=== PATIENT | female | born 1955 | race Caucasian/White ===

== ENCOUNTER 2018-10-03 12:08 | Inpatient (IN) | payer MEDICARE ==
[~2018-10-03] VITALS: Ht 165.1 cm; Wt 39.5 kg
[~2018-10-03 12:08] MED LIST: ACETAMINOPHEN500 M1 PO; ADVAIR 500-501 EACH INH; ALBUTEROL2.5 MG/0.5 INH; BUPRENORPHIN-N1 EACH SL; DOXYCYCLINE HY100 MG PO; LIDOCAINE30 G TOP; METHOCARBAMOL500 MG PO; OMEPRAZOLE20 MG PO; VENTOLIN HFA18 GM INH; ZOLOFT100 MG PO
--- OUTSIDE RECORDS SUMMARY | 2018-10-03 12:12 | XMS ---
PreManage Notification: KAILYN MEJÍA Security Tal[employer] S[employer]cer Events No recent Security Events currently on file CRITERIA MET - [facility] CARE PROVIDERS Ariel Almaraz MD Primary Care Current PHONE: Unknown oredgardo Case or Maitre D' Current PHONE: Unknown Kaelyn ALMARAZ Current PHONE: Unknown Barbara has no Care Guidelines for this patient. E.D. VISIT COUNT (12 MO.) 1 [facility] Cuevas TOTAL 1 NOTE: Visits indicate total known visits. ED/UCC VISIT TRACKING (12 MO.) 10/03/2018 12:09 N[facility] Kramer OR TYPE: Emergency COMPLAINT: - VOMITING, COUGHING, BODYACHES, SINUS DISCHARGE INPATIENT VISIT TRACKING (12 MO.) No inpatient visits to display in this time frame [email or web address]
[2018-10-03] MEDS ORDERED: MACROBID 100 M100 MG PO (14:49)
--- NOTE | 2018-10-03 16:40 | NUR ---
63 YEAR OLD FEMALE PATIENT ADMITTED TO CCU VIA STRETCHER UNDER DR. GARCIA WITH DX OF SEPSIS R/T PNEUMONIA/UTI. PATIENT IS ALERT ORIENTED AND COOPEATIVE, C/O MILD PAIN IN UPPER RIGHT QUAD, STATES DISCOMFORT INCRREASES WITH COUGH. FOR PAST 3 WEEKS PATIENT HAS BEEN WITH NONPRODUCTIVE COUGH. HAS HAD WEIGHT LOSS OF APPROX 40 LBS OVER THER LAST 3 MONTHS. IVF OF D5 LR HUNG AT 100 ML HR. CROWE CATH PATENT WITH MANUEL URINE NOTED. ADMISSION PROCESS STARTED. FRIEND IN ROOM.
--- NOTE | 2018-10-03 17:00 | NUR ---
ORDERS RECIEVED FOR CT OF ABD. PATIENT STATES SHE FEELS UNABLE TO TAKE PO CONTRAST. DR. GARCIA AWARE. WILL GIVE ZOFRAN TO PRE MEDICATED IN ORDER TO ATTEMPT ORAL CONTAST. PATIENT IS AWARE.
--- NOTE | 2018-10-03 17:15 | NUR ---
ZOFRAN 4 MG IV GIVEN.
[2018-10-03] MEDS ORDERED: ZANAFLEX4 MG PO (17:26)
[2018-10-03] MEDS ORDERED: ALLERGY MEDICAT25 M1 PO (17:28)
--- NOTE | 2018-10-03 17:29 | NUR ---
Medications reconciled with medication vials and patient interview. Patient will use her own buprenorphine 8mg/naloxone 2mg
--- NOTE | 2018-10-03 19:27 | NUR ---
C/O BACK PAIN, REQUESTING TYLENOL. REPORT GIVEN TO NEXT SHIFT.
--- NOTE | 2018-10-03 19:35 | NUR ---
REPORT RECEIVED FROM TIANA MENDEZ. PT AWAKE IN BED. HAS PAINFUL LOOK ON FACE, WAS JUST GIVEN TYLENOL FOR HEADACHE, BACK ACHE AND ABD PAIN. POC EXPLAINED TO PT, PT AGREEABLE. URINE OUTPUT HAS BEEN LESS THAN 25, WILL LET DR GARCIA KNOW. PT ENCOURAGED TO DRINK CT CONTRAST BUT STATES SHE DOESNT FEEL LIKE SHE CAN GET IT DOWN. ALERT AND ORIENTED, LUNGS WITH SL WHEEZES, QUITE DIM AND DIFFICULT FOR PT TO TAKE DEEP BREATH WITHOUT COUGHING AND HAVING PAIN.
--- NOTE | 2018-10-03 20:23 | NUR ---
RT IN TO DO NEB TX.
--- NOTE | 2018-10-03 21:44 | NUR ---
RT IN TO DO PABLO.
--- NOTE | 2018-10-04 | NUR ---
IN TO DO ASSESSMENT AND CHECK ON PT, SHE HAS BEEN RESTFUL. DENIES NEED FOR FURTHER PAIN MEDS AT THIS TIME, BACK TO SLEEP QUICKLY. CONT HOURLY URINE OUTPUTS.
--- NOTE | 2018-10-04 02:00 | NUR ---
PT RESTING, EYES CLOSED, HR 70'S, RR 18. URINE OUTPUT CONT TO BARELY MEET PARAMETERS. CONT TO MONITOR.
--- NOTE | 2018-10-04 04:50 | NUR ---
IN FOR ASSESSMENT. NO REQUESTS OR C/O.
--- NOTE | 2018-10-04 06:22 | NUR ---
PT AWAKE IN BED, STATES SHES HAD THE BEST NIGHTS SLEEP SHES HAD IN A LONG TIME. URINE OUTPUT HAS BEEN 25-30ML/HR THROUGH THE NIGHT. STILL C/O RIGHT SIDEDED UPPER ABDOMINAL PAIN. WILL TRY TO DRINK TO CT CONTRAST THIS MORNING.
--- NOTE | 2018-10-04 08:17 | NUR ---
Assessment completed see flowsheet. pt sitting up in bed coughing. nonproductive hacking cough. Sat 93% on RA. RT in room for breathing tx. Instructed pt on the need to drink contrast for CT at 1000. No needs voiced at this time. will continue to monitor.
--- NOTE | 2018-10-04 08:55 | NUR ---
0845 pt finished PO contrast for CT scan
--- NOTE | 2018-10-04 10:50 | NUR ---
[address] to [address] scan with this RN and transport. pt tolerated CT well brought pt back to room and pt ordered lunch. no needs voiced at this time. will continue to monitor
--- NOTE | 2018-10-04 12:24 | NUR ---
1200 assessment unchanged from previous. pt sitting up in bed eating lunch. no needs or complaints voiced at this time. will continue to monitor.
--- NOTE | 2018-10-04 19:30 | NUR ---
REPORT RC'D FROM DAY SHIFT NURSE DAT. REPORTS CONTINUED HOURLY URINE OUTPUT MONITORING, CT COMPLETED, ON ROOM AIR ALL DAY, AFEBRILE, REFUSED PAIN MEDICATION BUT TYLENOL GIVEN. PT RESTING IN BED WATCHING TV.
--- NOTE | 2018-10-04 20:00 | NUR ---
AAOX4 AND RESPONDING APPROPRAITELY. SINUS RHYTHM ON MONITOR. NO EDEMA. ON ROOM AIR, COARSE AND EXPIRATORY WHEEZE TO BUL, BLL DIMINISHED, R/T IN ROOM TO GIVEN NEB AND INSTRUCT ON I/S AND CPT USE. BOWEL TONES ACTIVE X4, DENIES NAUSEA, ENCOURAGED PO INTAKE. NO ACTE CHANGES TO INTEGUMENTARY. IV SITE FLUSHED, PATENT, WNL, D5LR INFUSING AT [address] DRAINING YELLOW URINE, HOURLY OUTPUT MONITORING, CATH CARE COMPLETED. DENIES OTHER NEEDS. CALL LIGHT WITHIN REACH.
--- NOTE | 2018-10-04 20:37 | NUR ---
Patient was offered to get cleaned up with bed bath wipes and said she "wasnt feeling up to it". Patient did ask for a cola which was OKed by RNAlivia.
--- NOTE | 2018-10-04 20:40 | NUR ---
DR. GARCIA NOTIFIED OF TRENDING URINE OUTPUT. ORDER RC'D FOR 500 ML LR BOLUS ONCE NOW, READ BACK AND VERIFIED.
--- NOTE | 2018-10-04 22:00 | NUR ---
LR BOLUS COMPLETED, HOURLY OUTPUT 100 MLS. WILL CONTINUE TO MONITOR. PT C/O 10/22 KITCHEN, 650 MG PRN TYLENOL GIVEN.
--- NOTE | 2018-10-04 23:00 | NUR ---
150 ML URINE OUTPUT NOTED. PT STATES KITCHEN IMPROVING AFTER PRN TYLENOL, CURRENT RATING 4/10.
--- NOTE | 2018-10-05 00:30 | NUR ---
NO ACUTE CAHNGES TO ASSESSMENT. OUTPUT INCREASED. DENIES PAIN, STATES KITCHEN RESOLVED. ENCOURAGE REST AND REINFORCED PAIN MANAGEMENT.
--- NOTE | 2018-10-05 02:00 | NUR ---
PT RESTING WITH EYES CLOSED, RESPIRATIONS EVEN AND UNLABORED, NO ACUTE DISTRESS NOTED. URINE OUTPUT QS.
--- NOTE | 2018-10-05 04:30 | NUR ---
PT REMAINS RESTFUL. NO ACUTE CHANGES TO ASSESSMENT. PT EASILY FALLS BACK TO SLEEP.
--- NOTE | 2018-10-05 06:43 | NUR ---
PT RESTED WELL FOR MOST OF SHIFT. PAIN WELL CONTROL WITH ONE PRN DOSE TYLENOL. SINUS RHYTHM AND BP WNL. LUNGS SOUNDS MIXED THROUGHOUT SHIFT, TOLERATING ROOM AIR, NONPRODUCITVE COUGH, I/S AND CPT USED WHILE AWAKE. NO NAUSEA. CROWE CATH IN PLACE, VOIDING QS THROUGHOUT SHIFT. D5LR INFUSING AT 125. NO ACUTE CHANGES TO INTEGUMENTARY.
--- NOTE | 2018-10-05 09:26 | NUR ---
Murry catheter d/c per order and IV fluids decreased to 100ml/hr per order
[2018-10-05] MEDS ORDERED: IPRAT-ALBUT 0.5-3 ML INH (09:54)
--- NOTE | 2018-10-05 10:01 | NUR ---
Orders received to transfer pt to med/surg. Report called to Jem MENDEZ. pt belongings packed up and moved with pt to floor via wheelchair.
--- NOTE | 2018-10-05 10:03 | NUR ---
0955: PT ARRIVED TO MED-SURG A TRANSFER FROM CCU. REPORT RECIEVED FROM DAT MENDEZ. PT ARRIVED VIA CHAIR. PT NOW SITTING UP IN THE CHAIR AND HAS PAIN IN HER RIGHT SIDE ONLY WHEN COUGHING AND CHRONIC BACK PAIN. PT STATES HER BREATHING IS "NOT TO BAD". VITAL SIGNS STABLE AT THIS TIME.
--- NOTE | 2018-10-05 10:16 | NUR ---
PATIENT SITTING UP IN CHAIR. RN IN ROOM. ICE WATER AND SODA GIVEN. CALL LIGHT WITHIN REACH. NO OTHER NEEDS AT THIS TIME
--- NOTE | 2018-10-05 10:58 | NUR ---
PATIENT SITTING UP IN CHAIR. PATIENT GOES TO WALK IN THE TILLMAN. PATIENT USES A WALKER. PATIENT BACKS TO CHAIR. ONE PERSON ASSISTING. CALL LIGHT WITHIN REACH. NO OTHER NEEDS AT THIS TIME
--- NOTE | 2018-10-05 11:30 | NUR ---
PT STATES HER KITCHEN HAS IMPROVED TO A 3/10. SHE DECLINES A SHOWER AT THIS TIME.
--- NOTE | 2018-10-05 12:30 | NUR ---
PATIENT SITTING UP IN CHAIR. PATIENT'S LUNCH ORDERED. CALL LIGHT WITHIN REACH. NO OTHER NEEDS AT THIS TIME
--- NOTE | 2018-10-05 12:58 | NUR ---
PT SITTING IN HER CHAIR AND SHE DENIES ANY PROBLEMS AT THIS TIME.
--- NOTE | 2018-10-05 14:06 | NUR ---
PATIENT SITTING UP IN CHAIR. VITAL SIGNS AND I&O DONE. PATIENT GOES TO USE THE BATHROOM. PATIENT USES A WALKER. ONE PERSON ASSISTING. PATIENT BACKS TO CHAIR. CALL LIGHT WITHIN REACH. NO OTHER NEEDS AT THIS TIME
--- NOTE | 2018-10-05 14:22 | NUR ---
PT RESTING IN HER CHAIR WITH NO NEW COMLAINTS AT THIS TIME. SHE HAS VOIDED 350 OF YELLOW URINE AT A SINGLE TIME WITHOUT DIFFICULTY A FEW HOURS FOLLOW THE REMOVAL OF HER CROWE. PT STATES HER CURRENT PAIN LEVEL IN HER BACK AND SIDE ARE UNDER GOOD CONTROL. CALL CHAVEZ WITHIN REACH.
--- NOTE | 2018-10-05 16:56 | NUR ---
TEMP 98.5. PT ENCOURAGED TO CONTINUE USING HER IS WHICH SHE STATES SHE HAS BEEN.
--- NOTE | 2018-10-05 17:36 | NUR ---
PATIENT SITTING UP IN CHAIR. VITAL SIGNS AND I&O DONE. ICE WATER GIVEN. CALL LIGHT WITHIN REACH. NO OTHER NEEDS AT THIS TIME
--- NOTE | 2018-10-05 18:14 | NUR ---
CALL LIGHT ANSWERED. PATIENT USING BATHROOM. PATIENT USES A WALKER. PATIENT GOES TO WALK IN THE TILLMAN. ONE PERSON ASSISTING. PATIENT BACKS TO BED. CALL LIGHT WITHIN REACH. NO OTHER NEEDS AT THIS TIME
--- NOTE | 2018-10-05 20:40 | NUR ---
PATIENT COMPLAINED OF BURNING PAIN AT CROWE SITE 9/10 ON PAIN SCALE. PATIENT STATES " I DON'T UNDERSTAND WHY THERE IS A CROWE WHEN I DIDN'T HAVE MESH PLACED" PROVIDED PATIENT WITH REASSURANCE AND EDUCATION, DISCUSSED BED REST ORDER AND THE NEED FOR THE CROWE CATH. PATIENT APPEARS AGITATED AND RESTLESS, SISTER IN ROOM REQUESTING FOR CROWE TO BE REMOVED OR GIVEN NUMBING MEDICINE. DISCUSSED WITH PATIENT AND SISTER THAT NURSE JUST ADMINISTERED OXYCODONE AND PHENERGAN IV, AND SHOULD ALLOW FOR MEDICINE TO WORK. PATIENT VERBALIZED UNDERSTANDING. PROVIDED PATIENT WITH ICE WATER, JELLO, APPLE SAUCE, AND SALTINE CRACKERS.
--- NOTE | 2018-10-05 21:00 | NUR ---
PATIENT UP TO BATHROOM VOIDING WELL, CLEAR URINE. ADMINISTERED HS MEDICAITONS. FULL BODY ASSESMENT DONE. PAIN TOLERABLE. LUNG SOUNDS COURSE THROUGHOUT. PATIENT STATES " I AM EXCITED TO GO HOME TOMORROW. CALL LIGHT WITHIN REACH. NO OTHER NEEDS AT THIS TIME.
--- NOTE | 2018-10-05 22:07 | NUR ---
patient used call light to ask for assistance into the restroom. Her IV Pump was also beeping so VANESSA Coto came along and programmed her pump. Nothing else was needed at this time.
--- NOTE | 2018-10-05 22:45 | NUR ---
BUILDING CERTIFIER ROUNDING NOTE. PT RESTING IN BED WATCHING TV. PT DENIES NEEDS AT THIS TIME. VISITS WITH KAITLIN ABOUT [facility]. PT DENIES NEEDS AT THIS TIME. CALL LIGHT IN REACH. WHITE BOARD UPDATED.
--- NOTE | 2018-10-05 22:49 | NUR ---
Patient used call light to use restroom. She walks well. Her VS and I&Os are complete. Call light within reach along with BST.
--- NOTE | 2018-10-05 23:32 | NUR ---
PATIENT UP TO BATHROOM WITHOUT ASSIST, STRETCHING CORD TO IV PUMP ACROSS ROOM AND URINATING ON FLOOR. PATIENT HAS BEEN UP SEVERAL TIMES IN LAST TWO HOURS, CALLING IN URGENCY TO USE TOILET. URINE CLEAR AND DILUTE. VOIDED 500 ML PLUS MISSING HAT WITH SOME. DR. GARCIA AT [facility], DISCUSSED PATIENT'S URGENCY. NEW ORDER TO DC IV FLUIDS AND STOPPED AT THIS TIME. PATIENT AWARE AND VERBALIZES GRATITUDE STATING " MAYBE NOW I WILL BE ABLE TO GET A GOOD NIGHT'S SLEEP." PATIENT SITTING UP IN BED AT THIS TIME, PROVIDED ICE WATER. NO OTHER NEEDS AT THIS TIME. CALL LIGHT WITHIN REACH.
--- NOTE | 2018-10-06 03:10 | NUR ---
PT UTILIZES CALL LIGHT, REPORTS KITCHEN 10/22. PRN TYLENOL REQUESTED, ADMINISTERED. PT DENIES FURTHER NEEDS. CALL LIGHT IN REACH.
--- NOTE | 2018-10-06 05:00 | NUR ---
PATIENT SLEEPING SOUNDLY. APPEARS CALM. EYES CLOSED. CALL LIGHT WITHIN REACH. RR 14, 02 SATURATION 95% RA.
--- NOTE | 2018-10-06 06:45 | NUR ---
PT RESTED WELL FOR MOST OF SHIFT. PAIN WELL CONTROL WITH ONE PRN DOSE TYLENOL. LUNG SOUNDS COURSE AND CLEAR THROUGHOUT. TOLERATING ROOM AIR WELL. NON PRODUCTIVE COUGH, IS AND CP USED WHILE AWAKE. NO NAUSEA. UP TO THE BATHROOM MULTIPLE TIMES, IV FLUIDS DCD. VOIDING WELL.
--- NOTE | 2018-10-06 07:35 | NUR ---
BEDSIDE REPORT RECIEVED FROM GIANNI MENDEZ. PT RESTING IN BED WITH NO COMPLAINTS AT THIS TIME. CALL CHAVEZ WITHIN REACH.
--- NOTE | 2018-10-06 08:13 | NUR ---
PATIENT IN BED RESTING. PATIENT REFUSED TO GET UP TO CHAIR DUE TO BEING TIRED. CALL LIGHT IN REACH. NO FURTHER NEEDS AT THIS TIME.
[2018-10-06] MEDS ORDERED: LEVOFLOXACIN500 MG PO (09:10)
--- NOTE | 2018-10-06 09:13 | NUR ---
PT RESTING IN BED AND DENIES ANY SOB OR PAIN.
[2018-10-06] MEDS ORDERED: TESSALON PERLE100 MG PO (11:09)
--- NOTE | 2018-10-06 11:17 | NUR ---
DC INSTRUCTIONS GIVEN TO THE PT WITH GOOD UNDERSTANDING STATED. IV'S DC'D WITH TIPS INTACT. PT CALLING FOR HER RIDE HOME AT THIS TIME.
--- NOTE | 2018-10-06 11:38 | NUR ---
PT GETTING READY FOR DC AT THIS TIME. HER PERSONAL BUPRENORPHINE AND NALOXONE SL FILMS WERE RETURNED TO HER. VSS.
== END 2018-10-06 12:15 | disposition home or self-care (01) | DRG 871 ==
LOC: ED 12:08 → CCU 15:59 → MS 10-05 09:50
PROVIDERS: ADMIT Internal Medicine
DX: A40.3 Sepsis due to Streptococcus pneumoniae (principal); J13 Pneumonia due to Streptococcus pneumoniae; E43 Unspecified severe protein-calorie malnutrition; J44.0 Chronic obstructive pulmonary disease with (acute) lower respiratory infection; F11.20 Opioid dependence, uncomplicated; Z68.1 Body mass index [BMI] 19.9 or less, adult; E86.0 Dehydration; R63.4 Abnormal weight loss; K21.9 Gastro-esophageal reflux disease without esophagitis; F39 Unspecified mood [affective] disorder; M54.9 Dorsalgia, unspecified; G89.29 Other chronic pain; Z87.891 Personal history of nicotine dependence; Z88.1 Allergy status to other antibiotic agents; Z88.0 Allergy status to penicillin; Z79.51 Long term (current) use of inhaled steroids; Z79.899 Other long term (current) drug therapy
CPT/HCPCS: 36415; 51702; 71045; 74177; 80053; 81001; 82550; 83605; 83690; 83735; 85025; 87088; 87449; 87899; 94640; 94667; 94668; 99285-25; J0696; J1650; J1956; J2405; J3475; J7040; J7120; Q9967

== ENCOUNTER 2019-05-24 14:33 | Inpatient (IN) | payer MEDICARE ==
[~2019-05-24] VITALS: Ht 165.1 cm; Wt 39.8 kg
[~2019-05-24 14:33] MED LIST changes: +ALLERGY MEDICAT25 M1 PO; +IPRAT-ALBUT 0.5-3 ML INH; +LEVOFLOXACIN500 MG PO; +MACROBID 100 M100 MG PO; +TESSALON PERLE100 MG PO; +ZANAFLEX4 MG PO
--- OUTSIDE RECORDS SUMMARY | 2019-05-24 15:29 | XMS ---
PreManage Notification: KAILYN MEJÍA Security [employer] Events No recent Security Events currently on file CRITERIA MET - [facility] CARE PROVIDERS BETITO [facility] 10/03/2018-Current PHONE: [phone] Ariel Almaraz MD Primary Care Current PHONE: Unknown sukhi Javier or Brand Attendant Current PHONE: Unknown Kaelyn ALMARAZ Current PHONE: Unknown Barbraa has no Care Guidelines for this patient. Care History Medical/Surgical 10/03/2018 [facility] - Patient is currently established with [facility]. If patient is seen in the ED during business hours. Please contact CHWs at [facility]. Care Recommendation: This patient has had 5 or more Emergency Department visits in the last 12 months.\T\nbsp; Patient requires education on the scope and purpose of the ED as an acute care provider not a Primary Care Provider and should not be utilized for chronic conditions.\T\nbsp; These are guidelines and the provider should exercise clinical judgment when providing care. E.D. VISIT COUNT (12 MO.) 2 [facility]. TOTAL 2 NOTE: Visits indicate total known visits. ED/UCC VISIT TRACKING (12 MO.) 05/24/2019 14:35 [facility] OR TYPE: Emergency COMPLAINT: - ABD MASS 10/03/2018 12:09 [facility] OR TYPE: Emergency COMPLAINT: - VOMITING, COUGHING, BODYACHES, SINUS DISCHARGE INPATIENT VISIT TRACKING (12 MO.) 10/03/2018 15:59 [facility] OR TYPE: Medical Surgical COMPLAINT: - SEPSIS DIAGNOSES: - Chr obstructive pulmon disease with (acute) lower resp infct - Gastro-esophageal reflux disease without esophagitis - Other chronic pain - Other chronic pain - Opioid dependence, uncomplicated - Allergy status to penicillin - Sepsis due to Streptococcus pneumoniae Sepsis du - Other residential (current) drug therapy - Dehydration - Pneumonia due to Streptococcus pneumoniae - Abnormal weight loss - Pneumonia due to Streptococcus pneumoniae - Unspecified mood [affective] disorder - Gastro-esophageal reflux disease without esophagitis - Chr obstructive pulmon disease with (acute) lower resp infct - Opioid dependence, uncomplicated - Abnormal weight loss - 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
--- NOTE | 2019-05-24 18:16 | EKG ---
[facility] [address] [place] [address] Signed Normal sinus rhythm Minimal voltage criteria for LVH, may be normal variant Nonspecific T wave abnormality Abnormal ECG No previous ECGs available Confirmed by SARAH DOUGLAS MD ([id number]) on 05/24/2019 6:16:24 PM Electronically Signed By: SARAH DOUGLAS MD 05/24/19 1816 PATIENT NAME: KAILYN MEJÍA POOJA Electrocardiogram DATE OF : 55 PHYSICIAN: SARAH DOUGLAS MD REPORT #: [id number] REPORT IS CONFIDENTIAL AND NOT TO BE RELEASED WITHOUT AUTHORIZATION
--- NOTE | 2019-05-24 18:50 | NUR ---
64YR OLD WOMAN ADMITTED FROM ER VIA STRETCHER TO ROOM 113, PT IS ALERT, ORIENTED, ABLE TO STAND AND TRANSFER ONTO BED WITH ASSIST. NS BOLUS INFUSING INTO R AC, ORIENTED TO ROOM AND CALL LIGHT, ORDERS RECIEVED. DENIES ANY NEEDS AT THIS TIME.
--- NOTE | 2019-05-24 19:24 | NUR ---
SHIFT REPORT RECIEVED FROM TAD MENDEZ. PT REPORTS PAIN 8/10 IN ABD. IV CDI, WNL. WILL LOOK INTO EMAR FOR PAIN RELIEF OPTIONS. NO OTHER NEEDS, CALL LIGHT IN REACH.
--- NOTE | 2019-05-24 19:45 | NUR ---
PT PROVIDED PRN PAIN MEDICATION. ASSESSMENT COMPLETED. RIGHT ABDOMEN HAS RED AREA WEITH BASEBALL SIZED MASS. NO OTHER NEEDS. CALL LIGHT IN REACH.
--- NOTE | 2019-05-24 22:03 | NUR ---
SCHEDULED MED PROVIDED. PT UP TO BR WITH 1PA AND BACK TO BED. VS AND I&O COMPLETED. PT STATES PAIN IN ABD IS 5/10. PT DENIES NEED FOR FURTHER PAIN INTERVENTIONS. NO OTHER NEEDS, CALL LIGHT IN REACH.
--- NOTE | 2019-05-24 22:03 | NUR ---
Potassium chloride, lidocaine mixed in D5- 250 mL with Sourav Morrison via telepharmacy observing. Medication provided to staff nurse for administration.
--- NOTE | 2019-05-25 00:01 | NUR ---
PT RESTING IN BED, EYES CLOSED. RR 16, EVEN, UNLABORED. CALL LIGHT IN REACH.
--- NOTE | 2019-05-25 00:53 | NUR ---
IV MEDICATION HUNG PER ORDER. pt RESTING IN BED. NO REQUESTS AT THIS TIME. CALL LIGHT WITHIN REACH.
--- NOTE | 2019-05-25 01:43 | NUR ---
PT IN 12/22 PAIN IN ABD. PRN PAIN MED PROVIDED.ASSESSMENT, VS AND I&O COMPLETED. IV INFUSING PER ORDER. NO OTHER NEEDS. CALL LIGHT IN REACH.
--- NOTE | 2019-05-25 02:45 | NUR ---
PT COMPLAINS OF NAUSEA. PRN NAUSEA MED PROVIDED. SCHEDULED MED PROVIDED. NO OTHER NEEDS AT THIS TIME. CALL LIGHT IN REACH.
--- NOTE | 2019-05-25 04:12 | NUR ---
PT RESTING IN BED, EYES CLOSED. RR 16, EVEN, UNLABORED. CALL LIGHT IN REACH.
--- NOTE | 2019-05-25 05:59 | NUR ---
PT PAIN 8/10 IN ABD. PRN PAIN MED PROVIDED. SCHEDULED IV MED PROVIDED. VS AND I&O COMPLETED. PT UP TO BR AND BACK TO BED, SBA. NO OTHER NEEDS, CALL LIGHT IN REACH.
--- NOTE | 2019-05-25 06:34 | NUR ---
PT HAS NOT SLEPT WELL THIS SHIFT. PT REQUIRED PRN PAIN MEDICATION SEVERAL TIMES. NAUSEA MEDICATION ONCE. PAIN WAS MODERATELY MANAGED WITH PRN PAIN MED. ABD TENDER, BASEBALL SIZED FIM MASS ON RIGHT ABD WITH REDNESS TO THE SKIN. BOWEL TONES ACTIVE. VSS, UO SUFFICIENT. SBA FOR AMBULATION. IV CDI, WNL, FLUSHED WELL. PT TOLERATED IV MEDICATIONS AND FLUIDS WELL. PT DOES NOT WANT TO WEAR SCDs UNTIL AFTER SURGERY.
--- NOTE | 2019-05-25 07:22 | NUR ---
BEDSIDE REPORT RECEIVED PT AWAKE TALKING WITH DR MILLS
--- NOTE | 2019-05-25 07:52 | NUR ---
PT AWAKE, ALERT, ORIENTED, STATED SHE HAD JUST SPOKE WITH DR MILLS AND UNDERSTANDS SURGERY, SURGICAL CONSENT SIGNED BY HER AT THIS TIME, I ALSO SPOKE TO HER REGARDING POLST FORM FILLED OUT AND SHE CONFIRMS POLST FORM IS HER WISHES AND SHE SIGNED FORMED AT THIS TIME. DENIES ANY QUESTIONS OR CONCERNS.
--- NOTE | 2019-05-25 07:54 | NUR ---
DR MILLS CALLED BACK TO FLOOR AND ORDERED PHOS AND PREALBUMIN TO BE ADDED TO AM BLOOD DRAW, LAB NOTIFIED.
--- NOTE | 2019-05-25 09:53 | NUR ---
PT RESTING IN BED RATES PAIN 7/10 DILAUDID ADMINISTERED. PT UP TO TOILET RETURNS TO RESTING IN BED AGREES PAIN IS NOW WELL CONTOLLED. K RIDER STARTED PT C/O PAIN SLOWED INFUSION. IV STARTED OPPOSITE ARM FOR ABX THERAPY
--- NOTE | 2019-05-25 10:50 | NUR ---
DR MILLS IN TO SEE PT PREOP
--- NOTE | 2019-05-25 11:05 | NUR ---
pt to o/r via bed
--- NOTE | 2019-05-25 15:37 | CONS ---
[facility] [address], [place] [address] Signed DATE OF CONSULTATION: 05/25/2019 CHIEF COMPLAINT: Periumbilical abdominal pain. HISTORY OF PRESENT ILLNESS: Kailyn is a 64-year-old female, I have known for many years, however, I have not seen her in the office in quite some time. Originally, she required an open appendectomy for necrotizing appendicitis. Later, she had a laparoscopic cholecystectomy. She has been a long-time smoker and has COPD. In fact, she had pneumonia in September of this year and finally decided to quit smoking. She apparently has a mood disorder, but she has always been on the anorexic side, really does not take much by mouth. In fact, on this occasion, she is quite cachectic. She told me today that she has never been and has no children. Her 4 of her 5 brothers were all . Her remaining brother was and she has not talked to him since around 2004. Apparently, his does not approve of Kailyn. Kailyn does have a house here in town, but currently has been living with a friend, who has not been feeling well. She has no specific medical or legal [id number]. Nevertheless, she was very clear today about her DNR DNI status with no CPR. She does not want enteral tube feeds and she is not particularly interested in any prolonged time on the ventilator or endotracheal tube. The last month, probably she has been having trouble with what sounds like abdominal pain, probably in the lower abdomen. She received some antibiotics, but never really got completely better. She started to develop erythema and swelling underneath the umbilicus. Consequently, she had gone [facility]. They sent her over to the emergency room for evaluation. Although, the white count is normal. She clearly has a large fluid collection between the mesh and the abdominal wall. It probably is 10 x 12 x 1.5 cm. There are actually bubbles of gas in that. Her chest x-ray also shows her hyperinflated lungs. She was admitted last night and hydrated with consultation to her medical service. Her potassium and magnesium were low and replaced. We are still awaiting those repeat results this morning. Her repeat white blood cell count is good at 9.6. She has also been urinating quite well. In general, she is overall feeling better, but is taking quite a bit of pain medication. PAST MEDICAL HISTORY: Depression/mood disorder, chronic anorexia, gastroesophageal reflux disease, hiatal hernia, cough, COPD, chronic low back pain, ruptured necrotizing appendicitis, cholelithiasis, adenomatous colonic polyps in rectum in 2008, paresthesia of the right lower extremity. PAST SURGICAL HISTORY: Includes her lumbar surgeries without metal remaining, tonsillectomy, open appendectomy in 2008 through a lower midline incision, and laparoscopic cholecystectomy in 2008 as well as upper and lower endoscopy in December 2009. She had her ventral hernia repair Electronically Signed By: MARIA G MILLS MD 05/25/19 1537 PATIENT NAME: KAILYN MEJÍA CONSULTATION DATE OF : 55 REPORT #: [id number] PHYSICIAN: MARIA G MILLS MD PCP: ISMAEL RAMÍREZ DO REPORT IS CONFIDENTIAL AND NOT TO BE RELEASED WITHOUT AUTHORIZATION [address] [address] Signed with a large 22.1 x 27.1 cm [employer] mesh in April 2010. MEDICATIONS: Zoloft, Prilosec, Tylenol, buprenorphine, naloxone, albuterol, tizanidine, diphenhydramine, ipratropium, and albuterol. ALLERGIES: Include erythromycin, azithromycin and Augmentin. SOCIAL HISTORY: She smoked up to two packs of cigarettes a day, but finally quit earlier this year. She does not drink. She is single and has never had children. Four of her five brothers are . She has not talked to her brother since 2004. She is disabled from her back. 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 She uses a cane to ambulate, but did not bring it with her currently. She generally keeps her right lower extremity straight and also has some paresthesia. She does drive on own and does have a house, although she is currently living with a friend. Dr. Ismael Ramírez is her primary care provider. She prefers the [facility]. She explained to me very unequivocally that she wants to be a DNR DNI. She does not want prolonged intubation or ventilatory support. She would accept parenteral nutrition, but not internal nutrition through a feeding tube. FAMILY HISTORY: No family history of colon cancer, heart disease, or abnormal reaction to anesthesia. Her brother of a brain aneurysm. Her maternal grandfather of an abdominal aortic aneurysm and her mom had diabetes. She has no knowledge of her father's side of the family. REVIEW OF SYSTEMS: She had 10 systems reviewed and amazingly she is thinner than what I remember from before. In fact, she is quite cachectic. She says she just does not have much appetite. She said the last 30 days has been worse with her abdominal pain. We did review her DNR DNI status. PHYSICAL EXAMINATION: VITAL SIGNS: Her blood pressure is 125/79, heart rate 94, her respiratory rate 16, her temperature is 100.6 degrees. She is 95% on 2 L nasal cannula. She is 5 feet 5 inches at 39 kg. GENERAL: Kailyn is a 64-year-old female, who actually appears much older than her stated age. It is clear, she has been a long-time smoker. She is actually cachectic. She has some kyphosis. She has mild to moderately distant breath sounds. HEART: Regular rate and rhythm without murmurs. ABDOMEN: Generally soft and flat, not particularly distended, but she clearly has erythema around the skin of the umbilicus and it is swollen and protruding out probably Electronically Signed By: MARIA G MILLS MD 05/25/19 1537 PATIENT NAME: KAILYN MEJÍA CONSULTATION DATE OF : 55 REPORT #: [id number] PHYSICIAN: MARIA G MILLS MD PCP: ISMAEL RAMÍREZ DO REPORT IS CONFIDENTIAL AND NOT TO BE RELEASED WITHOUT AUTHORIZATION [facility] [address], [place] [address] Signed 5-6 cm in diameter. She is tender to palpation. LABORATORY DATA: Her white blood count 9.6, her hemoglobin is 10.9 with neutrophils 80. Potassium is 3.1 with a magnesium 1.0, BUN 16, creatinine 0.7, glucose 104. Urinalysis was negative. Albumin was low at 3.2. Her lipase was 3. RADIOGRAPHIC STUDIES: Her chest x-ray shows hyperinflated clear lungs. CT scan of the abdomen and pelvis is reviewed and she clearly has a 10 x 12 x 1.5 cm fluid collection with gas bubbles between the mesh and the anterior abdominal wall. ASSESSMENT AND PLAN: Kailyn is a 64-year-old significantly debilitated female, who clearly has an infection involving her mesh from 10 years ago. I suspect there was a piece of bowel along the edge or somewhere involved in all this. She is also anemic and has significant cachexia and is quite malnourished. I have reviewed all this in detail with Kailyn and our two nurses present. Kailyn wants to remain a DNR, DNI with no prolonged endotracheal tube or ventilatory support. She declines enteral nutrition, but would accept parenteral nutrition. I explained to Kailyn to fix this we have to use her previous midline incision, take out the mesh and we will have to go through all the small bowel and see if there are any areas that need repaired. She may or may not require resection of bowel. She may or may not require an ostomy. The ostomy could be permanent as well. I explained to her that she is at extremely high risk given her medical history and her nutritional status. We are waiting for her potassium and her magnesium levels to come back this morning and we need to get was repleted and we need to get her surgery probably later today, so long as we can get her electrolytes corrected. At this point, she is urinating well and seems to be hydrated. We did review the risks of the surgery including, but not limited to bleeding, infection, scarring, change in contour of the skin, damage to bowel, infection of the abdomen or the wound as well as possible colostomy as well as realistic mortality and other unforeseen comorbidities. She has expressed understanding and would like to proceed as above. Maria G Mills MD ALB/MODL /[id number] Electronically Signed By: MARIA G MILLS MD 05/25/19 1537 PATIENT NAME: KAILYN MEJÍA CONSULTATION DATE OF : 55 REPORT #: [id number] PHYSICIAN: MARIA G MILLS MD PCP: ISMAEL RAMÍREZ DO REPORT IS CONFIDENTIAL AND NOT TO BE RELEASED WITHOUT AUTHORIZATION [address] [address] Signed cc: DO Maria G Ramachandran MD Copies: ISMAEL RAMÍREZ ANDREW L MD ~ Electronically Signed By: MARIA G MILLS MD 05/25/19 1537 PATIENT NAME: KAILYN MEJÍA CONSULTATION DATE OF : 55 REPORT #: [id number] PHYSICIAN: MARIA G MILLS MD PCP: ISMAEL RAMÍREZ DO REPORT IS CONFIDENTIAL AND NOT TO BE RELEASED WITHOUT AUTHORIZATION
--- NOTE | 2019-05-25 15:49 | NUR ---
05/25/19 1549 Tuyet Frias 1530: PT ARRIVES TO CCU ROOM 129. CCU RN'S HELP SITUATE PT. PT HAS ORAL AIRWAY IN PLACE. SHE IS NOT RESPONSIVE TO STIMULUS AT THIS TIME, BUT IS EXCHANGING AIR.
--- NOTE | 2019-05-25 16:00 | NUR ---
PATIENT ADMITTED TO ROOM [address] MILLS. PT HAS A CENTRAL LINE TO RIGHT IJ III. TPN TO BE STARTED. IV K PHOS AND IV CEFEPIME TO BE GIVEN WELL. PT IS AWAKE, MAINTAING SP02 >90 ON ROOM AIR AT THIS TIME. PT IN A NSR WITH HR IN THE 80-90s. PT MOANING SOME IN PAIN. PRN DILAUDID AVAILABLE. CROWE DRAINING CLEAR YELLOW URINE. UROMETER ADDED TO CROWE. BLOOD PRESSURE STABLE. MIDLINE INCISION COVERED WITH GAUZE, AND HAS AN OPEN AREA PER MINE PATROL. DRESSINGS TO BE CHANGED BID WITH DAKINS SOAKED GAUZE INTO WOUND. SCDs ON. CONTINUE TO MONITOR.
--- NOTE | 2019-05-25 18:09 | NUR ---
PATIENT ASKING FOR PAIN MEDICATION DUE TO 99/10 PAIN. PATIENT GIVEN 1 MG IV DILAUDID. PT THEN BECOMING MORE NAUSEOUS AND GIVEN IV ZOFRAN, 4 MG. PT NORMALLY TAKES SUBOXONE AT HOME. DISCUSSED WTIH DR. MILLS AND ORDER REC'D TO ALLOW PATIENT'S FAMILY TO BRING THIS IN. AFTER DISCUSSING WITH PHARMACIST, SINCE PATIENT'S SUBOXONE HAS NALOXONE IN IT, THIS WOULD POTENTIALLY MAKE PAIN CONTROL HARDER. HOLDING OFF TONIGHT ON THIS MEDICAITON AND WILL DISCUSS FURTHER WITH DR. MILLS IN AM. PATIENT ALSO STATES, "SOMETIMES THAT MED MAKES ME NAUSEOUS." NGT TO RIGHT NARE DRAINING DARK BILE FLUID. PT'S FRIEND, CHUCKY, IN ROOM. CONTINUE TO MONITOR.
--- NOTE | 2019-05-25 19:30 | NUR ---
RECEIVED REPORT FROM VANESSA FLORES. pt RESTING IN BED. REQUESTED PAIN MEDICATIONS FOR 9/10 PAIN AND REPORTED NASUEA MEDS, GIVEN (SEE MAR). ASESSMENT DONE. DRESSING TO MIDLINE INCISION CDI. NG TUBE TO LIS. BLOOD RETURN NOTED ON CENTRAL LINE LUMENS. CROWE CARE DONE, STAT LOCK APPLIED. NO FURTHER REQUESTS AT THIS ITME. CALL LIGHT WITHIN REACH.
--- NOTE | 2019-05-25 20:20 | NUR ---
pt REFUSED NEB TREATMENT AT THIS TIME. LUNG SOUNDS CLEAR, O2 SAT 95%. RT INFORMED. NO FURTHER REQUESTS AT THIS TIME. CALL LIGHT WITHIN REACH.
--- NOTE | 2019-05-25 21:00 | NUR ---
MEDICATIONS GIVEN (SEE MAR). pt RATED PAIN 6/10 AT THIS TIME. NO REQUESTS AT THIS TIME. CALL LIGHT WITHIN REACH.
--- NOTE | 2019-05-25 22:15 | NUR ---
pt REPORTED 8-9/10 PAIN, PRN MEDICATION GIVEN (SEE MAR). REPORTED NAUSEA WAS "FINE RIGHT NOW" WILL CALL IF IT CHANGES.
--- NOTE | 2019-05-25 22:57 | NUR ---
pt RESTING ON LEFT SIDE WITH EYES CLOSED. RESPIRATIONS REGULAR AND UNLABORED. CALL LIGHT WITHIN REACH.
--- NOTE | 2019-05-25 23:28 | NUR ---
ROUNDED ON pt. RESTING WITH EYES CLOSED, RESPIRATIONS REGULAR AND UNLABORED. CALL LIGHT WITHIN REACH.
--- NOTE | 2019-05-26 00:30 | NUR ---
ASSESSMENT DONE. NG TUBE DRAINING TO LIS. NO CHANGES FROM PRIOR ASSESSMENT. PAIN MEDICATION GIVEN FOR 7/10 PAIN. ASSISTED pt TO REPOSITION. URINE DRAINING. NO FURTHER REQUESTS AT THIS TIME. CALL LIGHT WITHIN REACH.
--- NOTE | 2019-05-26 02:13 | NUR ---
ROUNDED ON pt. RESTING WITH EYES CLOSED, RESPIRATIONS REGULAR AND UNLABORED. CALL LIGHT WITHIN REACH.
--- NOTE | 2019-05-26 03:04 | NUR ---
ROUNDED ON pt. REQUESTED PRN PAIN MEDS FOR 9/10 PAIN AND NAUSEA MEDICATION, GIVEN (SEE MAR). EDUCATED ON IMPORTANCE OF USING CALL LIGHT TO NOTIFY STAFF OF PAIN AND NAUSEA, WILL WAKE pt TO MONITOR PAIN AND MEDICATE PRN. pt AGREEABLE TO PLAN. NO FURTHER REQUESTS AT THIS TIME. CALL LIGHT WITHIN REACH.
--- NOTE | 2019-05-26 04:00 | NUR ---
pt REPORTED 7/10 PAIN, PRN MED GIVEN (SEE MAR). STATED NAUSEA IS "OKAY RIGHT NOW" ASSISTED TO REPOSITION. ASSESSMENT DONE. NO FURTHER REQUESTS AT THIS TIME. CALL LIGHT WITHIN REACH.
--- NOTE | 2019-05-26 05:11 | NUR ---
DRESSING CHANGE COMPLETED PER ORDERS. pt REPORTED INCREASED PAIN WITH DRESSING CHANGE AND MOVEMENT. PRN GIVEN (SEE MAR) FOR 9/10 PAIN. ABD PAD AND PACKING SATURATED WITH SEROSANGUINEOUS DRAINAGE. CURRENT DRESSING CDI. NG TUBE DRAINAGE CHANGED COLOR FROM BROWNISH TO REDDISH ALTERNATING WITH PERIODS OF YELLOWISH DRAINAGE. FLUSHED NG TUBE, RESIDUAL YELLOWISH IN COLOR. NG TO LIS. CALL LIGHT WITHIN REACH
--- NOTE | 2019-05-26 06:25 | NUR ---
pt REPORTED 7/10 PAIN, PRN PAIN MED GIVEN (SEE MAR). NO FURTHER REQUESTS AT THIS TIME. NG TUBE DRAINING BROWN DRAINAGE AT THIS TIME. CALL LIGHT WITHIN REACH. IV ABX INFUSING.
--- NOTE | 2019-05-26 07:16 | OR ---
[facility] [address], [place] [address] Signed DATE OF OPERATION: 05/25/2019 SURGEON: Maria G Mills MD PREOPERATIVE DIAGNOSES: 1. Infected periumbilical intraabdominal mesh. 2. Severe protein-calorie malnutrition. POSTOPERATIVE DIAGNOSES: 1. Infected periumbilical intraabdominal mesh. 2. Severe protein-calorie malnutrition. 3. Jejunal fistula. PROCEDURE: 1. Laparotomy with lysis of adhesions. 2. Explantation of mesh. 3. Small bowel resection with [id number] stapled anastomosis. 4. Omentectomy. 5. Placement of right internal jugular triple-lumen catheter. 6. Physician-directed ultrasound. INPUT AND OUTPUT: In was 1800 mL of crystalloid. Estimated blood loss was 200 mL and urine output was 200 mL. FINDINGS: Kailyn had pus starting at the umbilicus and it traveled laterally towards the left. It appears that there was a piece of jejunum on the edge of the mesh that had resulted in a fistula. INDICATIONS: Kailyn is a 64-year-old female I have known for quite some time. I met her initially with necrotizing ruptured appendicitis. It required an open appendectomy. I also did laparoscopic cholecystectomy. She has long-standing protein-calorie malnutrition. She has been a smoker her whole life as well. She developed an infraumbilical incisional hernia from the open appendectomy. We repaired that with intraabdominal mesh in April 2010. Overall, she has been doing fine. About the last month, she was having some trouble with what thought was pain in her lower abdomen. Maybe more on the left than anywhere else. She had been to her primary care provider. She took some antibiotics and things really did not get all that much better. Eventually, she Electronically Signed By: MARIA G MILLS MD 05/26/19 0716 PATIENT NAME: KAILYN MEJÍA OPERATIVE REPORT DATE OF : 55 REPORT #: [id number] PHYSICIAN: MARIA G MILLS MD PCP: ISMAEL RAMÍREZ DO REPORT IS CONFIDENTIAL AND NOT TO BE RELEASED WITHOUT AUTHORIZATION [facility] [address], [place] [address] Signed developed swelling and erythema and warmth of the periumbilical skin. She ended up in the emergency room last night. She had a fever with white count of 9.[address] scan showed a 10 x 12 x 1.5 cm fluid collection between the mesh and the anterior abdominal wall. Of course, there were bubbles in that fluid. We admitted her overnight and hydrated her, started on IV antibiotics. This morning, I met with Kailyn and we reviewed the above findings in detail. She did tell me on this occasion that she wants to be a DNR/DNI. She wants no heroic measures. She wants no prolonged intubation or ventilation. She declined any enteral nutrition. She did accept central venous catheter for parenteral nutrition. She also wanted to proceed with surgery. I explained to her that more than likely she had a piece of small intestine with the fistula generating the abscess. We would utilize the same vertical periumbilical incision and explant the mesh and repair any small bowel if needed. We also planned to place her central venous catheter. She understands the nature of the surgery along with the expected intraop and postop course. We did review the risks including, but not limited to bleeding, infection, scarring, change in contour of the skin, damage to bowel, intraabdominal infection, and recurrent incisional hernia as well as other unforeseen comorbidities. There is also risk to placing her central venous catheter including bleeding, infection, scarring, change in contour of the skin, and pneumothorax requiring chest tube placement. She had expressed understanding and wished to proceed. PROCEDURE NOTE: Kailyn was taken into our operating room and placed in the supine position under general endotracheal tube anesthesia. She was already on preoperative antibiotics and subcutaneous heparin. SCDs were utilized. A Murry catheter was inserted with return of clear yellow urine. She was then prepped and draped in usual sterile fashion. We utilized her previous periumbilical midline incision and we took deep wound cultures at that time. The wound was irrigated and suctioned out. It took us a few minutes with the help of the cautery to work circumferentially in all directions across the top of the mesh and separate the abdominal wall from the mesh. We found the top of the mesh just below the xiphoid process. We were able to follow that around both sides as well as inferiorly midway between the umbilicus and the pubic bone. Eventually, the entire mesh was free and explanted completely. No mesh was left behind. We found that her abscess cavity tracked laterally after the edge of the mesh and that is where we found a piece of jejunum adherent to the edge of the mesh. About 4 cm of that jejunum was quite indurated and inflamed. We went ahead and resected that short segment back to healthy bowel. The proximal and distal part of that section was divided with the HEIDY stapler and that piece of jejunum was passed off to the pathology department. We brought the jejunum back together [id number] with interrupted silk sutures. We then used our 75 mm GI stapler to bring the 2 pieces of bowel together. The ends of the bowel were then closed and divided with the help of the TA-60 stapler. This gave anastomosis well over 2.54 cm in length. We added some additional silk sutures on the anterior staple line to give it some strength as well. There was no mesenteric rent to close. After this, we Electronically Signed By: MARIA G MILLS MD 05/26/19 0716 PATIENT NAME: KAILYN MEJÍA OPERATIVE REPORT DATE OF : 55 REPORT #: [id number] PHYSICIAN: MARIA G MILLS MD PCP: ISMAEL RAMÍREZ DO REPORT IS CONFIDENTIAL AND NOT TO BE RELEASED WITHOUT AUTHORIZATION [facility] [address], [place] [address] Signed did spend time to lyse all the adhesions, we started with the cecum and worked our way back along the terminal ileum all the way back to the ligament of Treitz. We did take some time to free up the right colon and the transverse colon as well. In addition, the omentum had reacted significantly. It was quite thick and indurated, very foul smelling. Consequently, we went ahead and resected the omentum with the help of Pean clamps and 0 Vicryl ties and several small clips. We also freed up transverse colon from the edge of the liver. After this, all the colon and all the small bowel was completely free. I could easily see and palpate the NG tube in her stomach. We then irrigated the abdomen with copious amounts of warm antibiotic saline solution until clear. We brought some of the perineum back up against the abdominal wall near the edge of the incision and we held that in place with a running 2-0 PDS suture. After this, the midline fascia was closed with multiple interrupted [id number] and simple #1 PDS sutures. The wound was irrigated and suctioned out until clear. I closed the dermis above and below the area of the umbilicus with interrupted 3-0 subcuticular Monocryl sutures. We left about 4 cm incision open right at the level of the umbilicus where she had the most induration and infection. We then closed the skin edges above and below the umbilicus with the help of the katt and again we left about 4 cm of the skin open right around the area of the umbilicus. This was then packed with saline-soaked full strength Dakin's gauze. It was covered with dry gauze and tape. After this, our bilateral tap block was placed by our nurse print and pattern designer. In the meantime, I had gone out, completely re-scrubbed and re-gowned. Kailyn was then placed into the Trendelenburg position and her entire neck and chest wall was prepped and draped in the usual sterile fashion. We used the ultrasound to locate her right internal jugular vein and carotid artery. We could easily watch our needle pass through the skin and into the vein itself. We had good withdrawal with dark nonpulsatile venous blood. The wire was able to feed without any resistance whatsoever. The tract was dilated without resistance and the dilator traveled and curved in the appropriate direction. The triple-lumen catheter was inserted up to almost 14 cm. It was held in place at the level of the skin with a silk suture. Each port was able to draw and flush quite readily. The hub was then held onto the side of her neck with interrupted silk sutures. Dry plastic occlusive dressing was applied per nursing staff. After this, Kailyn was weaned from anesthesia, extubated in the OR, and taken to the ICU in stable condition. In the meantime, we have received our portable chest x-ray and it looks like the line is in good position without any evidence of a pneumothorax. In addition, Kailyn did give me permission to call her friend. We did talk over the telephone. I reviewed all this with her in detail. Maria G Mills MD Electronically Signed By: MARIA G MILLS MD 05/26/19 0716 PATIENT NAME: KAILYN MEJÍA OPERATIVE REPORT DATE OF : 55 REPORT #: [id number] PHYSICIAN: MARIA G MILLS MD PCP: ISMAEL RAMÍREZ DO REPORT IS CONFIDENTIAL AND NOT TO BE RELEASED WITHOUT AUTHORIZATION [address] [place], [place] [address] Signed ALB/MODL /[id number] cc: MD Ismael Fang DO Copies: MARIA G MILLS MD, ARIAN DO ~ Electronically Signed By: MARIA G MILLS MD 05/26/19 0716 PATIENT NAME: KAILYN MEJÍA OPERATIVE REPORT DATE OF : 55 REPORT #: [id number] PHYSICIAN: MARIA G MILLS MD PCP: ISMAEL RAMÍREZ DO REPORT IS CONFIDENTIAL AND NOT TO BE RELEASED WITHOUT AUTHORIZATION
--- NOTE | 2019-05-26 08:18 | NUR ---
PATIENT RESTING IN BED, AWAKE, WATCHING TV UPON INITIAL ASSESSMENT. PT NOTED TO BE MOANING/GRIMACING SOME. PT STATES HER PAIN IS A 7/10 AT THIS TIME AND GOING UP IN SEVERITY. PT STATES HER PAIN IS IN HER ABDOMEN. TPN CONTINUES AT 84 ML/HR AT THIS TIME. ASSESSMENT COMPLETE. SCDs ON. CROWE DRAINING YELLOW URINE. CONTINUE TO MONITOR. CA GLUCONATE TO BE GIVEN PER DR. MILLS.
--- NOTE | 2019-05-26 09:28 | NUR ---
PATIENT RESTING IN BED AND STATES HER PAIN WAS ACTUALLY SOMEWHAT RELIEVED BY THE LAST DOSE OF PAIN MEDICATION SHE WAS GIVEN, AND THAT SHE ACTUALLY WAS ABLE TO SLEEP FOR A SHORT PERIOD OF TIME. DENIES FURTHER NEEDS. PHYS THERAPIST IN ROOM AND MAKES PLAN TO COME BACK AROUND 1130 TO HELP PATIENT OUT OF BED AND DO HER EVAL. PT AGREEABLE TO PLAN OF CARE. CONTINUE TO MONITOR.
--- NOTE | 2019-05-26 11:57 | NUR ---
PATIENT UP TO CHAIR WITH PHYS THERAPY. PT TOLERATED WELL, BUT HR UP TO 130s WHILE STANDING. PT APPEARS VERY PAINFUL. PT AGREEABLE TO STAY IN CHAIR FOR LONG SHE CAN TOLERATE. LAST PAIN MEDICATION GIVEN AROUND 1030. TPN, IV ABX CONTINUE. CROWE DRAINING YELLOW URINE. NG TUBE RESECURED WITH TAPE, AND STILL PUTTING OUT LIGHT GREEN BILE LIKE MATERIAL. CONTINUE TO MONITOR.
--- NOTE | 2019-05-26 14:32 | NUR ---
PATIENT RESTING IN CHAIR AT THIS TIME. MEDICATED FOR PAIN (SEE EMAR). WHILE RESTING, HR IN THE 110-120s. URINE OUTPUT ADEQUATE FOR THE 4 HR PERIOD. NGT PUTTING OUT DARK GREEN BILE. CONTINUE TO MONITOR CLOSELY. DRESSING CHANGE TO BE DONE ON ABDOMEN WHEN PATIENT GETS BACK INTO BED.
--- NOTE | 2019-05-26 16:22 | NUR ---
PATIENT HELPED BACK INTO BED AND TRANSFERS WITH 1 PERSON VERY WELL. GOWN CHANGED AND PATIENT'S BACK SIDE WIPED DOWN. PT DENIES WANTING HER HAIR BRUSHED AT THIS TIME. MEDICATED FOR PAIN AND DRESSING CHANGE DONE. PT'S ASSESSMENT OTHERWISE UNCHANGED, EXCEPT FOR HR WHICH CONTINUES TO BE ELEVATED THIS AFTERNOON, CURRENTLY 119 WHILE RESTING IN BED. WILL CONTINUE TO MONITOR CLOSELY. PT REMAINS AFEBRILE. URINE OUTPUT REMAINS ADEQUATE FOR HER WEIGHT. LAST BP 115/75. CALL LIGHT WITHIN REACH.
--- NOTE | 2019-05-26 19:08 | NUR ---
PATIENT CONTINUES TO REST IN BED AT THIS TIME. HR TRENDING DOWN TO 104, CURRENTLY 114. REPORT TO NOC SHIFT.
--- NOTE | 2019-05-26 19:40 | NUR ---
RECEIVED REPORT FROM [facility]. pt RESTING IN BED. WHITEBOARD UPDATED. CALL LIGHT ON pt NOW AWAKE. pt REPORTED 9/10 PAIN. PRN PAIN MED GIVEN. NO FURTHER REQUESTS AT THIS TIME. CALL LIGHT WITHIN REACH.
--- NOTE | 2019-05-26 20:25 | NUR ---
VANESSA VILLAFUERTE IN ROOM TO DO CBG.
--- NOTE | 2019-05-26 21:00 | NUR ---
pt REPORTED 9/10 PAIN, STATED "IT WENT DOWN FOR A BIT BUT NOW IT IS BACK UP" MOANING FREQENTLY. CHEEKS RED. NG TUBE FLUSHED. AIR VENT CLEARED. ASSESSMENT DONE. DRESSING CDI. MEDICATIONS GIVEN (SEE MAR). CALL LIGHT WITHIN REACH.
--- NOTE | 2019-05-26 22:17 | NUR ---
IV ABX COMPLETED, SL. pt REPORTING 9/10 PAIN AND REQUESTED NAUSEA MEDICATION GIVEN (SEE MAR). CALL LIGHT WITHIN REACH.
--- NOTE | 2019-05-26 23:14 | NUR ---
ROUNDED ON pt. RESTING WITH EYES CLOSED, RESPIRATIONS REGULAR AND UNLABORED. RATE = 25. CALL LIGHT WITHIN REACH.
--- NOTE | 2019-05-27 00:05 | NUR ---
BLOOD PRESSURE CUFF REPOSITIONED. pt RESTING WITH EYES CLOSED, RESPIRATIONS REGULAR.
--- NOTE | 2019-05-27 00:45 | NUR ---
ASSESSMENT DONE. pt REPORTED 6/10 PAIN, PRN PAIN MED GIVEN (SEE MAR). NO FURTHER REQUESTS AT THIS TIME. CALL LIGHT WITHIN REACH.
--- NOTE | 2019-05-27 01:48 | NUR ---
RESTING WITH EYES CLOSED, RESPIRATIONS REGULAR AND UNLABORED. CALL LIGHT WITHIN REACH.
--- NOTE | 2019-05-27 02:20 | NUR ---
BLOOD SUGAR TAKEN, SS INSULIN ADMINISTERED. pt REPORTED 6/10 PAIN, PRN MEDICATION GIVEN (SEE MAR). NO FURTHER REQUESTS CALL LIGHT WITHIN REACH.
--- NOTE | 2019-05-27 03:30 | NUR ---
ROUNDED ON pt. RESTING WITH EYES CLOSED, RESPIRATIONS REGULAR AND UNLABORED. CALL LIGHT WITHIN REACH.
--- NOTE | 2019-05-27 04:30 | NUR ---
ASSESSMENT DONE. pt REPORTED 6/10 PAIN, PRN MEDICATION GIVEN (SEE MAR). IV ABX HANGING. WOUND DRESSING CHANGE DONE PER ORDERS. SCANT AMOUNT OF RED DRAINAGE ON PACKING. FRESH DRESSING CDI. NO FURTHER REQUESTS AT THIS TIME. CALL LIGHT WITHIN REACH.
--- NOTE | 2019-05-27 05:39 | NUR ---
pt RESTING IN BED, EYES CLOSED RESPS REGULAR. ABX INFUSING (SEE MAR). CALL LIGHT WITHIN REACH.
--- NOTE | 2019-05-27 06:57 | NUR ---
ROUNDED ON pt. RESTING WITH EYES CLOSED, RESPIRATIONS REGULAR AND UNLABORED. CALL LIGHT WITHIN REACH. UPDATED GIVEN TO DR. MILLS.
--- NOTE | 2019-05-27 07:30 | NUR ---
REPORT RECIEVED. PATIENT REQUESTING PAIN MEDICATION. TALKED WITH PATIENT ABOUT POC FOR DAY. NG PATENT TO CHHAYA. CROWE CATH PATENT WITH CLEAR YELLOW URINE NOTED. ABD DRESSING IS INTACT. CVC PATENT.
--- NOTE | 2019-05-27 08:30 | NUR ---
In and spoke with Cintia. She is not feeling well, as barking at the nurses. Discussed she lives with Arleen who recently had surgery. She feels she will be ok to dc to home and they can care for each other. States there is some concern about finances as they have both had surgery. States they are aware of the [facility] and also [facility]. Cintia would like to dc to home when able.
--- NOTE | 2019-05-27 11:00 | NUR ---
MORE TALKATIVE. MOVING WELL IN BED WITH MINIMAL ASSIST. DENEIS NAUSEA. GOOD U/O.
--- NOTE | 2019-05-27 11:01 | NUR ---
DILAUDID 2 MG IV GIVEN FOR PAIN RATES PAIN 8/10. ENC COUGH AND DEEP BREATHING.
--- NOTE | 2019-05-27 12:37 | NUR ---
SITTING UP IN CHAIR. DILAUDID 2 MG IV GIVEN EARLIER FOR PAIN. ASSESSMENT DONE.
--- NOTE | 2019-05-27 13:35 | NUR ---
REMAINS IN CHAIR. NO DISTRESS NOTED.
--- NOTE | 2019-05-27 13:44 | NUR ---
VANESSA MONTIEL REQUESTED I NOT VISIT PT AT THIS TIME-FINALLY RESTING. WILL FOLLOW NEEDED
--- NOTE | 2019-05-27 13:55 | NUR ---
BACK TO BED WITH ASSIST. DILAUDID 2 MG IV GIVEN PATIENT C/O PAIN RATING 9/10.
--- NOTE | 2019-05-27 14:18 | NUR ---
ZOFRAN 4 MG IV GIVEN FOR NAUSEA.
--- NOTE | 2019-05-27 16:30 | NUR ---
ASSESSMENT DONE. NO CHANGES. TPN AND LIPIDS HUNG PER ORDERS.
--- NOTE | 2019-05-27 16:42 | NUR ---
CONTINUES TO REQUEST PAIN MEDICATION Q 1-2 HRS. HAS BEEN RATING PAIN 8-9/10 TODAY.
[2019-05-27] MEDS ORDERED: REMERON15 MG PO (17:26)
[2019-05-27] MEDS ORDERED: ANORO ELLIPTA1 EACH INH (17:27)
[2019-05-27] MEDS ORDERED: K-TAB ER8 MEQ PO (17:30)
[2019-05-27] MEDS ORDERED: FOLIC ACID1 MG PO (17:32)
[2019-05-27] MEDS ORDERED: VOLTAREN100 GM TOP (17:32)
--- NOTE | 2019-05-27 17:33 | NUR ---
DILAUDID 2 MG IV GIVEN FOR PAIN. C/O SLIGHT NAUSEA, NOT MEDICATED DO TO TIME FACTOR.
--- NOTE | 2019-05-27 18:00 | NUR ---
REPOSITIONED, FACE FLUSHED.
--- NOTE | 2019-05-27 19:30 | NUR ---
RECEIVED REPORT FROM DAY SHIFT. pt RESTING IN BED. REPORTED 8/10 PAIN, PRN PAIN MEDICATION GIVEN (SEE MAR). CALL LIGHT WITHIN REACH.
--- NOTE | 2019-05-27 21:00 | NUR ---
ASSESSMENT COMPLETED. DRESSING CHANGE COMPLETED PER ORDERS. MEDICATIONS GIVEN (SEE MAR). pt RESTING IN BED WITH EYES CLOSED, NO REQUESTS AT THIS TIME. CALL LIGHT WITHIN REACH.
--- NOTE | 2019-05-27 22:19 | NUR ---
IV ABX STARTED (SEE MAR). pt REPORTED 7/10 PAIN, PRN MEDICATION GIVEN (SEE MAR). NO FURTHER REQUESTS AT THIS TIME. CALL LIGHT WITHIN REACH.
--- NOTE | 2019-05-27 23:12 | NUR ---
ROUNDED ON pt. RESTING WITH EYES CLOSED, RESPIRATIONS REGULAR AND UNLABORED. CALL LIGHT WITHIN REACH.
--- NOTE | 2019-05-28 00:15 | NUR ---
ASSESSMENT DONE. pt RESTING WITH EYES CLOSED, RESPIRATIONS REGULAR. WOKE BRIEFLY DURING ASSESSMENT, WAS NOT ABLE TO VERBALIZED A NUMBER FOR PAIN BUT DID NOD WHEN ASKED IF SHE WAS DOING OKAY. CALL LIGHT WITHIN REACH.
--- NOTE | 2019-05-28 01:15 | NUR ---
FULL REPORT RECIEVED FROM HARDY MENDEZ. ALL QUESTIONS ANSWERED.
--- NOTE | 2019-05-28 02:29 | NUR ---
PT O2 SAT DROPPED TO 80% ON ROOM AIR, PT ASSESSED FOUND TO BE SLEEPING SLIGHTLY SLUMPED OVER, REPOSITIONED IN BED. O2 SATS QUICKLY RECOVERED TO LOW 90% ON ROOM AIR.
--- NOTE | 2019-05-28 02:45 | NUR ---
pt sleeping soundly, vitals wnl at this time. pt did not wake for blood glucose test, cbg 127, no insulin coverage needed. iv sites are intact, no redness or swelling noted, fluids infuse easily. urine output remanins greater than QS.
--- NOTE | 2019-05-28 03:45 | NUR ---
PT GIVEN 2 MG IV DILAUDID FOR 8/10 ABD AND GENERALIZED PAIN.
--- NOTE | 2019-05-28 04:20 | NUR ---
PT REPOSITIONED IN BED FROM RIGHT SIDE TO LEFT SIDE, SUPPORTED WITH MULTIPLE PILLOWS, PT RUBY TO ASSIST SOME WITH REPOSITIONING.
--- NOTE | 2019-05-28 08:33 | NUR ---
Med Rec completed, pt was alert but in pain.
--- NOTE | 2019-05-28 08:43 | NUR ---
PATIENT AWAKE UPON INITIAL ASSESSMENT, WATCHING TV. PT REQUESTING PAIN MEDICATION AND THIS WAS GIVEN ( SEE EMAR). ASSESSMENT COMPLETE. PT STATES HER PAIN IS A 7/10 IN HER ABDOMEN AND RISING. PT STATES SHE DID HAVE A BETTER NIGHT THAN THE PREVIOUS NIGHT, BUT STILL VERY PAINFUL. LOOSE COUGH NOTED AND PATIENT ENCOURAGED TO SPEND TIME UP TODAY IN CHAIR AND ALSO AMBULATING. PT AGREEABLE. NGT TO RIGHT NARE CONTINUES TO DRAIN LIGHT GREEN FLUID. TPN AT 84 ML/HR. CROWE DRAINING YELLOW URINE, QS. PT HELPED TO REPOSITION SELF IN BED, TURING ONTO RIGHT SIDE. DRESSING CHANGE TO BE DONE AROUND 0900. PT TO TRANSFER TO MEDICAL FLOOR WITHOUT TELEMETRY THIS AM. PT UPDATED ON PLAN OF CARE FOR THE DAY.
--- NOTE | 2019-05-28 10:11 | NUR ---
PATIENT'S DRESSING CHANGED ON ABDOMEN. WOUND CLEANED WITH SOAP AND WATER ,AND THEN RE PACKED WITH DAKINS SOAKED GAUZE, COVERED WITH ABD PAD AND TAPE. PT PAINFUL DURING DRESSING CHANGE BUT GIVEN PAIN MEDICATION PRIOR TO CHANGE. BED BATH GIVEN. PHYS THERAPY DEFERRED UNTIL A LITTLE LATER THIS AM. PT TO TRANSFER TO MEDICAL FLOOR.
--- NOTE | 2019-05-28 10:45 | NUR ---
PT TRANSFERED TO ROOM 116 FROM CCU. REPORT WAS RECEIVED FROM VANESSA FLORES. PT ARRIVED VIA HOSPITAL BED. PT ALERT AND ORIENTED. NG APPLIED TO LIWS, TPN INFUSING TO BROWN IJ PORT. PT ASSESSMENT COMPLETED. CALL LIGHT IN REACH. NO FURTHER NEEDS OR CONCERNS VOICED.
--- NOTE | 2019-05-28 12:00 | NUR ---
Pt. transfered to the floor. Tired, states not feeling that well.
--- NOTE | 2019-05-28 12:19 | NUR ---
PT RESTING ON RIGHT SIDE IN BED, ALERT AND ORIENTED. CALL LIGHT IN REACH. NG TUBE REMAINS TO LIWS. PT DENIES SOB, NAUSEA OR PAIN. PT DENIES NEEDS OR CONCERNS.
--- NOTE | 2019-05-28 12:34 | NUR ---
PT LAYING ON R SIDE, WITH RT FAUSTINO IN GIVING BREATHING TREAMENT. TOLD PT I WOULD COME BACK AGAIN-SHE KNODDED IN AGEEMENT. WILL FOLLOW NEEDED
--- NOTE | 2019-05-28 13:46 | NUR ---
PT RESTING SUPINE IN BED ALERT AND ORIENTED. PT REPORTS 8/10 PAIN, TO ABDOMINAL SURGICAL SITE. PT REQUESTED AND RECEIVED PRN IV DILAUDID 2MG IV -SEE EMAR. CALL LIGHT AND H2O IN REACH. PT DENIES FURTHER NEEDS OR CONCERNS.
--- NOTE | 2019-05-28 13:47 | NUR ---
PATIENT RESTING IN BED. VITAL SIGNS AND I&O DONE. PATIENT COMPLAINS ABOUT PAIN. RN NOTIFIED. CALL LIGHT WITHIN REACH. NO OTHER NEEDS AT THIS TIME
--- NOTE | 2019-05-28 14:00 | NUR ---
PT LAYING IN BED WITH HAND COVERING EYES, I ASKED PT IF SHE NEEDED THE BLINDS CLOSED SHE STATED NO. SHE STATES I AM JUST PREPARING MYSELF TO GET UP THIS HAS BEEN A ROUGH YEAR. ENCOURAGED HER WITH POSITIVE THOUGHTS THAT THIS MAY BE THE TURNING POINT FOR THE YEAR. TOLD PT I WOULD RETURN TOMORROW TO VISIT WITH HER MORE. SHE IS AGREEABLE TO THIS.
--- NOTE | 2019-05-28 16:34 | NUR ---
Pt reports increased 8/10 pain to abdomen. PRN IV analgesic administered per pt request -see emar. Call light and h2o in reach. Pt also reports headache states she gets 2-3 similar feeling headaches per month and that she usually takes a tylenol but that it often doesn't help. Pt agrees to use call light if headcach persists or worsens. Lights off for comfort. pt denies further needs or concerns.
--- NOTE | 2019-05-28 17:15 | NUR ---
PATIENT SITTING UP IN CHAIR. PATIENT TRANSFERRED TO BED. PATIENT USES WALKER. ONE PERSON ASSISTING. VITAL SIGNS AND I&O DONE. CALL LIGHT WITHIN REACH. NO OTHER NEEDS AT THIS TIME
--- NOTE | 2019-05-28 19:06 | NUR ---
pt reports increased 8/10 pain to abdominal surgical site. Pt requested and received prn iv analgesic. Pt also asssited in repositioning onto left side. Call light and h2o in reach. Pt denies further needs or concerns.
--- NOTE | 2019-05-28 20:57 | NUR ---
ASSESSMENT COMPLETE. PT UPDATED ON PLAN OF CARE AND NEED TO COMPLETE DRESSING CHANGE SOON. PT STATES UNDERSTANDING AND AGREEABLE TO THIS. PT EDUCATED TO CALL AND NOTIFY STAFF IF SHE IS IN NEED OF PAIN MEDICATION. PT DENIES NEEDING ANYTHING FOR PAIN AT THIS TIME. CALL LIGHT WITHIN REACH.
--- NOTE | 2019-05-28 21:18 | NUR ---
pt used call light to ask for pain medication, when asked what her pain level was she states, "Its at an 8 and rising". RN Sherie notified and is currently giving pain medication to pt.
--- NOTE | 2019-05-28 21:22 | NUR ---
previous note was written by myself and not lacey.
--- NOTE | 2019-05-28 21:27 | NUR ---
PT ROLLED TO HER RIGHT SIDE FROM HER LEFT SIDE. TOLERATED FAIRLY WELL. PT IS ABLE TO TURN HERSELF. PILLOW PLACED BEHIND BACK ON LEFT SIDE.
--- NOTE | 2019-05-28 21:55 | NUR ---
VS and I&Os complete. Nothing further needed at this time.
--- NOTE | 2019-05-28 22:42 | NUR ---
PT REPORTS HER ABD TO BE "SPASMING" INTERMITTENTLY. PT REPORTS SHE IS OKAY AT THIS TIME. WANTS MORE PAIN MEDICATION BEFORE DRESSING CHANGE.
--- NOTE | 2019-05-28 23:10 | NUR ---
PT STATES HER ABD TO CONTINUE TO HAVE INTERMITTENT CRAMPING, PT REPORTS SHE HAS NOT PASSED GAS YET BUT THINKS SHE MIGHT SOON. STATES SHE FEELS LIKE HER ABD IS "MOVING". PT ASSISTED WITH MOVING TO HER LEFT SIDE AND PILLOW TUCKED UNDER HER RIGHT SIDE. PT'S BROWN AND WHITE PORTS BOTH STOPPED AND FLUSHED WITH TURBULENT 20 MLS OF SALINE. BOTH DRAW BLOOD BACK EASILY. PT'S BLUE PORT IS NOT IN USE CURRENTLY AND IS NOT FLUSHING OR DRAWING BLOOD BACK. CHARGE NURSE NOTIFIED AND ATTEMPTED TO FLUSH THIS PORT WELL. CONTINUES NOT TO FLUSH. WILL NOTIFY MD IN THE AM.
--- NOTE | 2019-05-28 23:53 | NUR ---
PT'S DRESSING CHANGE COMPLETED TO HER ABD. PT HAS AN APPROXIMATELY 6 INCH INCISION WITH SHIRA ON THE TOP AND BOTTOM AND AN OPEN AREA IN THE MIDDLE THAT IS APPROXIMATELY 2 INCHES WIDE, 2 INCHES IN LENGTH, AND 1 INCH DEEP. PT'S OPEN AREA CLEANSED WITH SOAP AND WATER. DAKINS SOAKED GAUZE WAS THEN PACKED INTO THE WOUND. THE TISSUE INSIDE WAS PINK WITH NO REDNESS NOTED. AN ABD PAD WAS PLACED OVER THE INCISION AND TAPED AROUND THE EDGES. ASSISTED BY SHAKEEL AGOSTO RN.
--- NOTE | 2019-05-29 00:14 | NUR ---
PT RESTING IN BED WITH EYES CLOSED. RESP 16 EVEN AND UNLABORED. OXYGEN SAT 97% ON RA. BED RAILS UP, CALL LIGHT WITHIN REACH.
--- NOTE | 2019-05-29 01:05 | NUR ---
PT AWAKE IN ROOM. PT STATES ABD PAIN IS 8/10. RN WILL PROVIDED PRN PAIN MED. TPN INFUSING PER ORDER. IV CDI, WNL, FLUSHED WELL. NO OTHER NEEDS, CALL LIGHT IN REACH.
--- NOTE | 2019-05-29 01:29 | NUR ---
PT PAIN 8/10 IN ABD AND BACK. PRN PAIN MED PROVIDED. TPN AND IV FLUIDS INFUSING PER ORDER. NO OTHER NEEDS, CALL LIGHT IN REACH.
--- NOTE | 2019-05-29 04:17 | NUR ---
PT STATES PAIN IS 8/10. PRN PAIN MED PROVIDED. SCHEDULED IV MED PROVIDED. ASSESSMENT COMPLETED. PT REPOSITIONED. NG, CENTRAL LINE, CPOX, TPN, SCDs ON. NO OTHER NEEDS, CALL LIGHT INREACH.
--- NOTE | 2019-05-29 05:54 | NUR ---
PT RESTING IN BED, EYES CLOSED. WAKES WHEN RN IN ROOM. SCHEDULED MED PROVIDED. NO OTHER NEEDS, CALL LIGHT IN REACH.
--- NOTE | 2019-05-29 06:09 | NUR ---
PT STATES PAIN IS 7/10 IN ABD. PRN PAIN MED PROVIDED. CPOX 97, RA, 97P, SKIN WPD. NO OTHER NEEDS. CALL LIGHT IN REACH.
--- NOTE | 2019-05-29 07:28 | NUR ---
0655: Report received from Iwona MENDEZ. Pt sleeping at this time with her call rahman within reach. NGT tube to suction, fox to gravity, tpn running to the central line, scd's on and running, cpox is on.
--- NOTE | 2019-05-29 08:39 | NUR ---
PT RESTING IN HER BED WITH A FLAT AFFECT. SHE STATES SHE IS HAVING ABD/BACK PAIN RATED AT AN 8/10 AT THIS TIME, SEE EMAR. PT STATES LITTLE ELSE AT THIS TIME. SEE ASSESSMENT.
--- NOTE | 2019-05-29 09:04 | NUR ---
ABD DRESSING CHANGED ORDERED. THE MIDLINE ABD INCISION MEASURES 17 CM LONG WITH SHIRA IN PLACE AT THE TOP AND BOTTOM OF THE INCISION. THE MIDDLE OF THE INCISION IS OPEN AND MEASURES 4 CM LONG, 2.25 CM WIDE AND 1.5 CM DEEP. THE OPEN AREA HAS NOTED PINK SKIN BUDS WITH A SCANT AMOUNT OF SLOUGH IN THE WOUND BED. THE SURROUNDING TISSUE ALL APPEARS HEALTHY.
--- NOTE | 2019-05-29 10:08 | NUR ---
PT AWOKE WHILE I WAS IN HER ROOM AND SHE ASKED FOR ADDITIONAL PAIN MEIDCATION STATING HER PAIN IS NOW A 7/10.
--- NOTE | 2019-05-29 10:51 | NUR ---
Pt now sitting up in her chair watching tv. She states her pain level is better at this time. She states she did feel "a little dizzy" when she stood up but that is now gone. The pt did have the EGG CASER doing a SBA when she got up.
--- NOTE | 2019-05-29 12:22 | NUR ---
TPN DAY 5 TODAY. REMAINS NPO WITH NGT SUCTIONING GREEN BILIOUS FLUID. GLUCOSE IMPROVED. POC GLUCOSE TODAY 135, 127. MG+ STILL A LITTLE LOW, NA+ LOW TODAY. TPN CURRENTLY PROVIDING AN AVERAGE OF 1279 CALORIES AND 75 GRAMS OF PROTEIN PER 24 HOURS. NO CHANGES RECOMMENDED AT THIS TIME. AWAIT GI FUNCTION FOR ORAL DIET INITIATION.
--- NOTE | 2019-05-29 12:42 | NUR ---
PT RESTING IN HER BED AND SHE STATES "ANOTHER NURSE" JUST RECENTLY MEDICATED HER FOR PAIN. IT APPEARS SHE RECIEVED 2 MG OF IV DILAUDID. SHE NOW RATES HER PAIN AT A 6 WHICH SHE STATES IS COMING DOWN. NG TUBE SECURED TO A SUCTION SECURE DEVICE TO HER NOSE AND THE PINK TAPE REMOVED. NGT CONTINES FUNCTIONING AT LOW INTMIT SUCTION AND WAS FLUSED WITHOUT DIFFICULTY. TPN AND IV ABX CONTINUE INFUSING. CROWE DRAINING AND SCD'S ARE ON AND RUNNING. CALL CHAVEZ WITHIN REACH. WILL CONTINUE TO MONITOR.
--- NOTE | 2019-05-29 13:35 | NUR ---
Pt sleeping at this time.
--- NOTE | 2019-05-29 13:55 | NUR ---
PT LAYING ON L SIDE-NG TUBE AND O2 NC ON PT. SHE APPEARS TO BE RESTING WITH PILLOWS AROUND HER AND NO COVERS. PT STATED SHE IS WARM, AND ALLOWED ME TO PRAY FOR HER. SHE HELD MY HAND AND KNODDED IN AGREEMENT THAT SHE UNDERSTOOD WHEN I TOLD HER I WOULD RETURN. WILL FOLLOW NEEDED
--- NOTE | 2019-05-29 14:47 | NUR ---
In to speak with Cintia. She is resting in bed. States she was just medicated and not feeling well. Cont. with GÉNESIS and dominique in place. Cont. to plan to dc to home with Arleen upon dc.
--- NOTE | 2019-05-29 14:49 | NUR ---
Pt was taken for a walk after instructing her on the importance of moving post op. With 2 person assist and the use of her walker she walked 1/3 of a lap and tolerated fair. She states she has some pain and some nausea following the walk. She is now back to her chair with her feet elevated, back on cpox and ng to suction. Will continue to monitor.
--- NOTE | 2019-05-29 15:05 | NUR ---
PT RESTING IN HER CHAIR WATCHING TV AND STATES HER NAUEA IS NOW GONE.
--- NOTE | 2019-05-29 16:18 | NUR ---
PT STATES HER ABD HAS INCREASED TO AN 8/10, PT MEDICATED ORDERED. SEE EMAR.
--- NOTE | 2019-05-29 16:56 | NUR ---
PT HELPED BACK TO BED PER HER REQUEST. SHE STATES THAT THE PAIN MEDICATION DID HELP SOME AND NOW RATES HER PAIN AT A 7 AND "GOING DOWN". SCD'S REPLACED, CALL CHAVEZ WITHIN REACH.
--- NOTE | 2019-05-29 17:22 | NUR ---
Pt sleeping, sat 97% on room air.
--- NOTE | 2019-05-29 17:53 | PATH ---
[facility] [address], [place] [address] Signed SPECIMEN(S): A HERNIA SAC, GROSS ONLY SPECIMEN(S): B JEJUNUM SPECIMEN(S): C ADDITIONAL JEJUNUM SPECIMEN SOURCE: A. HERNIA SAC, GROSS ONLY B. JEJUNUM C. ADDITIONAL JEJUNUM CLINICAL HISTORY: Abdominal wall incarcerated hernia with abscess. Adhesion of infected mesh to bowel. FINAL PATHOLOGIC DIAGNOSIS: A. Explanted Composix mesh, excision: - Omentum with chronic inflammation and fragment of ulcer tissue. - Surgical mesh. - Negative for malignancy. B. Jejunum, resection: - Ulcerated small bowel with transmural defect and associated inflammation and reactive changes. - Serosal fibrous adhesions and acute serositis. - Viable surgical margins. - Negative for dysplasia or malignancy. C. Jejunum, additional, resection: - Anastomosed segments of small bowel with fibrous adhesions and acute serositis. - Viable surgical margins. - Negative for dysplasia or malignancy. NAL:caw:C2NR MICROSCOPIC EXAMINATION: Histologic sections of all submitted blocks are examined by light microscopy. These findings, together with the gross examination, support the pathologic diagnosis. GROSS DESCRIPTION: Three specimens are received in three containers, labeled "WP." A. The specimen, labeled "WP, A and explanted Composix mesh on the requisition," is received in formalin and consists of a 17 x 13 x 0.6 cm rubbery to firm flat mccauley irregular synthetic mesh with a PATIENT NAME: KAILYN MEJÍA POOJA PATHOLOGY DATE OF : 55 REPORT #: [id number] PHYSICIAN: GABRIELA MAHAJAN PCP: ABY RAMÍREZ DO REPORT IS CONFIDENTIAL AND NOT TO BE RELEASED WITHOUT AUTHORIZATION [facility] [address], [place] [address] Signed minimal amount of attached fibrofatty tissue. No masses are identified. Kiln Maintenance sections including a section of the mesh are submitted in cassette A1. B. The specimen, labeled "WP, B and jejunum on the requisition," is received in formalin and consists of a 6 x 3.5 cm segment of small bowel with a minimal amount of attached mesenteric fat. Both surgical margins are secured by a staple line. The bowel wall demonstrates a 2.1 x 1.6 cm transmural defect that is located 1.8 cm from the closest surgical margin. The serosa surrounding the defect is dark red and ragged with a miller exudate. Cysts the mucosa surrounding the defect is dark red and ragged. The mucosa is otherwise miller with the normal intestinal. The small bowel wall varies from 0.6-1.1 cm. The mesenteric fat is grossly unremarkable. Kiln Maintenance sections are submitted as follows: (B1-B2) Surgical margins (B3) Section of bowel wall adjacent to defects (B4) Random sections of small bowel. C. The specimen, labeled "WP C, and additional jejunum on the requisition," is received in formalin and consists of two segments of small bowel that measure 2.1 and 2.3 m that show focal anastomosis to one another along one side. One margin of each segment is open while the opposite is secured by a staple line. The secured surgical margin of each is marked with black ink. The serosa of each piece is miller and smooth. The mucosa of each piece is miller with the normal intestinal folds and no masses. Kiln Maintenance sections are submitted as follows: (C1-C2) Surgical margins of both segments (separate cassettes) (C3) Kiln Maintenance section of each segment of small bowel. SS (under the direct supervision of a pathologist) The Gross Description was prepared using a voice recognition system. The report was reviewed for accuracy; however, sound-alike word errors, addition and/or deletions may occur. If there is any question about this report, please contact Client Services. PERFORMING LABORATORY: The technical component was performed by [facility], [address] [place] [id number] (Metrology Technician: Divya Gonzalez MD; CLIA# [id number]). [facility], [address] [address] (Metrology Technician: Malcolm Mello MD; CLIA# PATIENT NAME: KAILYN MEJÍA PATHOLOGY DATE OF : 55 REPORT #: [id number] PHYSICIAN: GABRIELA MAHAJAN PCP: ABY RAMÍREZ DO REPORT IS CONFIDENTIAL AND NOT TO BE RELEASED WITHOUT AUTHORIZATION [facility] [address], [place] [address] Signed [id number]). Diagnostician: Patrica Henry MD Pathologist Electronically Signed 05/29/2019 Copies: ~ PATIENT NAME: KAILYN MEJÍA PATHOLOGY DATE OF : 55 REPORT #: [id number] PHYSICIAN: GABRIELA PATHOLOGY PCP: ABY RMAÍREZ DO REPORT IS CONFIDENTIAL AND NOT TO BE RELEASED WITHOUT AUTHORIZATION
--- NOTE | 2019-05-29 19:15 | NUR ---
PT RESTING IN BED, EYES CLOSED. SHIFT REPORT RECIEVED FROM TIFFANIE MENDEZ. RR 16, EVEN, UNLABORED. CALL LIGHT IN REACH.
--- NOTE | 2019-05-29 20:38 | NUR ---
PT ABD PAIN 12/22. PRN PAIN MEDICATION PROVIDED. LEFT FA IV CDI, WNL, FLUSHED WELL. NO OTHER NEEDS AT THIS TIME. CALL LIGHT IN REACH.
--- NOTE | 2019-05-29 21:20 | NUR ---
VITALS I&OS AND BLOOD SUGAR DONE AND CHARTED. BEDSIDE TABLE AND CALL LIGHT IN REACH. PT NEEDS NOTHING MORE AT THIS TIME.
--- NOTE | 2019-05-29 22:06 | NUR ---
ASSESSMENT COMPLETED. BANDAGING CHANGED, SURGERY SITE WNL. SCHEDULED MEDS PROVIDED. PRN PAIN MED PROVIDED FOR 9/10 ABD PAIN. CPOX 98, RA. TPN, LIPIDS AND IV MEDS INFUSING PER ORDER. CENTRAL LINES EXCEPT BLUE LINE HAVE GOOD BLOOD RETURN AND FLUSH. BLUE LINE DOES NOT DRAW BACK OR FLUSH. LEFT FA IV CDI, WNL, FLUSHED WELL. NG INTERMITTENT WITH GREEN FLUID. NO OTHER NEEDS AT THIS TIME.
--- NOTE | 2019-05-30 00:52 | NUR ---
PT CALLS TO REPORT PAIN. ABD PAIN 12/22. PRN PAIN MEDICATION PROVIDED. NO OTHER NEEDS. CALL LIGHT IN REACH.
--- NOTE | 2019-05-30 01:56 | NUR ---
BLOOD SUGAR DONE AND CHARTED. PT NEEDS NOTHING AT THIS TIME.
--- NOTE | 2019-05-30 02:39 | NUR ---
PT RESTING IN BED, EYES CLOSED. RR 18, EVEN, UNLABORED. CALL LIGHT IN REACH.
--- NOTE | 2019-05-30 03:51 | NUR ---
ASSESSMENT COMPLETED. CROWE WNL. WHITE LUMEN CENTRAL LINE HEPARIN LOCKED. SCHEDULED MED PROVIDED. ABD PAIN 11/21, PRN PAIN MED PROVIDED. PT ASKED TO TAKE A BREAK FROM SCDs, REMOVED. PT REPOSITIONED. NO OTHER NEEDS AT THIS TIME. CALL LIGHT IN REACH.
--- NOTE | 2019-05-30 05:44 | NUR ---
VS AND I&O'S COLLECTED. PUMPS CLEARED. PT REPORTING INCREASED PAIN, PRIMARY RN JASON NOTIFED. CALL LIGHT IN REACH.
--- NOTE | 2019-05-30 06:27 | NUR ---
SCHEDULED MED PROVIDED. ABD PAIN 01/22. PT MOVED TO CHAIR AND PRN PAIN MED PROVIDED. CPOX 93%, RA. NO OTHER NEEDS, CALL LIGHT IN REACH.
--- NOTE | 2019-05-30 06:45 | NUR ---
PT SLEPT OFF AND ON THIS SHIFT PAIN MANAGED WITH PRN PAIN MED ENOUGH TO ALLOW FOR SHORT PERIODS OF SLEEP. PT CONTINUES TO COMPLAIN OF CRAMPING IN ABD. CENTRAL LINE FLUSHED AND GOOD BLOOD RETURN IN ALL BUT BLUE LUMEN. BLUE LUMEN CONTINUES TO NOT FLUSH OR DRAW. LEFT HAND IV CDI, WNL, FLUSHED WELL. CROWE WNL, PT TOLERATED WELL. NG OUTPUT IS GREEN ON INTERMITENT SUCTION, PT TOLERATES WELL. CPOX TRENDING IN MID 90S. ABD DRESSING CHANGED, INCISION APPEARS WNL. CBG HAS NOT REQUIRED COVERAGE THIS SHIFT. PT TOLERATING IV FLUIDS AND MEDS WELL. VSS, UO SUFFICIENT. A&OX4, GCS 15.
--- NOTE | 2019-05-30 07:00 | NUR ---
BEDSIDE HANDOFF REPORT RECEIVED FROM OPERATIONS LEAD RN. PT RESTING IN CHAIR. TPN INFUSING. PT DENIES OTHER NEEDS AT THIS TIME.
--- NOTE | 2019-05-30 08:00 | NUR ---
PT ASSISTED TO BED BY NURSE AIDE. PT COMPLAINT OF PAIN 8-9/10 TO ABD, GIVEN 1 MG IV DILAUDID. NG TUBE DISCONNECTED FROM WALL SUCTION AND PLACED TO CROWE GRAVITY BAG. PT ON ROOM AIR, CONTINUOUS PULSE OX IN PLACE, LUNG SOUNDS CLEAR. PT NPO, BOWEL TONES HYPOACTIVE, PT DENIES FLATUS. CMS INTACT, WITHOUT EDEMA. TPN INFUSING TO CENTRAL LINE, IV TO LEFT ARM SL. DISCUSSED PLAN OF CARE FOR THE DAY, PT REQUESTING TO REST AT THIS TIME, DENIES OTHER NEEDS.
--- NOTE | 2019-05-30 08:08 | NUR ---
PATIENT WAS UP IN THE CHAIR. SHE REQUESTED PAIN MEDS. NURSE WAS INFORMED. PATIENT WANTED TO GO BACK TO BED. WALKED BACK TO BED WITH WALKER. CALL LIGHT WITHIN REACH. NO FURTHER NEEDS AT THIS TIME.
--- NOTE | 2019-05-30 11:00 | NUR ---
PT GIVEN 1.75 MG IV DILAUDID FOR PAIN 7-8/10 AND FOR DRESSING CHANGED. PT DENIES OTHER NEEDS AT THIS TIME.
--- NOTE | 2019-05-30 11:30 | NUR ---
DRESSING CHANGED TO ABD PER ORDER. WOUND CLEANSED WITH WOUND CLEANSER, PACKED WITH SALINE SOAKED GAUZE AND COVERED WITH DRY GAUZE. PT DENIES OTHER NEEDS AT THIS TIME.
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
--- NOTE | 2019-05-30 13:32 | NUR ---
PT COMPLAINT OF PAIN 01/22 TO ABD, BACK, NECK. GIVEN 2MG IV DILAUDID PER ORDER. CALL PLACED TO DR. MILLS, MESSAGE LEFT TO RETURN CALL. PT BLOOD GLUCOSE ASSESSED, WNL, SS HUMULIN HELD. PT DENIES OTHER NEEDS AT THIS TIME.
--- NOTE | 2019-05-30 13:52 | NUR ---
DR. MILLS RETURNED CALL, DISCUSSED PT UNCONTROLLED PAIN, TELEPHONE ORDER FOR TORADOL 15MG IV Q8PRN FOR PAIN AND OK TO GIVE TYLENOL SUPPOSITORY FOR PAIN.
--- NOTE | 2019-05-30 16:11 | NUR ---
TPN STARTED PER ORDER, SECOND RN VERIFICATION WITH NACHO MENDEZ. IV CEFEPIME INFUSING. PT ASSISTED BACK TO BED FROM CHAIR, SBA. PT DENIES OTHER NEEDS AT THIS TIME.
--- NOTE | 2019-05-30 18:16 | NUR ---
PT CONTINUED TO HAVE SIGNIFICANT PAIN, TORADOL ADDED AND SEEMS TO HELP. PT ON ROOM AIR, CONTINUOUS PULSE OX IN PLACE. NG TUBE TO GRAVITY CROWE BAG, WITHOUT NAUSEA, BOWEL TONES HYPOACTIVE. SALINE GAUZE DRESSING CHANGE COMPLETED. PT SBA, WORKED WITH P.T. NPO, TPN INFUSING. MAGNESIUM, POTASSIUM AND CALCIUM GLUCONATE GIVEN.
--- NOTE | 2019-05-30 19:38 | NUR ---
C/O ABD PAIN 8/10 ABD AND GENERALIZED PAIN. MEDICATED WITH 2MG IV DILAUDID
--- NOTE | 2019-05-30 22:16 | NUR ---
MEDICATED WITH TORADOL 15MG IV AND DILAUDID 1MG IV C/O ABD CRAMPING, 12/22.
--- NOTE | 2019-05-31 00:20 | NUR ---
resting, hob elevated, ngt in place r nare, to gravity suction. no drainage, flusehd earlier, patent. no c/o n/v. R neck CL patent,infusing TPN, no c/o adverse reaction to IVabx. on room air, resp even, unlabored. abd dresingintact. scds off about 1/2 hr ago at her requests. f/cpatent. calllight and fluids at bedside,CPOX in place, sats 99% roomair.
--- NOTE | 2019-05-31 01:30 | NUR ---
c/o 12/22 abd pain, medicated with Dilaudid 2mg IV. Will do 0200 accucjeck scheduled as per pts requests.
--- NOTE | 2019-05-31 04:03 | NUR ---
RESTING, EYES CLOSED, NO FURTHER C/O PAIN OR N/V, REPOSITION SELF IN BED
--- NOTE | 2019-05-31 04:28 | NUR ---
pt c/o 12/22 abd crampingand incisional area pain, medicated with Dilaudid 2mg IV , npo, ngt to gravity, f/c patent. CL r neck patent, ivf infusing, pt awakes easily, cpox in place, sats 99%, p 91 r16
--- NOTE | 2019-05-31 06:10 | NUR ---
Pt has been medicated with Dilaudid 2mg IV every 2hrs, and Toradol X1, with fair to good pain control. NGT R nare to gravity suction, no drainage present. R neck CL patent, IVF TPN infusing w/o problems. SL patent. Abd midline incision w katt in place, dressing changed as per orders. Denies passing gas. F/C patent. Pt repositions self in bed. Call light at bedside. Coop with procedures.
--- NOTE | 2019-05-31 06:34 | NUR ---
VITALS AND I&OS DONE AND CHARTED. GARBAGES EMPTIED AND ROOM CLEANED UP. BEDSIDE TABLE AND CALL LIGHT IN REACH.
--- NOTE | 2019-05-31 06:36 | NUR ---
c/o abd cramping and incisional pain. Medicated with Toradol 15mg IV and Dilaudid 1mg IV. Awakem NGT paptem no drainage, still NPO, TPN infusing.
--- NOTE | 2019-05-31 07:10 | NUR ---
BEDSIDE HANDOFF REPORT RECEIVED FROM DECKHAND RN. PT RESTING IN BED. FLAGYL INFUSION COMPLETED.PT RATIONG PAIN 10/22 AT THIS TIME. PT DENIES NEEDS.
--- NOTE | 2019-05-31 08:15 | NUR ---
patient up to chair with fww one person assist. Full bed bath, oral care, skin care, maeve care, linen change done. call button in reach. SCD's on. no other needs at this time.
--- NOTE | 2019-05-31 08:20 | NUR ---
PT RESTING IN BED. PT RATING PAIN 7/10, REQUESTING DILAUDID, 2MG IV DILAUDID GIVEN. PT ON ROOM AIR, LUNG SOUNDS CLEAR, CONTINUOUS PULSE OX IN PLACE. BOWEL TONES ACTIVE, NG TUBE TO GRAVITY DRAIN, NO DRAINAGE. PT WITH RIGHT IJ CENTRAL LINE, TPN INFUSING TO BROWN PORT, BLUE PORT CONTINUES TO BE OCCLUDED, WHITE PORT WITH BLOOD RETURN, MEDICATIONS GIVEN AND WHITE PORT HEPARIN LOCKED. CMS INTACT, WITHOUT EDEMA. MIDLINE INCISION WITH GAUZE PACKING, SHIRA IN PLACE. MEDICATIONS GIVEN BYNURSING STUDENT WITH SUPERVISION. TURBO ELECTRIC OPERATOR AND SALVAGER HELPER PROVIDING BED BATH. PT DENIES OTHER NEEDS AT THIS TIME. DISCUSSED PT CONDITION WITH DR. MILLS, ORDER TO REMOVE NG TUBE, REMOVE CROWE AND CONTINUE WITH TPN.
--- NOTE | 2019-05-31 09:40 | NUR ---
SPOKE WITH PATIENT IN ROOM. PATIENT IS UP IN CHAIR. PATIENT STATES SHE PLANS TO GO HOME WITH HER FRIEND CHUCKY AT DISCHARGE. PATIENT STATES DR CAME IN TODAY AND STATED THEY WOULD REMOVE THE NGT AND CROWE. PATIENT STATES SHE IS LOOKING FORWARD TO NGT BEING OUT. PATIENT STATES SHE FEELS SAFE TO DISCHARGE HOME WITH HER FRIEND. DENIES QUESTIONS AT THIS TIME.
--- NOTE | 2019-05-31 10:20 | NUR ---
NG TUBE AND CROWE CATH REMOVED BY SAFETY TEACHER WITHOUT COMPLICATION WITH SUPERVISION AT 1000. PT RERQUESTINGPAIN MEDICATION, GIVEN 2 MG IV DILAUDID, IV CEFEPIME INFUSING. PLAN FOR DRESSING CHANGE IN 30 MINUTES. PT SITTING IN CHAIR AND IS COMFORTABLE AT THIS TIME.
--- NOTE | 2019-05-31 11:00 | NUR ---
DRESSING CHANGE COMPLETED TO ABD WOUND, PACKED WITH CLEAN SALINE GAUZE, COVERED WITH DRY GAUZE AND SECURED WITH TAPE. PT TOLERATED WELL. PT DENIES OTHER NEEDS AT THIS TIME.
--- NOTE | 2019-05-31 11:14 | NUR ---
PT SITTING IN CHAIR TALKING ON PHONE. ASKED IF I COULD COME BACK LATER. WILL FOLLOW NEEDED
--- NOTE | 2019-05-31 14:58 | NUR ---
PT WITH PAIN 7/10 TO ABD, GIVEN 2MG IV DILAUDID. PT WITH LEFT LEG CRAMPS, CALF NOT TENDER OR WARM TO PALPATE. SCDS REMOVED. PLAN FOR WALK IN 30 MINUTES TO STRETCH LEGS AND HELP INCREASE GI MOTILITY. PT DENIES OTHER NEEDS AT THIS TIME.
--- NOTE | 2019-05-31 15:15 | NUR ---
PATIENT AMBULATED SMALL LOOP AROUND NURSES STAITION WITH FWW STAND BY ASSIST THEN TO BATHROOM.
--- NOTE | 2019-05-31 16:18 | NUR ---
NEW BAG OF TPN INFUSING, LIPIDS INFUSING, SECOND RN VERIFICATION WITH NACHO MENDEZ. IV CEFEPIME INFUSING. PT RESTING IN BED. PT DENIES OTHER NEEDS AT THIS TIME.
--- NOTE | 2019-05-31 17:07 | NUR ---
NG TUBE AND CROWE CATH REMOVED THIS AM. PT CONTINUES TO BE NPO, DENIES NAUSEA, BOWEL TONES ACTIVE, PT PASSING FLATUS. PT SBA, WALKED IN TILLMAN. TPN AND LIPIDS INFUSING. RIGHT IJ WITH BLUE PORT OCCLUDED, CEFEPIME AND FLAGYL. PT VOIDING QS.
--- NOTE | 2019-05-31 20:05 | NUR ---
c/o 12/22 abd pain, medicated with 2mg Dilaudid IV, IVF infusing w/o problems
--- NOTE | 2019-05-31 22:03 | NUR ---
In bed, awake, c/o 7-8/10 abd pain, medicated with DIlaudid 2mg IV. midline abd incision with katt, abd open area pink edges, no odor, scant amount of yellow drainage noted. Dressing changed with NS soaked gauze and dry gauze. alejandro, states passing gas. Continues to be NPO. TPN and LIpids infusing. R neck Cl intact. SCDS in place, Pt does own mouth care, call light at bedside. Coop with dressing change. Turns self in bed, improved affect, smiling, Coop with assessment.
--- NOTE | 2019-06-01 00:48 | NUR ---
UP TO BR, VOIDED, BACK TO BED 1PA/FWW, C/O 7/10 ABD PAIN, MEDICATED WITH DILAUID 2MG IV. NPO, MOUTH CARE DONE BY SELF. TPN/LIPIDS INFUSING, NO C/O ADVERSE REACTION TO IV ABX. CALL LIGHT AT BEDSIDE
--- NOTE | 2019-06-01 03:24 | NUR ---
up to br, voided, back to bed, 1pa/fww, cpox in place, tolerated well. c/o 12/22 abd pain, medicated with Dilaudid 2mg IV, npo, does own mouth care, tpn infusing
--- NOTE | 2019-06-01 06:37 | NUR ---
Up to br, voided, back to bed, 1pa/fww, tolerated well, c/o 8/10 abd pain, medicated with Shabana 15mg IV and Dilaudid 2mg IV. call light at bedside, NPO
--- NOTE | 2019-06-01 06:40 | NUR ---
TPN infusing R neck area CL patent, No c/o adverse reaction to abx. Has been medicated with Dilaudid 2mg IV 5X and Toradol X!, with good to fair pain relief for abd pain and general pain. Midline abd incision with katt, pink, dry except for incision dehisced at belly button area, dressing changes done, area pink, slight drainage of yellow drainage, no odor. Up to br with 1pa/fww weak gait but much improved. improved affect. Continues to be NPO, does own mouth care. on TPN, using call light appropriately
--- NOTE | 2019-06-01 07:25 | NUR ---
HANDOFF REPORT RECEIVED FROM DRESS SHOE INSPECTOR RN. PT RESTING IN BED. PT DENIES NEEDS AT THIS TIME.
--- NOTE | 2019-06-01 08:10 | NUR ---
PT RESTING IN BED. PT ON ROOM AIR, LUNG SOUNDS CLEAR, O2 SATS 97-99%. PT RATING PAIN 8/10, GIVEN 2MG IV DILAUDID. BOWEL TONES ACTIVE, PT ORDERED BREAKFAST ADVANCED TO FULL LIQUID DIET. TPN INFUSING. CMS INTACT, WITHOUT EDEMA. DISCUSSED PLAN OF CARE FOR THE DAY, ICNLUDING WALKIN GIN THE TILLMAN, DRESSING CHANGES FOR IJ AND AND ABD, PT DENIES OTHER NEEDS AT THIS TIME.
--- NOTE | 2019-06-01 11:00 | NUR ---
PT GIVEN 2 MG IV DILAUDID, CEFEPIME AND CALCIUM GLUCONATE INFUSING. STERILE DRESSING CHANGE COMPLETED TO RIGHT IJ CENTRAL LINE PER PROTOCOL, 7 CM EXPOSED, SITE WITHOUT S/S OF INFECTION. DRESSING CHNAGE COMPLETED TO ABD WOUND, PACKED WITH SALINE GAUZE PER ORDER. PT NOW RESTING COMFORTABLY IN BED. PT DENIES OTHER NEEDS AT THIS TIME.
--- NOTE | 2019-06-01 15:00 | NUR ---
TPN INFUSION ENDED 1 HOUR BEFORE IT SHOULD HAVE, CONTACTED PHARMACY AND NEXT BAG IS NOT AVAILABLE YET. CONTACTED DR. MILLS AND ORDER TO HANG D10 AT SMAE RATE OF TPN OF 62.9 ML/HR, COMPLETED. CEFEPIME AND FLAGYL INFUSION COMPLETED AND WHITE PORT OF IJ HEPARIN LOCKED. PT DENIES OTHER NEEDS AT THIS TIME.
--- NOTE | 2019-06-01 16:10 | NUR ---
TPN INFUSION STARTED TO DISTAL IJ LINE, MEDICATION VERIFIED WITH VANESSA GRIFFITH.
--- NOTE | 2019-06-01 16:58 | NUR ---
PROXIMAL LINE OF IJ FLUSHING WELL, DOES NOT HAVE BLOOD RETURN. DR. MILLS NOTIFIED, ORDER TO INFUSE ALTEPLASE PER CENTRAL LINE PROTOCOL, OK TO FINISH ANTIBIOTIC INFUSION AND THEN DO ALTEPLASE.
--- NOTE | 2019-06-01 16:59 | NUR ---
PATIENT IN BED, PATIENT WALKED WITH PHYSICAL THERAPY ONE SHORT LOOP
--- NOTE | 2019-06-01 17:50 | NUR ---
PT REQUESTING PAIN MEDICATION, RATING PAIN 8-9/10, GIVEN 15 MG IV TORADOL AND 2 MG IV DILAUDID. DISCUSSED PLAN OF CARE FOR THE NIGHT AND ALTEPLASE ORDER. PT DENIES OTHER NEEDS AT THIS TIME.
--- NOTE | 2019-06-01 19:54 | NUR ---
Up to br, voided, back to bed, 1PA/FWW. IVF infusing R neck CL. medicated with 2mg IV dilaudid 12/22 abd pain, midline abd incision with katt open to air, edges pink, dry well approx except at umbilical area dehisced area edges dry, pink no odor slight amount of clear yellow drainage. dressing done as per orders, tolerating full liquid diet well. call light and fluids at bedside
--- NOTE | 2019-06-01 22:28 | NUR ---
c/o 12/22 abd pain . medicated with dilaudid 2mg iv
--- NOTE | 2019-06-02 00:03 | NUR ---
Resting, eyes closed, no resp distress, CPOX inplace, p 79, R16, sats 99% on room air. HOB elevated in pillows to her comfort.R IJ CL infusing Cefepine and TPN. SCDS in place. midline abd incision dressing in place. Fluids and call light at bedside.
--- NOTE | 2019-06-02 01:38 | NUR ---
UP TO BR, VOIDED LARGE AMOUNT OF CLEAR YELLOW URINE. BACK TO BED, 1PA/FWW. C/O 12/22 ABD PAIN, MEDICATED WITH DILAUDID 2MG IV
--- NOTE | 2019-06-02 03:38 | NUR ---
Resting, eyes closed, resp even, unlabored, hob elevated with pillows, IVF TPN infusing, R IJ intact, patent. call light and fluids at bedside
--- NOTE | 2019-06-02 04:41 | NUR ---
Up to br, voided, back to bed, 1pa/fww. C/o abd pain 12/22 medicated with Toradol 15mg and DIlaudid 2mg IV
--- NOTE | 2019-06-02 05:36 | NUR ---
Pt currently awake, watching tv. Has been medicated 4x with Dilaudid 2mg IV and Toradol 15mg IV x1 with good to fair pain relief for abd pain. midline abd incision with katt, edges pink, dehised are at umbilical area with very scant amount of light clear yellow drainage, no odor. dressing changed done s per orders. passing gas, no bm. on full liquids , taking small sips. Up to br 5x with 1pa/fww, tolerating well, weak gait but much improved. repositions self in bed, dry, non productive cough noted. lungs clear, scds off at this time. R IJ CL patent. altaplase used on both white and blue port, both patent now. TPN infusing in brown port w/o problems. uses call light appropriately, improved affect. fresh water at bedside
--- NOTE | 2019-06-02 07:15 | NUR ---
Bedside report received, orders acknowledged. Patient up to toilet with 1PA. TPN infusing.
--- NOTE | 2019-06-02 07:45 | NUR ---
Critical lab value reported, hemoglobin of 6.6. Dr. Ayala notified.
--- NOTE | 2019-06-02 07:47 | NUR ---
patient is up in chair, and linens are changed, patient needed no other assistance at this time
--- NOTE | 2019-06-02 08:00 | NUR ---
Dr. Ayala in room to discuss POC with patient
--- NOTE | 2019-06-02 08:15 | NUR ---
Patient reports pain of 8/10, prn pain medication given (see MAR).
--- NOTE | 2019-06-02 08:38 | NUR ---
Patient returns to bed with 1PA, warm blankets provided. Patient reports fatigue today. Assessment complete, bowel tones active. Patient denies tenderness to palpation. Denies further needs, call light within reach.
--- NOTE | 2019-06-02 09:21 | NUR ---
Blood draw performed on IJ, white port. 8 mls discarded, 5 mls drawn for lab sample. White port flushes and draws blood per protocol. New clave attached to white port. Blood sample sent to lab. New blood band applied to patient with second check with zinc furnace charger, Arielle.
--- NOTE | 2019-06-02 09:24 | NUR ---
PATIENT IN BED, PATIENT IS WAITING TO RECIVE BLOOD, PATIENT HAD NO OTHER NEEDS AT THIS TIME
--- NOTE | 2019-06-02 10:09 | NUR ---
PT working with patient, walked hallways with TPN running at 62.9 mls/hr. Calcium gluconate running at 120 mls/hr and magnesium running at 106 mls/hr. Patient reports pain of 7/10, prn pain medication given (see MAR). Denies further needs, call light within reach.
--- NOTE | 2019-06-02 10:48 | NUR ---
Patient sitting up in bed watching tv. IV abx hung at 25 mls/hr. IV magnesium and IV calcium gluconate finished infusing. TPN continuing to run at 62.9 mls/hr. Patient reports pain of 6/10 after prn pain medication administration, states that "is acceptable right now." Denies nausea. No further needs at this time, call light within reach.
--- NOTE | 2019-06-02 13:26 | NUR ---
Blood tubing primed per protocol. Blood verified by second RN check. Pre-administration vitals taken. Blood running at 30 mls/hr for fifteen minutes. Patient educated on symptoms to report to RN during blood administration. Patient denies pain or symptoms of reaction to blood administration. This RN at the patient bedside.
--- NOTE | 2019-06-02 13:41 | NUR ---
Vital signs taken at 15 minute interval during blood administration. Blood increased to 100 mls/hr. Patient tolerating administration well, denies pain or SOB.
--- NOTE | 2019-06-02 15:50 | NUR ---
First unit of RBCs complete. Post vital signs taken. Patient denies pain or SOB.
--- NOTE | 2019-06-02 15:50 | NUR ---
Second unit of RBCs initiated. Vital signs taken prior to administration. Patient denies pain or SOB.
--- NOTE | 2019-06-02 16:05 | NUR ---
Vital signs taken at 15 minute interval with second infusion of RBCs. Patient denies pain or SOB. Blood rate of 150 mls/hr. Call light within reach.
--- NOTE | 2019-06-02 18:15 | NUR ---
Second unit finished infusing. Vital signs taken post infusion. Patient denies pain or SOB. Lab notified of infusion complete to draw CBC. Call light within reach.
--- NOTE | 2019-06-02 20:36 | NUR ---
in bed watching tv, c/o 8/10 abd pain. medicated with 2mg Dilaudid IV, cbg 116, no coverage, call light and fluids at bedside. no c/o n/v at this time, on regular diet, poor intake. midline abd incision edges well approx except at umbilical site dehisced area, dressing changed as per orders
--- NOTE | 2019-06-02 22:18 | NUR ---
up to br, voided, back to bed, medicated with Dilaudid 2mg IV
--- NOTE | 2019-06-02 23:18 | NUR ---
up to br, voided, bsc brought close to bed, ptdid a return demonstration, tolerated and did well. Abd dressing changed again scant amount of serous drainage noted, no odors. pt instructed on how to change dressing and whjat to inspect for. stated understanding, pt isleft handed. did fair, continue to reinforce how to change dressing prior to dc.
--- NOTE | 2019-06-03 00:20 | NUR ---
AWAKE, WATCHING TV, C/O 8/10 ABD PAIN. MEDICATED WITH DILAUDID 2MG IV
--- NOTE | 2019-06-03 01:59 | NUR ---
0129 - upto bsc, c/o dry heaving, medicated with zofran 4mg IV, cbg 91, fluids and call light at bedside
--- NOTE | 2019-06-03 03:26 | NUR ---
RESTING, EYES CLOSED, RESP EVEN, UNLABORED, IVFINFUSING, R IJ CL PATENT
--- NOTE | 2019-06-03 05:46 | NUR ---
up to bs, c/o 8-01/22 abd pain, no further c/o n/v. Medicated with Dilaudid 2mg IV. Repositions self in bed, R IJ intact
--- NOTE | 2019-06-03 06:19 | NUR ---
pT CURRENTLY AWAKE, WATCHING TV. CONTINUES TO HAVE FLAT AFFECT BUT MUCH IMPROVED. HAS GOT UP TO BSC SEVERAL TIMES W/O HELP AND VOIDED LARGE AMOUNT OFYELLOW URINE,NO BM.STATESPASSING GAS. hAS BEEN MEDICATED WITH DILAUDI 2MG IV 4X WITH GOOD TO FAIR PAIN RELIEF. MEDICATED WTIH ZOFRAN X1 PER C/O DRY HEAVING, NO EMESIS, EFFECTIVE. ABD INCISION OPEN TO AIR, DEHISCED ARE ATUMBILICUS WITH CLEAR-YELLOW SMALL AMOUNT OF DRAINAGE, NO ODOR. PT TRIED TO DO DRESSING CHANGE WITH NURSE WATCHING, HAD A HARD TIME,CONTINUE TO REINFORCE SELF DRESSING CHANGES. NOT TOLERATING REG DIET. CBG AT 0200 WAS 91. FLUIDS AND CALL LIGHT AT BEDSIDE. R IJ CL INTACT, NO C/O ADVERSE REACTION TO ABX BEING INFUSED. ALL PORTS FLUSHING WELL., ENCOURAGE SELF CARE.REASSURE SAFETY
--- NOTE | 2019-06-03 07:16 | NUR ---
RECIEVED BEDSIDE REPORT FROM VANESSA THOMASON. PT IS AWAKE AND ALERT IN BED. HAS CONCERNS ABOUT ITCHING AROUND INCISION AND PUBIC AREA. DR MILLS WILL ORDER BENYADRYL CREAM.
[2019-06-03] MEDS ORDERED: CIPRO500 MG PO (08:18)
[2019-06-03] MEDS ORDERED: FLAGYL500 MG PO (08:18)
[2019-06-03] MEDS ORDERED: SALINE WOUND W210 M1 TOP (08:21)
--- NOTE | 2019-06-03 09:55 | NUR ---
SPOKE WITH PATIENT AND LAURA MANAGER WIRELESS IN ROOM. PATIENT DISCUSSED DISCHARGE PLAN. SHE PLANS ON GOING HOME AND HER FRIEND CHUCKY WILL BE HELPING HER. SHE FEELS SHE IS ABLE TO GET AROUND FINE, IS A LITTLE WEAK. HAS A CANE AND WALKER AT HOME IF NEEDS. DISCUSSED CONCERN OF ABD DRESSING CHANGES TWICE A DAY. PATIENT STATES SHE WORKED WITH NIGHT NURSE ON THIS LAST NIGHT. DID NOT CHANGE IT HERSELF. STATES IT IS AWKWARD TO SEE. DURING THIS CONVERSATION HER FRIEND CHUCKY CALLED. I SPOKE WITH HER TO SEE IF SHE WOULD BE ABLE TO HELP WITH DRESSING CHANGES AT HOME. WE DISCUSSED WHAT IS ENTAILE, MANAGER WIRELESS WAS DOING THIS DRESSING CHANGE WHILE I WAS ON THE PHONE AND WAS ABLE TO DESCRIBE IT. SHE THINKS SHE MIGHT BE ABLE TO HELP WITH THIS, SHE WILL BE IN AFTER 12 TO MEET WITH MANAGER WIRELESS AND PATIENT TO SEE IF SHE THINK SHE CAN DO IT. WE DISCUSSED PATIENT MIGHT BE ABLE TO COME TO WOUND CLINIC FOR DRESSING CHANGES BUT THAT HER INSURANCE WILL HAVE TO BE NOTIFIED TO SEE IF THEY WILL COVER THIS AND TODAY IS A HOLIDAY SO I CAN'T CALL AND SPEAK WITH THEM. SHE STATES THEY COULD AT LEAST DO IT UNTIL INSURANCE CAN BE DEALT WITH IF PATIENT WENT HOME TODAY PLANNED. PATIENT AGREEABLE TO ALL THIS. MANAGER WIRELESS WAS THERE FOR WHOLE CONVERSATION.
--- NOTE | 2019-06-03 10:23 | NUR ---
ROUNDED WITH JALIL, CASE MANAGEMENT. PT RECIEVED A PHONE CALL FROM HER ROOMMATE. JALIL DISCUSSED OPTIONS FOR DRESSING CHANGE. ROOMMATE WILL BE IN LATER TODAY, AFTER HER PHYSICAL THERAPY. RN WILL DO TEACHING FOR PT AND ROOMMATE ON DRESSING CHANGE.
--- NOTE | 2019-06-03 12:06 | NUR ---
PATIENT GOING HOME TODAY. I STOPPED IN TO PROVIDE EDUCATION ON HIGH-CALORIE HIGH-PROTEIN FOODS FOR HOME. SHE STATES SHE WAS EXCITED WHEN HER WEIGHT WAS 95 LBS NOT TOO LONG AGO, THEN SHE WAS HOSPITALIZED AND LOST WEIGHT. SHE SAID SHE NORMALLY WEIGHS 120 LBS, BUT THE LAST TIME SHE WEIGHED 120 LBS WAS IN 2017 WHEN SHE STARTED HAVING STOMACH PROBLEMS. PROVIDED HER A HANDOUT FROM THE [facility] ON HIGH-CALORIE, HIGH-PROTEIN NUTRITION. VERBAL EDUCATION ON ADDING CHEESE, BUTTER, OIL, MAYONNAISE, AND PEANUT BUTTER TO FOODS TO INCREASE CALORIES. SHE LIKES WHOLE MILK, EGGS, CHICKEN, SOME MEAT. DOES NOT LIKE COTTAGE CHEESE OR FISH. SHE IS NOT REAL KEEN ON DRINKING ENSURE - STATES SHE WOULD RATHER GET HER CALORIES FROM FOOD. SHE JUST NEEDS TO EAT SMALL AMOUNTS FREQUENTLY. THIS IS GREAT AND I REMINDED HER TO BE CONSISTENT WITH HER INTAKE, TO MAKE SURE SHE IS EATING OR DRINKING SOMETHING EVERY 2-3 HOURS. SHE LOVES PEPSI. CANNOT EAT NUTS OR SEEDS DUE TO DIVERTICULOSIS.
--- NOTE | 2019-06-03 14:11 | NUR ---
DISCHARGE TEACHING COMPLETE. TAUGHT WOUND CARE/DRESSING TO PT AND HER FRIEND WHO WILL PROVIDE ASSISTANCE. BOTH PARTIES UNDERSTAND THE DRESSING CHANGE PROCESS. GAVE PT PRODUCTS TO CHANGE DRESSING UNTIL THEY CAN GET TO THE PHARMACY. RIGHT IJ CENTRAL LINE REMOVED. PRESSURE HELD FOR >10 MINUTES WITH NO BLEEDING. COVERED SITE WITH GAUZE AND OCCLUSIVE TAPE. PT VERBALIZED UNDERSTANDING TO LEAVE DRESSING IN PLACE FOR 24 HOURS. DISCUSSED HOME ACTIVITY, DIET, FOLLOW UP, WHEN TO CALL THE DR. PT VERBALIZED UNDERSTANDING. PHARMACY IN TO DISCUSS MEDICATIONS. PT HAD NO ADDITIONAL QUESTIONS.
--- NOTE | 2019-06-03 19:53 | DS ---
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 PROCEDURES: 1. Explantation of mesh. 2. Small bowel resection (jejunum) with exuf-eb-sfuk stapled anastomosis. 3. Omentectomy. 4. Placement of right IJ triple lumen catheter with physician-directed ultrasound. HISTORY OF PRESENT ILLNESS: Kailyn is a 64-year-old female, who had presented with a 2-week history of periumbilical abdominal pain. She has had a previous incisional hernia repair with mesh. We had taken to the operating room that same day and explanted all the mesh as well as the omentum. We resected just 3-4 cm of the jejunum and brought it back together [id number]-iq-[id number] with a stapled anastomosis. We had placed a right IJ triple lumen catheter with ultrasound for ongoing support and TPN. She is quite cachectic. Her cultures had grown out Klebsiella. It was sensitive to our cefepime and we also used Flagyl. She has been on cefepime and Flagyl throughout the hospital stay. She has required multiple boluses of calcium, magnesium and potassium. She has slowly but surely made good improvements. We left the skin open around the umbilicus about 2 cm or so. That area is now markedly improved. We are using simple saline gauze packing. She is quite anemic and finally, her hemoglobin had dropped down around 6.6. We gave her couple units of blood yesterday and it is up to 9.7. She has had iron studies and so forth done by our Internal Medicine Service. At this point, she is tolerating a regular diet. She is having lots of gas. She has not had a bowel movement yet. The abdomen is completely soft, flat and nontender. Again, the incision opened in the center about 2 cm is nice and clean. At this point, she is doing well and will be discharged home with her friend, Arleen. DISCHARGE PLANS AND MEDICATIONS: Kailyn will be discharged to home and she can resume her Suboxone. She can supplement that with Tylenol, ibuprofen or Aleve. She can resume any other chronic medications indeed. She can follow her regular diet. She should not do any heavy pushing, pulling, or lifting over about [address] if she is on narcotics. We have already removed all of her katt. She will use a saline gauze twice a day in the wound and otherwise wash and shower as usual with soap and water directly into the wound. We will also give her a prescription for Cipro and Flagyl and will carry that out, I think Electronically Signed By: MARIA G MILLS MD 06/03/191952 PATIENT NAME: KAILYN MEJÍA DISCHARGE SUMMARY DATE OF : 55 REPORT #: [id number] PHYSICIAN: MARIA G MILLS MD PCP: ISMAEL RAMÍREZ DO REPORT IS CONFIDENTIAL AND NOT TO BE RELEASED WITHOUT AUTHORIZATION [id number] [place], [place] [address] Signed another seven days. That will give her a full 17 days of antibiotics. She will follow up in my office in about a week. She has expressed understanding and agrees above plan. Maria G Mills MD ALB/MODL /[id number] cc: MD Ismael Fang DO Copies: MARIA G MILLS MD, ARIAN DO ~ Electronically Signed By: MARIA G MILLS MD 06/03/19 1953 PATIENT NAME: KAILYN MEJÍA DISCHARGE SUMMARY DATE OF : 55 REPORT #: [id number] PHYSICIAN: MARIA G MILLS MD PCP: ISMAEL RAMÍREZ DO REPORT IS CONFIDENTIAL AND NOT TO BE RELEASED WITHOUT AUTHORIZATION
== END 2019-06-03 13:28 | disposition home or self-care (01) | DRG 907 ==
LOC: ED 14:33 → CCU 18:23 → MS 18:23 → CCU 05-25 15:55 → MS 05-28 10:45
PROVIDERS: ADMIT Colon & Rectal Surgery
PROC: 0DBU0ZZ Excision of Omentum, Open Approach (ICD-10-PCS; 2019-05-25)
PROC: 02HV33Z Insertion of Infusion Device into Superior Vena Cava, Percutaneous Approach (ICD-10-PCS; 2019-05-25)
PROC: 3E0T3BZ Introduction of Anesthetic Agent into Peripheral Nerves and Plexi, Percutaneous Approach (ICD-10-PCS; 2019-05-25)
PROC: 0DBA0ZZ Excision of Jejunum, Open Approach (ICD-10-PCS; principal; 2019-05-25 10:39)
PROC: 0WPF0JZ Removal of Synthetic Substitute from Abdominal Wall, Open Approach (ICD-10-PCS; 2019-05-25 10:39)
DX: T85.79XA Infection and inflammatory reaction due to other internal prosthetic devices, implants and grafts, initial encounter (principal); E43 Unspecified severe protein-calorie malnutrition; K63.2 Fistula of intestine; Z68.1 Body mass index [BMI] 19.9 or less, adult; G89.18 Other acute postprocedural pain; B96.1 Klebsiella pneumoniae [K. pneumoniae] as the cause of diseases classified elsewhere; E87.6 Hypokalemia; E83.42 Hypomagnesemia; F32.9 Major depressive disorder, single episode, unspecified; K21.9 Gastro-esophageal reflux disease without esophagitis; J44.9 Chronic obstructive pulmonary disease, unspecified; M54.5 Low back pain; G89.4 Chronic pain syndrome; Y83.4 Other reconstructive surgery as the cause of abnormal reaction of the patient, or of later complication, without mention of misadventure at the time of the procedure; Z66 Do not resuscitate; Z87.891 Personal history of nicotine dependence; Z79.899 Other long term (current) drug therapy; Z79.891 Long term (current) use of opiate analgesic; Z88.1 Allergy status to other antibiotic agents
CPT/HCPCS: 36415; 71045; 74177; 76942; 80048; 80053; 80061; 81001; 82306; 82607; 82728; 82746; 83540; 83690; 83735; 84100; 84134; 84466; 85025; 85610; 85651; 86850; 86900; 86901; 86920; 87070; 87075; 87076; 87077; 87185; 87186; 87205; 88307; 93005; 93010; 94640; 94760; 94762; 96361; 97110; 97116; 97162; 99285-25; C9113; J0610; J0692; J1100; J1170; J1644; J1815; J1885; J2370; J2405; J2550; J2704; J2795; J2997; J3010; J3430; J3475; J3480; J7030; J7040; J7060; P9016; Q9967

== ENCOUNTER 2020-11-27 13:46 | Inpatient (IN) | payer MEDICARE ==
[~2020-11-27] VITALS: Ht 165.1 cm; Wt 35.9 kg
[~2020-11-27 13:46] MED LIST changes: +ANORO ELLIPTA1 EACH INH; -BUPRENORPHIN-N1 EACH SL; +CIPRO500 MG PO; +FLAGYL500 MG PO; +FOLIC ACID1 MG PO; +K-TAB ER8 MEQ PO; +REMERON15 MG PO; +SALINE WOUND W210 M1 TOP; +SUBOXONE 8 MG-1 EAC1 SL; +VOLTAREN100 GM TOP
--- OUTSIDE RECORDS SUMMARY | 2020-11-27 13:48 | XMS ---
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 Care History Medical/Surgical 05/27/2019 [facility] Patient transferred from clinic to ED then admitted.\T\nbsp; Patient has new patient visit on 06/17/[address] Vieyra, 10/03/2018 [facility] - Patient is currently established with [facility]. If patient is seen in the ED during business hours. Please contact CHWs at [facility]. Care Recommendation: If this patient has had 5 or more Emergency Department visits in the last 12 months.\T\nbsp; Patient will require education on the scope and purpose of the ED as an acute care provider not a Primary Care Provider and should not be utilized for chronic conditions.\T\nbsp; These are guidelines and the provider should exercise clinical judgment when providing care. [place] VISIT COUNT (12 MO.) 1 [facility] TOTAL 1 NOTE: Visits indicate total known visits. ED/UCC VISIT TRACKING (12 MO.) 11/27/2020 13:47 N[facility] [place] TYPE: Emergency COMPLAINT: - WEAKNESS INPATIENT VISIT TRACKING (12 MO.) No inpatient visits to display in this time frame [email or web address]
[2020-11-27] MEDS ORDERED: LISINOPRIL10 MG PO (17:52)
[2020-11-27] MEDS ORDERED: GABAPENTIN300 MG PO (17:53)
[2020-11-27] MEDS ORDERED: FLUTICASONE-SA1 EAC5 INH (17:55)
--- NOTE | 2020-11-27 19:15 | NUR ---
PT ARRIVES TO FLOOR VIA STRETCHER, ABLE TO SCOOT HERSELF OVER TO BED. ADMISSION PROCESS COMPLETE. PT DENIES QUESTIONS OR CONCERNS. EDUCATION PROVIDED REGARDING ROOM, POC FOR THIS SHIFT, CALL LIGHT USE. PT DENIES FURTHER NEEDS, PERSONAL ITEMS IN REACH.
--- NOTE | 2020-11-27 20:15 | NUR ---
Walked up to br, sba/cane, voided clear yellow urine, back to bed. mag sulfate started as per orders, med info given. repositioned in bed. coop with assessment, on room air, call light and fluids at hands reach. warm blanket given.
--- NOTE | 2020-11-27 22:38 | NUR ---
AWAKENS EASILY, NO C/O PAIN, N/V OR LOOSE STOOLS. IVF WITH K STARTED AT THIS TIME, MAG RIDER COMPLETED, WARM PAD TO ARMS. CALL LIGHT AT BEDSIDE
--- NOTE | 2020-11-27 23:56 | NUR ---
resting, eyes closed, no distress, hob elevated to her comofrt. IVF with K infusing. toleratng well
--- NOTE | 2020-11-28 01:51 | NUR ---
Up to br, voided, back to bed, no c/o pain, on room air, ivf infusing w/o problems.
--- NOTE | 2020-11-28 02:57 | NUR ---
C/O 11/21 PAIN, MEDICATED WITH FENTANYL 25MCG IV, REASSURED, REPOSITIONS SELF IN BED, IVF INFUSING, USES CALL LIGHT, FRESH FLUIDS GIVEN
--- NOTE | 2020-11-28 03:55 | NUR ---
uP TO BR, VOIDED QS, BACK TO BED, TOLERATED WELL, IVF INFUSING, NO C/O ADVERSE REACTION. NO FURTHER C/O PAIN. ALERT AND ORIENTED, STEADY GAIT
--- NOTE | 2020-11-28 05:54 | NUR ---
up to br, sba, voided, back to bed, medicated with fentnyl 25mcg per c/o 11/21 back pain. ivf infusing
--- NOTE | 2020-11-28 06:01 | NUR ---
pt has slept off and on since admission. on room air, received Magnesium rider IV, IVF w K infusing, has tolerated well. tolerating fluids well, no n/v. no diarrhea. voiding QS. Has been medicated with Fentanyl 25mcg x2 with fair to good pain relief. Currently awake, lab in room, cooperative. pleasant. uses call light
--- NOTE | 2020-11-28 07:45 | NUR ---
REPORT RECEIVED FROM NIGHT RN AND PT. CARE RESUMED. PT. IS ALERT AND ORIENTED. SHE STATES SHE CANNOT GET COMFORTABLE AND HAS ACHING ABDOMINAL PAIN. ADMIN PRN FENTANYL AND GIVEN A WARM BLANKET. LUNGS DIM. IN THE BASES. BOWEL TONES HYPERACTIVE. WEAKENED IN ALL LIMBS WITH COOKY MACHINE OPERATOR STRENGTH AND FOOT PUSHES. IV SITE WNL AND FLUSHES WELL. DISCUSSED MEDS, POC, PAIN MANAGEMENT. PT. LEFT RESTING WITH CALL LIGHT IN REACH.
[2020-11-28] MEDS ORDERED: ADVIL200 MG PO (11:27)
[2020-11-28] MEDS ORDERED: TYLENOL EXTRA500 MG PO (11:28)
--- NOTE | 2020-11-28 11:28 | NUR ---
MED REC COMPLETE
--- NOTE | 2020-11-28 11:36 | NUR ---
MED REC COMPLETE
--- NOTE | 2020-11-28 16:30 | NUR ---
PT. IS REPORTING CRAMPING ABDOMINAL PAIN AND BACK PAIN THROUGHOUT THE DAY. FENTANYL ADMIN. SEVERAL TIMES. FOR TEMPORARY RELIEF. SHE DENIES NAUSEA AT THIS TIME.
--- NOTE | 2020-11-28 18:16 | NUR ---
PT. IS HERE FOR ACUTE KIDNEY INJURY. SHE HAS HAD ABDOMINAL PAIN ALONG WITH DIARRHEA THROUGHOUT THE DAY. CHRONIC BACK PAIN WELL. SHE NEEDS TO USE HER CANE WHEN WALKING WITH SBA, PER P.T.
--- NOTE | 2020-11-28 19:18 | NUR ---
Up to br, 1PSBA,alert and oriented, on room air, uses call light
--- NOTE | 2020-11-28 20:00 | NUR ---
OUT OF BED WALKING IN ROOM. EXTENDING R ARM WITH IV TUBING, INSTRUCTED TO CALL RN, STATED UNDERSTANDING. FRESH WATER GIVEN, UP TO BR, VOIDED, BACK TO BED. RESTLESS, FIDGETTY, DR MUIR IN UNIT, NOTIFIED AND NOTIFIED OF TELERX R/T ZANAFLEX DOSAGE. STATED SHE WOULD REVIEW PTS MEDS. PT NOTIFIED
--- NOTE | 2020-11-28 20:34 | NUR ---
MEDICATED WITH VISTARIL PER C/O INSOMNIA AND RESTLESSNESS. IN BED, TURNS AND REPOSITIONS SELF. IVF INFUSING, TOLERATING SIPS OF FLUIDS
--- NOTE | 2020-11-28 22:04 | NUR ---
very restless, c/o back, neck and head pain 12/22. medicated with fentanyl 25mcg at this time. up to br.
--- NOTE | 2020-11-28 23:26 | NUR ---
up to br, voided, back to bed, 1pa/cane, tolerated well, c/o 7/10 neck and back pain. medicated with fentanyl 25mcg iv. IVF infusing
--- NOTE | 2020-11-29 00:50 | NUR ---
UP TO BR, VOIDED AND HAD A SMALL LIQUID BM. BACK TO BED, 1PA/CANE, C/O PAIN 11/21 MEDICATED WITH FENTANYL 25MCG IV, TOLERATING SIPS OF LIQUIDS, USES CALL LIGHT
--- NOTE | 2020-11-29 02:50 | NUR ---
UP TO BR, VOIDED AND HAD A LOOSE LIQUID BM, BACK TO BED, C/O 6/10 BACK AND NECK PAIN. MEDICATED WITH FENTANYL 25MCG. COOP WITH ASSESSMENT
--- NOTE | 2020-11-29 03:36 | NUR ---
PT WAS INCONTINENT OF LIQUID BOWEL, UP TO BR, VOIDED SMALL AMOUNT OF URINE, AND HAD MORE LIQUID BM. SKIN CARE DONE, CLEAN GOWN AND LINEN. BACK TO BED.
--- NOTE | 2020-11-29 06:01 | NUR ---
pt medicated with fentanyl 25mcg c/o 10/22 back and neck pain.
--- NOTE | 2020-11-29 06:03 | NUR ---
pt has not slept much this shift. on room air. has been medicated with fentanyl 25mcg IV 6X with fair to good pain relief. received first dose of Zanaflex with fair pain control. first dose of vistaril for insomnia, partially effective. Up to br several times voidingQS, has had several loose liquid stools and was incontinent x1 of stool x1. 1PA/cane. IVF infusing w/o problems. Tolerating sips of full liquids, no emesis. repositions self in bed, uses call light
--- NOTE | 2020-11-29 07:28 | NUR ---
Fentanyl 25mcg ivp admin by previous RN
--- NOTE | 2020-11-29 09:19 | NUR ---
Fentanyl 25mcg IVP admin for reports of 6/10 generalized pain.
--- NOTE | 2020-11-29 11:23 | NUR ---
Zofran 4mg IVP admin for reports of nausea.
--- NOTE | 2020-11-29 17:54 | NUR ---
Patient encouraged to drink more fluids. Patient provided with a protein shake from kitchen. No bowel movement yet to send. Patient reports she is feeling better this afternoon. No nausea at this time. Personal supplies and call light within reach.
--- NOTE | 2020-11-29 19:34 | NUR ---
I ASKED PATIENT IF SHE BRUSHED HER TEETH AND WASHED HER FACE AND SHE SAID YES. SHE ALSO SAID SHE GIVES HER SELF A WASH UP EVERYTIME SHE GETS DONE GOING TO THE BATHROOM.
--- NOTE | 2020-11-29 19:39 | NUR ---
REPORT OBTAINED FROM AM SHIFT. PT AWAKE, CALM, WATCHING TV, IVF INFUSING, ON O2
--- NOTE | 2020-11-29 19:39 | NUR ---
REPORT OBTAINED FROM AM RN, PT WATCHING TV. ON ROOM AIR, IVF INFUSING, AWARE OF NEED FOR STOOL SAMPLE. PO INCREAED INTAKE ENCOURAGED, SEMIRECEPTIVE
--- NOTE | 2020-11-29 21:13 | NUR ---
MAT INSPECTOR ROUNDING NOTE. PT UTILIZES CALL LIGHT, REQUESTS TO USE THE BATHROOM. VS OBTAINED, WNL. PT STATES THAT SHE IS FEELING MUCH BETTER, HOPES TO BE DISCHARGED HOME TOMORROW. PT DENIES FURTHER NEEDS AT THIS TIME. CALL LIGHT IN REACH.
--- NOTE | 2020-11-29 21:32 | NUR ---
ON ROOM AIR, COOPERATIVE WITH ASSESSMENT. MUCH MORE ALERT, ORIENED, CALM, NO C/O PAIN. UP TO BR AND VOIDED, BACK TO BED, TOLERATED WELL 1PA/CANE. TOLERATING FLUIDS WELL
--- NOTE | 2020-11-29 22:36 | NUR ---
ANSWERED CALL LIGHT. SBA TO THE BATHROOM AND BACK TO BED. PATIENT USING CANE.
--- NOTE | 2020-11-29 23:14 | NUR ---
resting, no ditress, on room air. IVF infusing, call light at hands reach
--- NOTE | 2020-11-30 01:15 | NUR ---
CALL LIGHT ANSWERED. SBA TO THE BATHROOM AND BACK TO BED. NO OTHER NEEDS AT THIS TIME.
--- NOTE | 2020-11-30 02:49 | NUR ---
pt awake, watching tv, no c/o pain. call light at hands reach
--- NOTE | 2020-11-30 05:43 | NUR ---
PT HAS BEEN AWAKE OFF AND ON THIS SHIFT. ON ROOM AIR. UP TO BR VOIDING QS, NO BM THIS SHIFT, PT AWARE OF NEED FOR STOOL SAMPLE. USES CANE 1PA, IVF INFUSING W/O PROBLEMS, NO C/O PAIN THIS AM. MUCH BRIGHTHER AFFECT AND STAMINE. SIPPING ON ICE CHIPS, PO FLUID ENCOURAGED, RECEPTIVE BUT NOT MUCH INTAKE . USES CALL LIGHT. C/O NASAL AND CHEST STUFFINESS THIS AM. LUNGS DIM AT BASES LLL WITH EXP WHEEZING AUSCULTATED AT THIS TIME. PT WICHING TO GO HOME
--- NOTE | 2020-11-30 07:29 | NUR ---
Patient awake, a&ox4. Patient reports she is feeling better today. No needs at this time. Breakfast ordered. No current needs.
--- NOTE | 2020-11-30 09:05 | NUR ---
PATIENT SITTING UP IN BED RESTING. VITALS AND I&O'S CHARTED. PATIENT SAID SHE WOULD DO AM AND ORAL CARE NEXT TIME SHE IS UP TO BATHROOM. CALL LIGHT IN REACH. NO FURTHER NEEDS AT THIS TIME.
--- NOTE | 2020-11-30 09:25 | NUR ---
INTO ROOM, PATIENT LAYING IN BED WATCHING TV. PATIENT STATES SHE LIVES IN A ONE STORY HOME WITH HER LONG TIME FRIEND CHUCKY KING. PATIENT STATES CHUCKY WILL BE AT HOME TO STAY WITH THE PATIENT WHEN SHE RETURNS HOME. PATIENT STATES SHE DOES HAVE A CANE AT HOME THAT SHE USES FOR LONG DISTANCES WHEN SHE FEELS SHE NEEDS IT. PATIENT PREFERS TO DISCHARGE HOME WHEN READY. PATIENT DENIES FINANCIAL NEEDS AT THIS TIME. ALL DEMOGRAPHIC INFORMATION CONFIRMED. WILL CONTINUE TO VISIT PATIENT DURING HER VISIT.
--- NOTE | 2020-11-30 10:08 | NUR ---
PATIENT GIVEN GASTROGRAFIN IN APPLE JUICE, 10AM DOSE AND 11AM DOSE AT BEDSIDE FOR PATIENT. PATIENT DOES UNDERSTAND AND VERBALLY REPEATS BACK INSTRUCTIONS AND TIME FOR DOSES.
--- NOTE | 2020-11-30 11:30 | NUR ---
It was my pleasure to briefly meet paula Chamberlain and her roommate today. Cintia was eating when I entered the room. She appeared to be in no acute distress, and did not seem to have dificulty with eating. Cintia was oriented to person, place and time, and showed no acute distress at this time. She answered questions appropriately and acknowledged that she was happy with the care she has received while in the hospital. She feels that her room has been kept clean, and she feels that her pain has been managed well. When asked, she did verbalize that the halls were quiet at night and she was able to sleep. She does not express any concerns or share any questions at this time. She is anxious to return home to "take care" of her cat.
--- NOTE | 2020-11-30 11:44 | NUR ---
Patient completed second dose of gastrografin. Imagine made aware.
--- NOTE | 2020-11-30 14:07 | NUR ---
PATIENT IN BED WATCHING TV. VITALS AND I&O'S CHARTED. CALL LIGHT IN REACH. NO FURTHER NEEDS AT THIS TIME.
[2020-11-30] MEDS ORDERED: TIZANIDINE HCL4 MG PO (15:19)
== END 2020-11-30 16:10 | disposition home or self-care (01) | DRG 682 ==
LOC: ED 13:46 → MS 16:27
PROVIDERS: ADMIT Internal Medicine; ATTEND Internal Medicine
DX: N17.9 Acute kidney failure, unspecified (principal); E43 Unspecified severe protein-calorie malnutrition; R64 Cachexia; Z68.1 Body mass index [BMI] 19.9 or less, adult; E86.0 Dehydration; I95.9 Hypotension, unspecified; R19.7 Diarrhea, unspecified; J44.9 Chronic obstructive pulmonary disease, unspecified; R11.0 Nausea; G89.4 Chronic pain syndrome; Z66 Do not resuscitate; Z88.1 Allergy status to other antibiotic agents; Z88.8 Allergy status to other drugs, medicaments and biological substances; F17.200 Nicotine dependence, unspecified, uncomplicated; Z79.899 Other long term (current) drug therapy
CPT/HCPCS: 51701; 71045; 74177; 80048; 80053; 81001; 83735; 84100; 85025; 97116; 97162; 97165; 97530; 99285-25; C9803; J2405; J3010; J3475; J3480; J7040; J7060; J7120; Q0177; Q9967; U0003

== ENCOUNTER 2022-11-21 01:28 | Inpatient (IN) | payer MEDICARE ==
[~2022-11-21] VITALS: Ht 165.1 cm; Wt 43.2 kg
--- OUTSIDE RECORDS SUMMARY | ~2022-11-21 | XMS | Continuity of Care Document ---
Demographics + + + | Address | [address] | | | [place] [address] | + + + | Preferred Language | Unknown | + + + | Marital Status | Never | + + + | Hinduism Affiliation | Unknown | + + + | Race | White | + + + | Ethnic Group | Unknown | + + + Author + + + | Author | [facility] | + + + | Organization | [facility] | + + + | Address | [address] | | | [place] [address] | + + + | Phone | | + + + Care Team Providers + + + + | Care Plastic Surgery Assistant Name | Role | Phone | + + + + Unavailable | Unavailable | + + + + Allergies and Intolerances + + + + + | date | description | facility | type | + + + + + | (no date) | erythromycin base | [facility] | (unknown) | + + + + + | (no date) | potassium | [facility] | (unknown) | | | clavulanate | | | + + + + + | (no date) | azithromycin | [facility] | (unknown) | + + + + + | (no date) | amoxicillin | [facility] | (unknown) | + + + + + Encounters No information. Functional Status No information. Immunizations No information. Medications No information. 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 Results/Labs No information. Social History No information. Vital Signs No information."
--- OUTSIDE RECORDS SUMMARY | ~2022-11-21 | XMS | Continuity of Care Document ---
Demographics + + + | Address | [address] | | | [place] [address] | + + + | Preferred Language | Unknown | + + + | Marital Status | Never | + + + | Taoist Affiliation | Unknown | + + + | Race | White | + + + | Ethnic Group | Unknown | + + + Author + + + | Author | [facility] | + + + | Organization | [facility] | + + + | Address | [address] | | | [place] [address] | + + + | Phone | | + + + Care Team Providers + + + + | Care Pharmacy Technician Name | Role | Phone | + [...] + + + | 2022-01-19 15:52 | OVERNIGHT CAREGIVER (CURRENT) USE OF | [facility] | | [...]
--- OUTSIDE RECORDS SUMMARY | ~2022-11-21 | XMS | Continuity of Care Document ---
Demographics + + + | Address | [address] | | | [place] [address] | + + + | Preferred Language | Unknown | + + + | Marital Status | Never | + + + | Jewish Affiliation | Unknown | + + + | Race | White | + + + | Ethnic Group | Unknown | + + + Author + + + | Author | [facility] | + + + | Organization | [facility] | + + + | Address | [address] | | | [place] [address] | + + + | Phone | | + + + Care Team Providers + + + + | Care Extrusion Engineer Name | Role | Phone | + [...] + + + | 2022-01-19 15:52 | HEAD CHEF (CURRENT) USE OF | [facility] | | [...]
[~2022-11-21 01:28] MED LIST changes: +ADVAIR 100-501 EACH INH; +ADVIL200 MG PO; +ALL DAY ALLERGY10 M3 PO; +FLUTICASONE-SA1 EAC5 INH; +GABAPENTIN300 MG PO; +LISINOPRIL10 MG PO; +NEURONTIN300 MG PO; +TIZANIDINE HCL4 MG PO; +TYLENOL EXTRA500 MG PO
--- OUTSIDE RECORDS SUMMARY | 2022-11-21 01:30 | XMS ---
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 Care History Medical/Surgical 05/27/2019 [facility] Patient transferred from clinic to ED then admitted.\T\nbsp; Patient has new patient visit on 06/17/[address] Vieyra, 10/03/2018 [facility] - Patient is currently established with [facility]. If patient is seen in the ED during business hours. Please contact CHWs at [facility]. Care Recommendation: If this patient has had 5 or more Emergency Department visits in the last 12 months.\T\nbsp; Patient will require education on the scope and purpose of the ED as an acute care provider not a Primary Care Provider and should not be utilized for chronic conditions.\T\nbsp; These are guidelines and the provider should exercise clinical judgment when providing care. [place] VISIT COUNT (12 MO.) 1 NANI Cuevas TOTAL 1 NOTE: Visits indicate total known visits. ED/UCC VISIT TRACKING (12 MO.) 11/21/2022 01:29 N[facility] [place] TYPE: Emergency COMPLAINT: - SOB INPATIENT VISIT TRACKING (12 MO.) No inpatient visits to display in this time frame [email or web address]
[2022-11-21 04:07] VITALS: BP 151/84
[2022-11-21] MEDS ORDERED: PREDNISONE20 MG PO (04:18)
[2022-11-21] MEDS ORDERED: AZITHROMYCIN250 MG PO (04:19)
--- NOTE | 2022-11-21 04:45 | NUR ---
pt ARRIVES TO IA VIA STRETCHER. TRANSFERS SELF TO HOSPITAL BED. pt ON RA. SPO2 WNL. CPOX ON. RT IN ROOM. ORIENTATION TO ROOM PROVIDED. SBA TO BSC FOR VOID, BACK IN BED, SPO2 REMAINS >91% ON RA. pt SOB, LABORED BREATHING, TRIPODING. RT TO DELIVER BREATHING TREATMENT AT THIS TIME. pt HAS CLOTHING AND SHOES WITH HER ONLY. USES A CANE AT HOME WHEN NEEDED. pt STATES SHE'S WAITING ON BREATHING MACHINE FOR SLEEP WITH CAL BUT HASN'T GOTTEN IT YET. LIVES WITH FRIEND CHUCKY IN HOUSE AND DENIES NEEDS. CALL LIGHT IN REACH.
--- NOTE | 2022-11-21 05:00 | NUR ---
PT IN BED, KIRILL GENERALIZED R/T NEBULIZER TREAT, ADMIT ASSESSMENT COMPLETED, PT WITH HOB FULLY ELEVATED, SIDE RAILS X 2, PROPPED WITH PILLOWS, PT DENIES NEEDS AT THIS TIME, LAB IN FOR BLOOD DRAW.
--- NOTE | 2022-11-21 05:38 | NUR ---
CRITICAL LAB REPORT RECEIVED OF LACTIC ACID LEVEL OF 2.1 (DOWN FROM 2.7), CHARGE NURSE NOTIFIED.
--- NOTE | 2022-11-21 06:08 | NUR ---
PT ASLEEP, RESP REG AND FULL, 24/MIN, OXYGEN SATS 92%, IV INFUSING PER LEFT FOREARM, PT LEFT UNDISTURBED.
--- NOTE | 2022-11-21 07:56 | NUR ---
ASSESSMENT COMPLETED. ASSISTED PT UP TO BEDSIDE COMMODE. BECOMES SOB WITH EXERTION. SATS DROPPED TO 88%. REAMINS ON RA. SATS INCREASED TO 93% AFTER BACK TO BED.
[2022-11-21] MEDS ORDERED: ZANAFLEX4 MG PO (08:20)
[2022-11-21] MEDS ORDERED: FLUTICASONE-SA1 EAC5 INH (08:23)
[2022-11-21] MEDS ORDERED: BUPRENORPHINE-1 EACH SL (08:23)
--- NOTE | 2022-11-21 11:00 | NUR ---
Spoke with Cintia. She lives alone in a 1 story home with 1 step. She has chronic COPD with exacerbations and she has been working with [facility] for a noninvasive vent for several months. She uses a cane at home and a nebulizer. Pt plans on dc to home when cleared medically. She asks I call [facility] to check on her vent. Called and spoke with Katelyn at [facility] [place]. She submitted a hardship form and was notified today pt qualified and cost will be $60 dollars per month.
--- NOTE | 2022-11-21 11:22 | NUR ---
Medications reconciled using pharmacy records and patient interview
--- NOTE | 2022-11-21 12:50 | NUR ---
PT IN BED. EXPRESSED SATISFACTION WITH CARE AND DENIED FURTHER NEEDS. SAID WAS FEELING BETTER. PRAYED FOR ONGOING HEALING AND COMFORT.
--- NOTE | 2022-11-21 12:55 | NUR ---
MEDICATION ADMINISTRATION COMPLETED. PT IS A/O, STATES SHE DOESN'T FEEL SOB. CALL LIGHT WITHIN REACH.
[2022-11-21 13:10] VITALS: BP 162/86
--- NOTE | 2022-11-21 14:14 | NUR ---
pt reports pain. she is waiting on a home pain medication to arrive. md has approved that she take it.
--- NOTE | 2022-11-21 15:58 | NUR ---
PATIENT IS TOO TIRED TO TAKE A SHOWER. PATIENT GOT HERE SOMETIME EARLY THIS MORNING. PATIENT USES THE BEDSIDE COMMMODE.
[2022-11-21 18:12] VITALS: BP 168/105
--- NOTE | 2022-11-21 19:10 | NUR ---
BEDSIDE REPORT RECEIVED FROM OPAL MENDEZ, PT ALERT, RESTING IN BED, DENIES NEEDS AT THIS TIME, SIDE RAILS UP X 2.
[2022-11-21 20:54] VITALS: BP 147/100
--- NOTE | 2022-11-21 20:54 | NUR ---
PT ASSISTED UP TO BSC, TRANSFERS INDEPENDENTLY, SOB WITH EXERTION, BACK TO BED, VS AND ASSESSMENT DONE, RT MEDICATIONS GIVEN PER ORDER. SL IN R AC FLUSHES WELL WITH GOOD BLOOD RETURN. PT REMAINS ON ROOM AIR, PREFERS NOT TO HAVE BIPAP UNLESS ABSOLUTELY NECESSARY. PT DENIES NEEDS, REPORTS NO APPEDITE, HOB COMPLETELY ELEVATED, SIDE RAILS UP, PT PROPPED WITH PILLOWS, PT ATTEMPTING TO REST.
--- NOTE | 2022-11-21 23:10 | NUR ---
PT ASLEEP, REMAINS SITTING UP BUT HEAD TILTED FORWARD, RESP EVEN, FULL AND REGULAR, OXYGEN SAT 91%.
[2022-11-22] VITALS (7 sets, daily range): BP systolic 148–172; BP diastolic 99–112
--- NOTE | 2022-11-22 00:51 | NUR ---
PT ASLEEP, REMAINS SITTING UP WITH HEAD TILTED FORWARD, SATS 93%, RESP EVEN AND REG.
--- NOTE | 2022-11-22 02:20 | NUR ---
PT AWAKE, ALERT, VS DONE BP ELEVATED TO 160/108 ON LEFT ARM, PT STATES SHE HASN'T HAD TROUBLE WITH HER BP BEING HIGH UNTIL THE LAST COUPLE OF MONTHS, PT UP TO BSC, VOIDED 150ML YELLOW URINE, BACK TO BED, FOCUS ASSESSMENT DONE, PT DENIES NEEDS AT THIS TIME, SIPPING ON SODA.
--- NOTE | 2022-11-22 04:08 | NUR ---
PT ASLEEP, RESP EVEN AND FULL, SATS 90% ON RA
--- NOTE | 2022-11-22 04:50 | NUR ---
RN CALLED TO ROOM, PT C/O SOB, RIGHT CHEST DISCOMFORT, REQUESTING NEBULIZER TX, RT NOTIFIED AND IN FOR NEBULIZER TREATMENT. PT STATES TREATMENT GAVE RELIEF FROM CHEST PAIN AND SHE IS FEELING SHE IS BREATHING BETTER NOW.
--- NOTE | 2022-11-22 05:05 | NUR ---
PT AWAKE, VS DONE AND BP ELEVATED 172/107, PT C/O RIGHT FRONTAL HEADACHE, REQUESTING TYLENOL, TC TO DR CHAVEZ, ORDERS RECEIVED TO GIVE AM NORVAS NOW AND TYLENOL 650MG PO, PT MEDICATED PER ORDER.
--- NOTE | 2022-11-22 05:25 | NUR ---
LAB IN FOR AM BLOOD DRAW.
--- NOTE | 2022-11-22 06:20 | NUR ---
PT ASSISTED UP TO BSC PER PACKAGING SPECIALIST, PT TRANSFERS TO BSC ON HER OWN.
--- NOTE | 2022-11-22 07:15 | NUR ---
RECEIVED REPORT FROM [facility] NURSE. PT IS ALERT, SITTING UP IN BED. CPOX IN PLACE. REMAINS ON RA.
--- NOTE | 2022-11-22 08:20 | NUR ---
PT ASSESSMENT AND MEDICATION ADMINISTRATION COMPLETED. PT IS A/O, RESPIRATIONS EVEN AND REGULAR. REMAINS TACHYCARDIC. CPOX IN PLACE SPO2 90-91% ON RA. CALL LIGHT WITHIN REACH.
--- NOTE | 2022-11-22 09:20 | NUR ---
ASSISTED PT TO BEDSIDE COMMODE. IV ABX COMPLETED. BACK TO BED. CALL LIGHT WITHIN REACH. PLANS TO WORK WITH PHYSICAL THERAPY IN ABOUT 30MINUTES.
--- NOTE | 2022-11-22 11:30 | NUR ---
Spoke with Cintia. She is feeling somewhat better. She states she uses [place] [facility] and has an appt tomorrow. She asks if I can call and cancel for her. She states her friend will help her reschedule. I called and spoke with the pain clinic. UPdated Cintia is in the hospital and our hospital prefers to not order pain meds. Pain clinic is in agreement with this. They have Cintia's friend, Arleen's number. I let them know she will help Cintia to reschedule. We discussed the noninvasive vent Loida is working on. They cost per month for lifetime with be $60. Cintia states she will make this work. She denies other needs. She also states when she is feeling well enough she drives herself to the pain clinic. I will call Katelyn at [facility] to check on the status of the vent.
--- NOTE | 2022-11-22 12:10 | NUR ---
I was able to reach Katelyn at [facility]. She asks if Dr. Bateman will enter a note stating agreement for the noninvasive vent as original records/orders are greater than 30 days. Let her know I can ask. She will submit for auth today.
--- NOTE | 2022-11-22 13:47 | NUR ---
CM WAS CONCLUDING CONVERSATION UPON MY ARRIVAL AND INDICATED I SHOULD ENTER. PT WAS INTERACTIVE WITH CM AND AWARE OF NEEDS. PT INDICATED PHYSICAL THERAPY WOULD BE RETURNING AND SHE WAS IN HER "REST PHASE." SHORT VISIT TO ALLOW HER TO REST. PRAYED.
--- NOTE | 2022-11-22 19:25 | NUR ---
RECEIVED REPORT FROM DAY SHIFT RN. PATIENT IS RESTING IN BED WTCHING TV. PATIENT DENIES ANY NEEDS. CALL LIGHT IN REACH.
--- NOTE | 2022-11-22 20:30 | NUR ---
DISCUSSED CODE STATUS WITH MD, POLST FORM REVIEWED, UPDATED IN ORDERS.
--- NOTE | 2022-11-22 21:09 | NUR ---
PATIENTS VITALS TAKEN AND RECORDED. BSC EMPTIED. INTAKE AND OUTPUT RECORDED. PATIENTS PM MEDS GIVEN PER ORDER. PATIENT REPORTS 5/10 PAIN IN HER BACK, SCHEDULED PAIN MEDS GIVEN PER ORDER. PATIENTS IV FLUSHED AND SL PER ORDER. PATIENT PROVIDED WITH FRESH ICE FOR HER PEPSI. PATIENT ALBERTO ANY SOB. PATIENT IS ON RA. CPOX IN USE. PATIENT DENIES ANY FURTHER NEEDS. CALL LIGHT IN REACH.
--- NOTE | 2022-11-22 22:18 | NUR ---
PATIENT IS RESTING IN BED WATCHING TV. PATIENT DENIES ANY NEEDS. CALL LIGHT AND BELONGINGS ARE WITHIN REACH.
--- NOTE | 2022-11-23 00:20 | NUR ---
PATIENT IS RESTING IN BED WATCHING TV. PATIENT DENIES ANY SOB. PATIENT DENIES ANY NEEDS. CALL LIGHT IN REACH.
--- NOTE | 2022-11-23 02:21 | NUR ---
PATIENT IS RESTING IN BED WATCHING TV. PATIENTS BSC EMPTIED. PATIENT DENIES ANY NEEDS. CALL LIGHT IN REACH.
--- NOTE | 2022-11-23 04:16 | NUR ---
PATIENT IS RESTING IN BED WITH EYES CLSOED, RR 17. CALL LIGHT IN REACH.
[2022-11-23 06:05] VITALS: BP 163/96
--- NOTE | 2022-11-23 06:20 | NUR ---
PATIENT IS RESTING IN BED WATCHING TV. PATIENT DENIES ANY SOB. PATIENT REMAINS ON RA. CPOX IN USE. PATIENT REPORTS 6/10 PAIN IN HER BACK, PRN TYLENOL GIVEN PER ORDER. PATIENT DENIES ANY FURTHER NEEDS. CALL LIGHT IN REACH.
--- NOTE | 2022-11-23 07:30 | NUR ---
Faxed todays progress notes to Katelyn at [facility]. Note stated pt in need of noninvasive vent.
--- NOTE | 2022-11-23 07:30 | NUR ---
REPORT RECEIVED FROM NIGHT RN - ASSUMING CARE FOR PT. PT RESTING IN BED AWAKE, DENIES NEEDS AT THIS TIME. CALL LIGHT IN REACH.
--- NOTE | 2022-11-23 08:15 | NUR ---
ASSESSMENT COMPLETE - PT REMAINS STABLE ON ROOM AIR, EXPIRATORY WHEEZE IN BILAT LOWER LUNGS POSTERIOR, SOME SOB NOTED WITH AMBULATION SHORT DISTANCE TO BED SIDE COMMODE. AMBULATES TO BSC WITHOUT DIFFICULTY BY SELF. POOR APPETITE, PICKING AT BREAKFAST. IV SITE PATENT WITH ABX INFUSION STARTED. PT DENIES FURTHER NEEDS. CALL LIGHT IN REACH.
--- NOTE | 2022-11-23 08:21 | NUR ---
PT BOOSTED UP IN BED BY THIS EVS ATTENDANT AND RN. PT SAT UP FOR BREAKFAST. NO NEEDS. CALL LIGHT WITHIN REACH
--- NOTE | 2022-11-23 08:34 | NUR ---
TRIED SCHEDULING FU W DR. SALEEM. UNABLE TO DO SO AT THIS TIME. DR. HERNANDEZ OFFICE WILL CALL US BACK W DATE OF APPT
[2022-11-23 09:30] VITALS: BP 135/101
--- NOTE | 2022-11-23 09:58 | NUR ---
Spoke with Katelyn from [facility]. She has not received auth from [facility]. She has scheduled her RT to teach tomorrow if the pt remains in the hospital. I will discuss with Dr. Bateman.
--- NOTE | 2022-11-23 10:47 | NUR ---
RN ROUNDING ON PT - RESTING PARTIALLY SLUMPED OVER TO RIGHT SIDE SITTING UP IN BED. SPO2 89% ON ROOM AIR, NO DISTRESS OR SOB NOTED. CALL LIGHT IN REACH.
--- NOTE | 2022-11-23 11:00 | NUR ---
Notified by Dr. Bateman, this pt wants to dc to home today. I spoke with pt and she denies needs. Plans on dc to home and Loida will see her at her home tomorrow to set up noninvasive vent. Cintia will reschedule her pain clinic appt.
--- NOTE | 2022-11-23 11:21 | NUR ---
WENT IN THIS MORNING ASKED PATIENT IF SHE WOULD LIKE TO WASH HER FACE OR BRUSH HER TEETH AND SHE SAID NOT RIGHT NOW. I ALSO ASKED HER IF SHE WOULD LIKE TO TAKE A SHOWER TODAY AND SHE SAID IT WOULD DEPEND ON IF SHE GETS TO GO HOME.
[2022-11-23] MEDS ORDERED: AMLODIPINE BESYL5 MG PO (11:48)
--- NOTE | 2022-11-23 12:10 | NUR ---
RN ROUNDING ON PT - UPDATED PT ON POC FOR DC HOME. PT STATES UNDERSTANDING OF DIRECTIONS/PLAN. AWAITING PHARMACY EDUCATION/CONSULT AT THIS TIME. PT STATES SHE HAS RIDE HOME.
--- NOTE | 2022-11-23 13:10 | NUR ---
PT RECEIVING CARE FROM RT. UNABLE TO VISIT.
--- NOTE | 2022-11-24 06:37 | EKG ---
[facility] [address] [place] [address] Signed Sinus tachycardia Otherwise normal ECG When compared with ECG of 08-SEP-2021 10:42, Vent. rate has increased BY 45 BPM Confirmed by DORINA HER MD ([id number]) on 11/24/2022 6:36:57 AM Electronically Signed By: DORINA HER 11/24/22 0637 PATIENT NAME: KAILYN MEJÍA Electrocardiogram DATE OF : 55 PHYSICIAN: DORINA HER REPORT #: [id number] REPORT IS CONFIDENTIAL AND NOT TO BE RELEASED WITHOUT AUTHORIZATION
== END 2022-11-23 13:44 | disposition home or self-care (01) | DRG 191 ==
LOC: ED 01:28 → MS 01:30
PROVIDERS: ADMIT Internal Medicine; ATTEND Internal Medicine
PROC: 5A09357 Assistance with Respiratory Ventilation, Less than 24 Consecutive Hours, Continuous Positive Airway Pressure (ICD-10-PCS; principal; 2022-11-22)
DX: J44.1 Chronic obstructive pulmonary disease with (acute) exacerbation (principal); E87.20 Acidosis, unspecified; R64 Cachexia; Z68.1 Body mass index [BMI] 19.9 or less, adult; M54.32 Sciatica, left side; M40.209 Unspecified kyphosis, site unspecified; R03.0 Elevated blood-pressure reading, without diagnosis of hypertension; D72.829 Elevated white blood cell count, unspecified; Z20.822 Contact with and (suspected) exposure to COVID-19; Z87.891 Personal history of nicotine dependence; Z90.49 Acquired absence of other specified parts of digestive tract; Z98.890 Other specified postprocedural states; Z88.1 Allergy status to other antibiotic agents; Z88.0 Allergy status to penicillin; Z88.8 Allergy status to other drugs, medicaments and biological substances; Z79.899 Other long term (current) drug therapy; Z79.51 Long term (current) use of inhaled steroids; Z79.52 Long term (current) use of systemic steroids
CPT/HCPCS: 36415; 71045; 80048; 80053; 83605; 84484; 85025; 85379; 87502; 93005; 93010; 94640; 94660; 94762; 97162; A9270; G0480; J0696; J2930; J7121; U0002

== ENCOUNTER 2023-01-29 21:06 | Emergency (ER) | payer MEDICARE ==
[~2023-01-29] VITALS: Ht 165.1 cm; Wt 43.1 kg
[~2023-01-29 21:06] MED LIST changes: +AMLODIPINE BESYL5 MG PO; +AZITHROMYCIN250 MG PO; +BUPRENORPHINE-1 EACH SL; +FAMCICLOVIR500 MG PO; +HYDROCODON-ACE1 EA10 PO; +PREDNISONE20 MG PO
--- OUTSIDE RECORDS SUMMARY | 2023-01-29 21:10 | XMS ---
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 Care History Medical/Surgical 05/27/2019 [facility] Patient transferred from clinic to ED then admitted.\T\nbsp; Patient has new patient visit on 06/17/[address] Vieyra, 10/03/2018 [facility] - Patient is currently established with [facility]. If patient is seen in the ED during business hours. Please contact CHWs at [facility]. Care Recommendation: If this patient [...] providing care. Darian VISIT COUNT (12 MO.) 3 NANI Cuevas TOTAL 3 NOTE: Visits indicate total known visits. ED/UCC VISIT TRACKING (12 MO.) 01/29/2023 21:07 [facility] [place] TYPE: Emergency COMPLAINT: - FELL LAST 12/01/2022 12:06 [facility] [place] TYPE: Emergency COMPLAINT: - SOB, CHEST PAIN DIAGNOSES: - Allergy status to other antibiotic agents - Allergy status to penicillin - Chest pain, unspecified - Chronic obstructive pulmonary disease, unspecified - buttermaker continuous churn (current) use of systemic steroids - Other prison (current) drug therapy - Personal history of nicotine dependence - Zoster without complications 11/21/2022 01:29 [facility] [place] TYPE: Emergency COMPLAINT: - SOB INPATIENT VISIT TRACKING (12 MO.) 11/22/2022 13:09 [facility] [place] TYPE: Medical Surgical COMPLAINT: - COPD EXACERBATION DIAGNOSES: - Acidosis, unspecified - Acidosis, unspecified - Acquired absence of other specified parts of digestive tract - Acquired absence of other specified parts of digestive tract - Allergy status to other antibiotic agents - Allergy status to other antibiotic agents - Allergy status to other drugs, medicaments and biological substances - Allergy status to other drugs, medicaments and biological substances - Allergy status to penicillin - Allergy status to penicillin - Body mass index [BMI] 19.9 or less, adult - Body mass index [BMI] 19.9 or less, adult - Cachexia - Cachexia - Chronic obstructive pulmonary disease with (acute) exacerbation - Contact with and (suspected) exposure to COVID-19 - Contact with and (suspected) exposure to COVID-19 - Elevated blood-pressure reading, without diagnosis of hypertension - Elevated blood-pressure reading, without diagnosis of hypertension - Elevated white blood cell count, unspecified - Elevated white blood cell count, unspecified - buttermaker continuous churn (current) use of inhaled steroids - buttermaker continuous churn (current) use of inhaled steroids - half-way (current) use of systemic steroids - half-way (current) use of systemic steroids - Other prison (current) drug therapy - Other marine 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
[2023-01-29 23:18] LABS: MCH 27.4 (27-36); RDW 15.3 (10.5-15.0)
[2023-01-29 23:23] LABS: BASOPHILS 0.4 % (0-2); EOSINOPHILS 1.2 % (0-6); HEMATOCRIT 39.9 % (35.0-50.0); LYMPHOCYTES 13.7 % (24-44); MCHC 32.7 g/dl (30-36); MCV 83.9 fl (81-99); MONOCYTES 6.1 % (0-12); NEUTROPHILS 78.6 % (39-80); PLATELET COUNT 318 K/uL (140-440); RBC 4.75 M/ul (4.3-5.7)
[2023-01-29 23:28] LABS: ALBUMIN/GLOBULIN RATIO 0.94 (1.1-2.4); ANION GAP 8.7 (7-21); BILIRUBIN, TOTAL 0.6 ng/dL (0.2-1.0); BUN/CREATININE RATIO 23.52 (6.0-28.6); CALCIUM 8.6 mg/dL (8.5-10.1); CREATININE, SERUM 0.85 mg/dL (0.55-1.02); POTASSIUM 2.7 mmol/L (3.5-5.1); PROTEIN, TOTAL 6.2 g/dL (6.4-8.2)
[2023-01-29 23:33] LABS: BILIRUBIN, URINE NEGATIVE (negative); BLOOD/HGB, URINE MODERATE (Negative); KETONE, URINE NEGATIVE (Negative); LEUK ESTERASE, URINE NEGATIVE (negative); NITRITE, URINE NEGATIVE (negative)
[2023-01-29 23:39] LABS: CRYSTALS, URINE NONE SEEN (0-1+); EPITHELIAL CELLS, URINE SQUAMOUS 1+ /lpf (0-1+); RED BLOOD CELLS, URINE 21-40 /hpf (0-5)
[2023-01-29 23:40] LABS: BACTERIA, URINE 1+ /hpf (negative)
[2023-01-29 23:41] LABS: CASTS, URINE HYALINE 1+ \\lpf; REFLEX CULTURE, URINE No (No)
[2023-01-30] MEDS ORDERED: HYDROCODON-ACE1 EA10 PO (00:48)
[2023-01-30] MEDS ORDERED: KLOR-CON M1010 MEQ PO (00:48)
[2023-01-30 04:50] VITALS: BP 138/97
--- NOTE | 2023-01-30 21:09 | EKG ---
[facility] [address] [place] [address] Signed Normal sinus rhythm Minimal voltage criteria for LVH, may be normal variant ( Sokolow-Montes ) Prolonged QT Abnormal ECG When compared with ECG of 21-NOV-2022 01:45, No significant change was found Confirmed by Johnie Dean MD () on 01/30/2023 9:09:30 PM Electronically Signed By: JOHNIE DEAN MD 01/30/23 2109 PATIENT NAME: KAILYN MEJÍA Electrocardiogram DATE OF : 55 PHYSICIAN: JOHNIE DEAN MD REPORT #: [id number] REPORT IS CONFIDENTIAL AND NOT TO BE RELEASED WITHOUT AUTHORIZATION
== END 2023-01-30 04:50 | disposition home or self-care (01) ==
LOC: ED 21:06
PROVIDERS: Emergency Medicine
DX: S32.10XA Unspecified fracture of sacrum, initial encounter for closed fracture (principal); S32.059A Unspecified fracture of fifth lumbar vertebra, initial encounter for closed fracture; S32.049A Unspecified fracture of fourth lumbar vertebra, initial encounter for closed fracture; W19.XXXA Unspecified fall, initial encounter; E87.6 Hypokalemia; E83.42 Hypomagnesemia; J44.9 Chronic obstructive pulmonary disease, unspecified; R29.6 Repeated falls; Z88.0 Allergy status to penicillin; Z79.899 Other long term (current) drug therapy; Z79.52 Long term (current) use of systemic steroids; Z87.891 Personal history of nicotine dependence
CPT/HCPCS: 36415; 70450; 71045; 72125; 74177; 80053; 81001; 83735; 85025; 93005; 93010; 96366; 96368; 96375; 99284-25; A9270; J1170; J3475; J3480

== ENCOUNTER 2023-02-15 14:51 | Observation (INO) | payer MEDICARE ==
[~2023-02-15] VITALS: Ht 165.1 cm; Wt 30.2 kg
--- OUTSIDE RECORDS SUMMARY | ~2023-02-15 | XMS | Continuity of Care Document ---
Demographics + + + | Address | [address] | | | [place] [address] | + + + | Preferred Language | Unknown | + + + | Marital Status | Never | + + + | Druze Affiliation | Unknown | + + + | Race | White | + + + | Ethnic Group | Not or | + + + Author + + + | Author | [facility] | + + + | Organization | [facility] | + + + | Address | [address] | | | [place] [address] | + + + | Phone | | + + + Care Team Providers + + + + | Care Punch Operator Name | Role | Phone | + + + + Unavailable | Unavailable | + + + + Allergies No information. Encounters No information. Functional Status No information. Immunizations No information. Medications No information. Problems + + + + | date | description | facility | + + + + | 2022-11-17 16:00 | ENCNTR SCREEN FOR | [facility] | | | MALIGNANT NEOPLASM OF | | + + + + | 2022-11-22 13:09 | ELEVATED WHITE BLOOD CELL | [facility] | | | COUNT, UNSPECIFIED | | + + + + | 2022-11-22 13:09 | ACIDOSIS, UNSPECIFIED | [facility] | + + + + | 2022-11-22 13:09 | CHRONIC OBSTRUCTIVE | [facility] | | | PULMONARY DISEASE W (ACUTE) | | | | EXACERBATION | | + + + + | 2022-11-22 13:09 | UNSPECIFIED KYPHOSIS, SITE | [facility] | | | UNSPECIFIED | | + + + + | 2022-11-22 13:09 | SCIATICA, LEFT SIDE | [facility] | + + + + | 2022-11-22 13:09 | ELEVATED BLOOD-PRESSURE | [facility] | | | READING, W/O DIAGNOSIS OF | | + + + + | 2022-11-22 13:09 | Cachexia | [facility] | + + + + | 2022-11-22 13:09 | BODY MASS INDEX (BMI) 19.9 | [facility] | | | OR LESS, ADULT | | + + + + | 2022-11-22 13:09 | USP (CURRENT) USE OF | [facility] | | | INHALED STEROIDS | | + + + + | 2022-11-22 13:09 | USP (CURRENT) USE OF | [facility] | | | SYSTEMIC STEROIDS | | + + + + | 2022-11-22 13:09 | OTHER USP (CURRENT) | [facility] | | | DRUG THERAPY | | + + + + | 2022-11-22 13:09 | PERSONAL HISTORY OF | [facility] | | | NICOTINE DEPENDENCE | | + + + + | 2022-11-22 13:09 | ALLERGY STATUS TO | [facility] | | | PENICILLIN | | + + + + | 2022-11-22 13:09 | ALLERGY STATUS TO OTHER | [facility] | | | ANTIBIOTIC AGENTS STATUS | | + + + + | 2022-11-22 13:09 | ALLERGY STATUS TO OTH | [facility] | | | DRUG/MEDS/BIOL SUBST STATUS | | | | | | + + + + | 2022-11-22 13:09 | ACQUIRED ABSENCE OF OTHER | [facility] | | | SPECIFIED PARTS OF DIGES | | + + + + | 2022-11-22 13:09 | OTHER SPECIFIED | [facility] | | | POSTPROCEDURAL STATES | | + + + + | 2022-12-01 12:06 | Imaging @ Central Nervous | [facility] | | | System @ Computerized | | | | Tomography (CT Scan) @ | | | | Sella Turcica/Pituitary | | | | Gland | | + + + + | 2022-12-01 12:06 | CHRONIC OBSTRUCTIVE | [facility] | | | PULMONARY DISEASE, | | | | UNSPECIFIED | | + + + + | 2022-12-01 12:06 | CHEST PAIN, UNSPECIFIED | [facility] | + + + + | 2022-12-01 12:06 | USP (CURRENT) USE OF | [facility] | | | SYSTEMIC STEROIDS | | + + + + | 2022-12-01 12:06 | OTHER CLIENT RETENTION SPECIALIST (CURRENT) | [facility] | | | DRUG THERAPY | | + + + + | 2022-12-01 12:06 | PERSONAL HISTORY OF | [facility] | | | NICOTINE DEPENDENCE | | + + + + | 2022-12-01 12:06 | ALLERGY STATUS TO | [facility] | | | PENICILLIN | | + + + + | 2022-12-01 12:06 | ALLERGY STATUS TO OTHER | [facility] | | | ANTIBIOTIC AGENTS STATUS | | + + + + | 2023-01-29 21:07 | HYPOMAGNESEMIA | [facility] | + + + + | 2023-01-29 21:07 | HYPOKALEMIA | [facility] | + + + + | 2023-01-29 21:07 | CHRONIC OBSTRUCTIVE | [facility] | | | PULMONARY DISEASE, | | | | UNSPECIFIED | | + + + + | 2023-01-29 21:07 | PAIN IN LEFT LEG | [facility] | + + + + | 2023-01-29 21:07 | REPEATED FALLS | [facility] | + + + + | 2023-01-29 21:07 | UNSP FRACTURE OF FOURTH | [facility] | | | LUMBAR VERTEBRA, INIT FOR | | + + + + | 2023-01-29 21:07 | UNSP FRACTURE OF FIFTH | [facility] | | | LUMBAR VERTEBRA, INIT FOR C | | | | | | + + + + | 2023-01-29 21:07 | UNSP FRACTURE OF SACRUM, | [facility] | | | INIT ENCNTR FOR CLOSED FR | | + + + + | 2023-01-29 21:07 | UNSPECIFIED FALL, INITIAL | [facility] | | | ENCOUNTER | | + + + + | 2023-01-29 21:07 | USP (CURRENT) USE OF | [facility] | | | SYSTEMIC STEROIDS | | + + + + | 2023-01-29 21:07 | OTHER USP (CURRENT) | [facility] | | | DRUG THERAPY | | + + + + | 2023-01-29 21:07 | PERSONAL HISTORY OF | [facility] | | | NICOTINE DEPENDENCE | | + + + + | 2023-01-29 21:07 | ALLERGY STATUS TO | [facility] | | | PENICILLIN | | + + + + | 2023-02-06 11:43 | CHRONIC OBSTRUCTIVE | [facility] | | | PULMONARY DISEASE, | | | | UNSPECIFIED | | + + + + | 2023-02-06 11:43 | CONTUSION OF SCALP, | [facility] | | | INITIAL ENCOUNTER | | + + + + | 2023-02-06 11:43 | FALL SAME LEV FROM | [facility] | | | SLIP/TRIP W/O STRIKE | | | | AGAINST OB | | + + + + | 2023-02-06 11:43 | OTHER USP (CURRENT) | [facility] | | | DRUG THERAPY | | + + + + | 2023-02-06 11:43 | PERSONAL HISTORY OF | [facility] | | | NICOTINE DEPENDENCE | | + + + + | 2023-02-06 11:43 | ALLERGY STATUS TO | [facility] | | | PENICILLIN | | + + + + | 2023-02-06 11:43 | ALLERGY STATUS TO OTHER | [facility] | | | ANTIBIOTIC AGENTS STATUS | | + + + + Procedures No information. Results/Labs No information. Social History +--------+ + + | date | description | facility | +--------+ + + Vital Signs No information."
--- OUTSIDE RECORDS SUMMARY | ~2023-02-15 | XMS | Continuity of Care Document ---
Demographics + + + | Address | [address] | | | [place] [address] | + + + | Preferred Language | Unknown | + + + | Marital Status | Never | + + + | Buddhism Affiliation | Unknown | + + + | Race | White | + + + | Ethnic Group | Not or | + + + Author + + + | Author | [facility] | + + + | Organization | [facility] | + + + | Address | [address] | | | [place] [address] | + + + | Phone | | + + + Care Team Providers + + + + | Care Clinical Manager Name | Role | Phone | + [...] + + + | 2022-11-22 13:09 | [facility] (CURRENT) USE OF | [facility] | | | INHALED STEROIDS | | + + + + | 2022-11-22 13:09 | [facility] (CURRENT) USE OF | [facility] | | | SYSTEMIC STEROIDS | | + + + + | 2022-11-22 13:09 | OTHER [facility] (CURRENT) | [facility] | | | DRUG [...] + + + | 2022-12-01 12:06 | [facility] (CURRENT) USE OF | [facility] | | | SYSTEMIC STEROIDS | | + + + + | 2022-12-01 12:06 | OTHER CLAIMS REPRESENTATIVE (CURRENT) | [facility] | | | DRUG [...] + + + | 2023-01-29 21:07 | [facility] (CURRENT) USE OF | [facility] | | | SYSTEMIC STEROIDS | | + + + + | 2023-01-29 21:07 | OTHER [facility] (CURRENT) | [facility] | | | DRUG [...] + + | 2023-02-06 11:43 | OTHER [facility] (CURRENT) | [facility] | | | DRUG [...]
[~2023-02-15 14:51] MED LIST changes: +KLOR-CON M1010 MEQ PO
--- OUTSIDE RECORDS SUMMARY | 2023-02-15 14:52 | XMS ---
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 Care History Medical/Surgical 05/27/2019 [facility] Patient transferred from clinic to ED then admitted.\T\nbsp; Patient has new patient visit on 06/17/[address] Vieyra, 10/03/2018 [facility] - Patient is currently established with [facility]. If patient is seen in the ED during business hours. Please contact CHWs at [facility]. Care Recommendation: If this patient has had [...] providing care. Darian VISIT COUNT (12 MO.) 5 NANI Cuevas TOTAL 5 NOTE: Visits indicate total known visits. ED/UCC VISIT TRACKING (12 MO.) 02/15/2023 14:51 [facility] [place] TYPE: Emergency COMPLAINT: - SHORT OF BREATH 02/06/2023 11:43 [facility] [place] TYPE: Emergency COMPLAINT: - FALL DIAGNOSES: - Allergy status to other antibiotic agents - Allergy status to penicillin - Chronic obstructive pulmonary disease, unspecified - Contusion of scalp, initial encounter - Fall on same level from slipping, tripping and stumbling without subsequent striking against object, initial encounter - Other half-way (current) drug therapy - Personal history of nicotine dependence 01/29/2023 21:07 [facility] [place] TYPE: Emergency COMPLAINT: - FELL LAST MONDAY DIAGNOSES: - Allergy status to penicillin - Chronic obstructive pulmonary disease, unspecified - Hypokalemia - Hypomagnesemia - jail (current) use of systemic steroids - Other half-way (current) drug therapy - Pain in left leg - Personal history of nicotine dependence - Repeated falls - Unspecified fall, initial encounter - Unspecified fracture of fifth lumbar vertebra, initial encounter for closed fracture - Unspecified fracture of fourth lumbar vertebra, initial encounter for closed fracture - Unspecified fracture of sacrum, initial encounter for closed fracture 12/01/2022 12:06 [facility] [place] TYPE: Emergency COMPLAINT: - SOB, CHEST PAIN DIAGNOSES: - Allergy status to other antibiotic agents - Allergy status to penicillin - Chest pain, unspecified - Chronic obstructive pulmonary disease, unspecified - continuous churn buttermaker (current) use of systemic steroids - Other half-way (current) drug therapy - Personal history of [...] Elevated white blood cell count, unspecified - continuous churn buttermaker (current) use of inhaled steroids - continuous churn buttermaker (current) use of inhaled steroids - continuous churn buttermaker (current) use of systemic steroids - continuous churn buttermaker (current) use of systemic steroids - Other half-way (current) drug therapy - Other half-way (current) drug therapy - Other specified postprocedural states - Other specified postprocedural states - Personal history of nicotine dependence - Personal history of nicotine dependence - Sciatica, left side - Sciatica, left side - Unspecified kyphosis, site unspecified - Unspecified kyphosis, site unspecified [email or web address]
[2023-02-15 15:25] LABS: PH, VENOUS 7.532 (7.31-7.41)
[2023-02-15 15:26] LABS: BASOPHILS 0.5 % (0-2); EOSINOPHILS 0.9 % (0-6); HEMATOCRIT 41.8 % (35.0-50.0); HEMOGLOBIN 13.5 g/dL (12.0-18.0); LYMPHOCYTES 10.8 % (24-44); MCH 27.7 (27-36); MCHC 32.4 g/dl (30-36); MCV 85.7 fl (81-99); MONOCYTES 6.3 % (0-12); NEUTROPHILS 81.5 % (39-80); PLATELET COUNT 340 K/uL (140-440); RBC 4.88 M/ul (4.3-5.7); RDW 15.6 (10.5-15.0)
[2023-02-15 15:45] LABS: ALBUMIN 2.7 g/dL (3.4-5.0); ALBUMIN/GLOBULIN RATIO 0.84 (1.1-2.4); ANION GAP 15.2 (7-21); BILIRUBIN, TOTAL 1.1 ng/dL (0.2-1.0); CALCIUM 9.1 mg/dL (8.5-10.1); CREATININE, SERUM 0.88 mg/dL (0.55-1.02); MAGNESIUM 1.4 mg/dL (1.8-2.4); POTASSIUM 4.2 mmol/L (3.5-5.1); PROTEIN, TOTAL 5.9 g/dL (6.4-8.2)
[2023-02-15 15:48] LABS: INFLUENZA B NAA NEGATIVE (NEGATIVE); RESPIRATORY SYNCYTIAL VIR NAA NEGATIVE (NEGATIVE)
[2023-02-15] MEDS ORDERED: GABAPENTIN800 MG PO (17:42)
[2023-02-15] MEDS ORDERED: PREDNISONE10 MG PO (17:42)
[2023-02-15] MEDS ORDERED: HYDROXYZINE HCL50 MG PO (17:52)
[2023-02-15 17:55] VITALS: BP 126/93
--- NOTE | 2023-02-15 17:55 | NUR ---
PATIENT TRANSFERRED FROM ED-2 TO ROOM 107 IN STRETCHER. STEADY GAIT FROM STRETCHER TO BED. TRANSFERRED BY THIS RN. VITALS AND WEIGHT OBTAINED. PATIENT ALERT AND ORIENTED X4. REPORT TO Afia BLOOM RN.
--- NOTE | 2023-02-15 18:10 | NUR ---
CONSTRUCTION FIELD ENGINEER #1 PLACED ON PATIENT. STANDBY ASSIST ONTO BSC
--- NOTE | 2023-02-15 18:29 | NUR ---
REPORT RECEIVED FROM VANESSA VILLAFUERTE. PT UP TO BEDSIDE COMODE. GOWN CHANGED. NGOZI CARE DONE. DEPENDS IN PLACE. PANTS REMVOED AND PHOTOGRAPHS TAKEN OF SCABS, BRUISES AND SHINGLES TAKEN. 1 PERSON ASSIST BACK TO BED. WARM BLANKETS PROVIDED. PT REPORTS 8/10 PAIN IN HER BACK. PT REQUESTS HER HOME MEDICATIONS. HOME MEDICATION LIST REVIEWED. UPDATED AND STATES HE WILL PLACE ORDERS. PT SEVERELY CACHECTIC WITH SEVERE KYPHOSIS ALSO NOTED. PT REPORTS MULTIPLE FALLS AT HOME, WITH LAST FALL 3-4 DAYS AGO. MULTIPLE BRUISES AND SCABS NOTED. SEE PHOTOGRAPHS. RIGHT BLACK EYE ALSO PRESENT. PT STATES "I LANDED ON MY HEAD LITERALLY." PT STATES SHE USESE A CANE AT HOME. LUNG SOUNDS CLEAR. HEART TONES REGULAR. SINUS TACHYCARDIA SEEN ON TELMETRY MONITORING. PT REPORTS SHE HAS RECENTLY LOST ABOUT 15LBS OVER THE LAST MONTH. PT REOPRTS SHE IS NOT NORMALLY INCONTINANT BUT HAS HAS TROUBLE THIS WEEK. PT REPORTS SHE HAS A CPAP AT HOME BUT DOES NOT USE IT BECUASE "I'VE JUST BEEN TO BUSY BEING SICK." ELVIS AND 7-UP. PROVIDED TO PT PER HER REQUEST. NO ADDITONAL REQUSTS OR COMPLAINTS. CALL LIGHT WITHIN REACH. BED RAILS UP. PT OREINTED TO ROOM AND USE OF CALL LIGHT.
[2023-02-15] MEDS ORDERED: PRILOSEC10 M1 (18:34)
[2023-02-15] MEDS ORDERED: OMEPRAZOLE20 MG PO (18:34)
--- NOTE | 2023-02-15 19:11 | NUR ---
BUPINORPHEN/NALOXONE SENT TO [facility] PHARMACIST FOR VARIFICATION. VARIFIED, GIVEN ORDERED. PHARMACIST TO BEDSIDE TO REVIEW MEDICAITONS WITH PT.
--- NOTE | 2023-02-15 19:17 | NUR ---
medications reconciled using pharmacy records, PCP notes and patient interview. Patient is using her own buprenorphone/naloxone
--- NOTE | 2023-02-15 20:02 | NUR ---
REPORT RECEIVED FROM RUBI RN. PT SITTING UP IN BED AWAKE AND ALERT. NO NEEDS EXPRESSED AT THIS TIME. CALL LIGHT W/IN REACH. WILL CONTINUE TO MONITOR.
--- NOTE | 2023-02-15 22:30 | EKG ---
[facility] [address] [place] [address] Signed Sinus tachycardia Minimal voltage criteria for LVH, may be normal variant ( Sokolow-Montes ) Nonspecific T wave abnormality Abnormal ECG When compared with ECG of 29-JAN-2023 22:57, Non-specific change in ST segment in Anterior leads Confirmed by Johnie Dean MD () on 02/15/2023 10:30:29 PM Electronically Signed By: JOHNIE DEAN MD 02/15/232229 PATIENT NAME: KAILYN MEJÍA Electrocardiogram DATE OF : 55 PHYSICIAN: JOHNIE DEAN MD REPORT #: [id number] REPORT IS CONFIDENTIAL AND NOT TO BE RELEASED WITHOUT AUTHORIZATION
[2023-02-15 22:38] VITALS: BP 153/93
[2023-02-16] VITALS (7 sets, daily range): BP systolic 108–141; BP diastolic 61–97
--- NOTE | 2023-02-16 00:44 | NUR ---
PT SITTING UP IN BED WATCHING TV. CALL LIGHT WITHIN REACH. NO NEEDS EXPRESSED AT THIS TIME. IV FLUIDS INFUSING. SAFETY PRECAUTIONS IN PLACE.
--- NOTE | 2023-02-16 04:26 | NUR ---
PT SITTING UP IN BED WATCHING TV. NO SIGNS OF ACUTE DISTRESS. NO NEEDS EXPRESSED AT THIS TIME. CALL LIGHT WITHIN REACH. SAFETY PRECAUTIONS IN PLACE. IV FLUIDS INFUSING. WILL CONTINUE TO MONITOR.
[2023-02-16 06:04] LABS: BASOPHILS 0.4 % (0-2); EOSINOPHILS 0.4 % (0-6); HEMATOCRIT 35.8 % (35.0-50.0); HEMOGLOBIN 11.7 g/dL (12.0-18.0); LYMPHOCYTES 15.9 % (24-44); MCH 27.6 (27-36); MCHC 32.8 g/dl (30-36); MCV 84.4 fl (81-99); MONOCYTES 8.2 % (0-12); NEUTROPHILS 75.1 % (39-80); PLATELET COUNT 317 K/uL (140-440); RBC 4.24 M/ul (4.3-5.7); RDW 15.4 (10.5-15.0)
[2023-02-16 06:24] LABS: ALBUMIN 2.6 g/dL (3.4-5.0); ALBUMIN/GLOBULIN RATIO 0.9 (1.1-2.4); ANION GAP 7.3 (7-21); BILIRUBIN, TOTAL 0.8 ng/dL (0.2-1.0); BUN/CREATININE RATIO 23.07 (6.0-28.6); CALCIUM 8.7 mg/dL (8.5-10.1); CREATININE, SERUM 0.78 mg/dL (0.55-1.02); MAGNESIUM 1.5 mg/dL (1.8-2.4); PHOSPHORUS, INORGANIC 3.5 mg/dL (2.5-4.9); POTASSIUM 3.3 mmol/L (3.5-5.1); PROTEIN, TOTAL 5.5 g/dL (6.4-8.2)
--- NOTE | 2023-02-16 07:22 | NUR ---
PATIENT IN BED RESTING, EYES CLOSED, RESPIRATIONS EVEN AND NON LABORED. PATIENT HAS NO NOTABLE DISTRESS. PERSONAL SUPPLIES AND CALL LIGHT WITHIN REACH.
--- NOTE | 2023-02-16 09:30 | NUR ---
Spoke with pt and she states she cont. to live with friend Arleen. She does not use DME, but has a cane and a walker. She states they do very little. They have a friend thats grocery shops for them. They are able to microwave meals. She states very little cleaning gets done as they are both incapcitated. Pt has a black eye and states she has been falling frequently. She plans on dc to home with her friend Arleen when medically cleared. She denies needs, would like some HHN and tubing to take home with her. I will speak with PT.
--- NOTE | 2023-02-16 10:55 | NUR ---
Patient awake, alert and oriented x4. Patient is on room air, respirations non labored. Patient denies shortness of breath at rest. Patient up to commode to void, clear yellow urine ntoed. Patient reports she becomes a bit sob with exertion. No current needs, personal supplies and call light within reach.
--- NOTE | 2023-02-16 12:07 | NUR ---
Admin toradol 15mg IV for reports 5/10 back pain.
--- NOTE | 2023-02-16 14:05 | NUR ---
SHORT VISIT PT STATED WAS TIRED. GAVE PRAYER SHAWL. PRAYED FOR STRENGTH OF BODY AND SPIRIT.
--- NOTE | 2023-02-16 17:09 | NUR ---
Patient in watching tv, alert and oriented x4, no distress. Vital signs stable, afebrile. Dinner to patient at this time. Patient's IV site remains patent, fluids inufsing per provider order. No current needs, personal supplies and call light within reach.
--- NOTE | 2023-02-16 19:26 | NUR ---
REPORT RECEIVED FROM DAY SHIFT RN. PT SITTING UP IN BED WATCHING TV. NO SIGNS OF ACUTE DISTRESS. NO NEEDS EXPRESSED AT THIS TIME. CALL LIGHT WITHIN REACH. SAFETY PRECAUTIONS IN PLACE.
[2023-02-17 02:09] VITALS: BP 143/87
--- NOTE | 2023-02-17 05:46 | NUR ---
bed alarm going off, pt on bsc. lab also in room and assisting pt to bsc, pt voided 500mls and back in bed. bed alarm resumed. call light in reach. i&o's collected, lamont mckenzie in room to collect vs.
[2023-02-17 05:47] VITALS: BP 126/95
[2023-02-17 05:47] LABS: BASOPHILS 0.6 % (0-2); EOSINOPHILS 0.8 % (0-6); HEMATOCRIT 37.9 % (35.0-50.0); HEMOGLOBIN 12.1 g/dL (12.0-18.0); LYMPHOCYTES 25.8 % (24-44); MCH 27.5 (27-36); MCHC 31.9 g/dl (30-36); MCV 86.3 fl (81-99); MONOCYTES 7.1 % (0-12); NEUTROPHILS 65.7 % (39-80); PLATELET COUNT 291 K/uL (140-440); RBC 4.39 M/ul (4.3-5.7); RDW 15.7 (10.5-15.0)
[2023-02-17 06:03] LABS: ALBUMIN 2.7 g/dL (3.4-5.0); ALBUMIN/GLOBULIN RATIO 0.96 (1.1-2.4); BILIRUBIN, TOTAL 0.4 ng/dL (0.2-1.0); BUN/CREATININE RATIO 18.29 (6.0-28.6); CALCIUM 8.6 mg/dL (8.5-10.1); CREATININE, SERUM 0.82 mg/dL (0.55-1.02); PROTEIN, TOTAL 5.5 g/dL (6.4-8.2)
--- NOTE | 2023-02-17 07:32 | NUR ---
REPORT GIVEN TO DAY SHIFT NURSE. PT SITTING UP IN BED WATCHING TV. NO SIGNS OF ACUTE DISTRESS. NO NEEDS EXPRESSED AT THIS TIME. CALL LIGHT WITHIN REACH. SAFETY PRECAUTIONS IN PLACE.
--- NOTE | 2023-02-17 08:30 | NUR ---
Patient awake in bed, alert and oriented x4. Patient is on room air, respirations even and non labored. Patient denies shortness of breath at rest. Admin toradol 15mg IV for reports of 5/10 chronic back pain. IV site patent, fluids infusing per provider order. Patient denies needs at this time. personal supplies and call light within reach.
--- NOTE | 2023-02-17 09:26 | NUR ---
SPOKE WITH PATIENT SHE IS SITTING UP IN BED. INFORMED HER SNF HAS BEEN RECOMMONDED BY THERAPIES. STATES SHE DOES NOT WANT TO GO TO SNF. OFFERED TO ASSIST WITH SETTING UP HOME HEALTH TO ASSIST WITH INCREASING HER STRENGTH TO HELP DECREASE HER FALLS. STATES SHE DOES NOT SEE A NEED FOR HOME HEALTH AT THIS TIME. INFORMED HER TO DISCUSS WITH HER PCP AT HER FOLLOW-UP APPOINTMENT IF SHE CHANGES HER MIND. EDUCATED ON IMPORTANCE OF INCREASING STRENGTH AND CONTINUE TO WORK WITH PT WELL.
[2023-02-17 09:35] VITALS: BP 123/86
--- NOTE | 2023-02-17 09:40 | NUR ---
VERIFIED WITH PATIENT SHE HAS A NEBULIZER AT HOME. STATES SHE HAS A NEBULIZER AT HOME WELL HAND HELD APPLIANCE TO USE IT. DR. CHAVEZ NOTIFIED NEBULIZER IS AVAILABLE TO PATIENT.
== END 2023-02-17 11:15 | disposition home or self-care (01) ==
LOC: ED 14:51 → MS 14:52
PROVIDERS: Internal Medicine; ADMIT Family Medicine; ATTEND Family Medicine
DX: J44.1 Chronic obstructive pulmonary disease with (acute) exacerbation (principal); R00.0 Tachycardia, unspecified; B02.9 Zoster without complications; S00.11XA Contusion of right eyelid and periocular area, initial encounter; S00.03XA Contusion of scalp, initial encounter; W19.XXXA Unspecified fall, initial encounter; Z66 Do not resuscitate; Z20.822 Contact with and (suspected) exposure to COVID-19; Z87.891 Personal history of nicotine dependence; Z88.0 Allergy status to penicillin; Z88.8 Allergy status to other drugs, medicaments and biological substances; Z79.899 Other long term (current) drug therapy
CPT/HCPCS: 36415; 71045; 71260; 80053; 82803; 83735; 84100; 84484; 85025; 85379; 87502; 93005; 93010; 94640; 94644; 94760; 94761; 96365; 96366; 96372; 96374; 96375; 96376; 97161; 97165; 99285-25; A9270; C9803; G0378; J0456; J1650; J1885; J2930; J3475; J3480; J3490; J7060; J7121; Q9967; U0002

== ENCOUNTER 2023-12-31 20:57 | Emergency (ER) | payer MEDICARE ==
[~2023-12-31] VITALS: Ht 165.1 cm; Wt 29.7 kg
[~2023-12-31 20:57] MED LIST changes: +AMLODIPINE BESY10 MG PO; +ELIQUIS2.5 MG PO; +ELIQUIS5 MG PO; +GABAPENTIN800 MG PO; +HYDROXYZINE HCL50 MG PO; +LIDOCAINE1 EACH TOP; +NEURONTIN600 MG PO; +OXYCODONE HCL10 MG PO; +PREDNISONE10 MG PO; +PRILOSEC10 M1; +SERTRALINE HCL100 MG PO
[2023-12-31] MEDS ORDERED: ALBUTEROL/IPRATROPIUM 3 ML NEB INH PRN (21:30)
[2023-12-31 21:32] LABS: HEMOGLOBIN 8.6 g/dL (12.0-18.0)
[2023-12-31 21:36] LABS: BASOPHILS 0.6 % (0-2); EOSINOPHILS 1.1 % (0-6); HEMATOCRIT 28.5 % (35.0-50.0); LYMPHOCYTES 19.9 % (24-44); MCH 19.4 (27-36); MCV 64.6 fl (81-99); MONOCYTES 9.3 % (0-12); NEUTROPHILS 69.1 % (39-80); PLATELET COUNT 285 K/uL (140-440); RBC 4.41 M/ul (4.3-5.7); RDW 19.8 (10.5-15.0)
[2023-12-31 21:43] LABS: ALBUMIN 3.2 g/dL (3.4-5.0); ALBUMIN/GLOBULIN RATIO 1.14 (1.1-2.4); ANION GAP 13.6 (7-21); BILIRUBIN, TOTAL 0.6 ng/dL (0.2-1.0); CALCIUM 9.3 mg/dL (8.5-10.1); CREATININE, SERUM 0.8 mg/dL (0.55-1.02); MAGNESIUM 1.8 mg/dL (1.8-2.4); POTASSIUM 3.6 mmol/L (3.5-5.1)
[2023-12-31] MEDS ORDERED: methylPREDNISolone SOD SUCC 125 MG/2 ML VIAL IV ONE (22:15)
[2023-12-31] MEDS ORDERED: LACTATED RINGER'S 1,000 ML IV ONE (22:15)
[2024-01-01 00:10] LABS: BILIRUBIN, URINE POSITIVE (negative); BLOOD/HGB, URINE NEGATIVE (Negative); KETONE, URINE TRACE (Negative); LEUK ESTERASE, URINE NEGATIVE (negative); NITRITE, URINE NEGATIVE (negative)
[2024-01-01 01:29] VITALS: BP 158/107
--- NOTE | 2024-01-02 12:30 | EKG ---
[facility] [address] [place], [place] [address] Signed Sinus tachycardia Minimal voltage criteria for LVH, may be normal variant ( Sokolow-Montes ) Borderline ECG When compared with ECG of 28-AUG-2023 11:44, No significant change was found Confirmed by Catarina Cummins ([id number]) on 01/02/2024 12:30:33 PM Electronically Signed By: CATARINA CUMMINS MD 01/02/24 1230 PATIENT NAME: KAILYN MEJÍA Electrocardiogram DATE OF : 55 PHYSICIAN: CATARINA CUMMINS MD REPORT #: [id number] REPORT IS CONFIDENTIAL AND NOT TO BE RELEASED WITHOUT AUTHORIZATION
== END 2024-01-01 03:53 | disposition home or self-care (01) ==
LOC: ED 20:57
PROVIDERS: Internal Medicine
DX: E86.0 Dehydration (principal); R19.7 Diarrhea, unspecified; J44.9 Chronic obstructive pulmonary disease, unspecified; Z87.891 Personal history of nicotine dependence; Z88.0 Allergy status to penicillin; Z88.8 Allergy status to other drugs, medicaments and biological substances; Z79.52 Long term (current) use of systemic steroids; Z79.01 Long term (current) use of anticoagulants; Z79.899 Other long term (current) drug therapy
CPT/HCPCS: 36415; 71045; 80053; 81003; 83735; 84484; 85025; 85060; 93005; 93010; 94640; 96361; 96374; 99285; J2919; J7121